=== PATIENT | male | born 1940 | race African-American/Black ===

== ENCOUNTER 2016-09-15 15:59 | Inpatient (IN) ==
[2016-09-15] MEDS ORDERED: methylPREDNISolone SOD SUC 125 MG/2 ML VIAL IV STA (16:54)
[2016-09-15] MEDS ORDERED: ASPIRIN 325 MG TABLET PO STA (16:54)
--- NOTE | 2016-09-15 16:56 | Emergency Department Note ---
IBenjamin Emily, am scribing for, and in the presence of, Grayson Nelson MD 16: 53. Omar Garvin Charles R, MD, personally performed the services described in this documentation, ascribed by Malika Alexander in my presence, and it is both accurate and complete [id number] . Arrival - Arrival Chief Complaint: Shortness of Breath Stated Complaint: short of breath,congestion ED Nursing Triage Note: C/o shortness of breath, productive cough, and congestion-onset one week ago. Denies CP. Mode of Arrival: Wheelchair Limitations: No Limitations Source: Patient, Significant other Time Seen by Provider: 09/15/16 16:28 - History of Present Illness HPI Narrative: Pt is a 76 y/o male who came to ED with c/o SOB with productive cough that has been ongoing for a week now. Pt has associated sx of MEEHAN but notes "seems to have that a lot lately." Pt was in hospital on July 15, 2016, for PE (under supervision of Dr. Adwoa Pepe) that had cardiac arrest 4x, in which had a peg tube and IVC filter placed (Dr. Jamison), but only placed on aspirin daily. Family member notes his peg tube was recently taken out and pt can swallow on his own now. Pt is a former smoker and is constantly on O2 at home. Onset (ago): week(s) Consistency: constant Severity: mild, moderate Severity scale (1-10): 4 Quality: fullness Allergies/Adverse Reactions: Allergies Allergy/AdvReac Type Severity Reaction Status Date / Time No Known Allergies Allergy Verified 06/15/15 21:34 Home Medications: Home Medications Medication Instructions Recorded Confirmed Type Albuterol/Ipratropium Neb [Duoneb] 3 ml RESP TX RT Q6H WA 06/29/16 09/15/16 History Amlodipine Besylate 5 mg PO DAILY 06/29/16 09/15/16 History Aspirin Chew Tab 81 mg PO DAILY 06/29/16 09/15/16 History Cilostazol 100 mg PO BID 06/29/16 09/15/16 History Magnesium Hydroxide Susp [Milk of 30 ml PO Q4H PRN 06/29/16 09/15/16 History Magnesia] Metoprolol Tartrate 50 mg PO BID 06/29/16 09/15/16 History Pentoxifylline 400 mg PO TID W/MEALS 06/29/16 09/15/16 History Polyvinyl Alcohol 1.4% Oph No 1 drop BOTH EYES TID PRN 06/29/16 09/15/16 History [Artificial Tears Oph Soln] clonazePAM TAB [KlonoPIN] 0.25 mg PO BEDTIME 06/29/16 09/15/16 History raNITIdine HCl [Ranitidine HCl] 150 mg PO BID 06/29/16 09/15/16 History Furosemide Tab [Lasix Tab] 40 mg PO DAILY #30 tablet 07/15/16 09/15/16 Rx Albuterol Sulfate [Ventolin HFA] 1 puff INH Q4H 09/15/16 09/15/16 History Metformin HCl 1,000 mg PO BID 09/15/16 09/15/16 History Review of System - Review of System 12 point system: reviewed and no additional remarkable complaints except as stated - Review of System Constitutional: Absent: chills, diaphoresis, fever, weakness Respiratory: Present: cough (productive), respiratory distress Cardiovascular: Present: dyspnea on exertion. Absent: chest pain Gastrointestinal: Absent: abdominal pain, nausea Musculoskeletal: Absent: arm pain, back pain, leg pain, neck pain Skin: Absent: rash Neurological: Absent: headache Medical,Surgical,& Family Hx - Medical History Cardio: History of: CHF, CAD, Hypertension, NC, PVD HEENT: History of: Ear Problem, Eye Problem, Glaucoma No history of: Dental Problems Endocrine: History of: Dyslipidemia Respiratory: History of: COPD (home oxygen), Obstructive Sleep Apnea, Pulmonary Embolism (APR 2016) Gastrointestinal: History of: GERD, Hemorrhoids Musculoskeletal: History of: Back/Neck Problems (chronic back pain) No history of: Amputation Hematology: History of: Clotting Problems (PULMONARY EMBOLISM APR 2016) - Surgical History Cardiac Surgeries: Sugical HX of: Cardiac Catheterization, Vascular Access Devices Neurologic Surgeries: Patient denies: Neurologic Surgery Abdominal Surgeries: Surgical HX of: Abdominal Surgery (PEG PLACEMENT APR 2016) Reproductive Surgeries: Patient denies;: Genitourinary Surgery Orthopedic Surgeries: Surgical HX of;: Orthopedic Surgery (back surgery) - Social History Smoking Status: Former smoker Frequency of Alcohol Use: None Type of Drug Use: None Exam Vital Signs: Vital Signs Temperature 97.6 F 09/15/16 16:23 Pulse Rate 128 H 09/15/16 18:40 Respiratory Rate 28 H 09/15/16 18:40 Blood Pressure 146/73 09/15/16 16:23 O2 Sat by Pulse Oximetry 96 09/15/16 18:40 - General General appearance: alert, in no apparent distress - Head Head exam: Present: atraumatic, normocephalic - Eye Eye exam: Present: PERRL, EOMI - ENT ENT exam: Present: mucous membranes moist. Absent: mucous membranes dry - Neck Neck exam: Present: full ROM. Absent: tenderness - Chest Chest inspection: Present: symmetric chest wall rise, other (barrel chested). Absent: tenderness - Respiratory Respiratory exam: Present: accessory muscle use, wheezes. Absent: normal lung sounds bilaterally (decreased breath sounds due to poor effort), respiratory distress - Cardiovascular Cardiovascular exam: Present: tachycardia, normal heart sounds. Absent: murmur , rubs, gallop - Abdominal Exam Abdominal exam: Present: soft. Absent: distention, tenderness, guarding, rebound - Extremities Exam Extremities exam: Present: full ROM. Absent: tenderness, pedal edema - Neurological Exam Neurological exam: Present: alert, oriented X3, CN II-XII intact. Absent: motor sensory deficit - Psychiatric Psychiatric exam: Present: normal affect, normal mood - Skin Skin exam: Present: warm, dry, intact, normal color Course Course Narrative: Procedure note: Left external jugular vein access using a 16-gauge needle - Consultations Consultation #1: Hospitalist will admit patient Time: 20:04 Results - Labs CBC & BMP: 09/15/16 17:15 09/15/16 17:15 Lab Results: I have reviewed the patients labs Labs: Laboratory Tests 09/15/16 17:15 Hgb 10.1 L Hct 32.7 L MCV 85.4 L MCH 26 L MCHC 30.9 L Laboratory Tests 09/15/16 17:15 Potassium 3.1 L Chloride 91 L Carbon Dioxide 39 H Glucose 148 H Magnesium 1.4 L ALT < 9 L Globulin 4.2 H Albumin/Globulin Ratio 0.8 L Laboratory Tests 09/15/16 18:18 ABG pCO2 59.4 H ABG pO2 77.9 L ABG HCO3 34.8 H ABG Total CO2 34.2 H ABG Base Excess 11.1 H - Diagnostic Findings Procedure: Chest x-ray: report reviewed by me (There are mild bibasilar opacities. This likely represents atelectasis, but PNA is not excluded.), CT - chest: report reviewed by me (PE study: 1. No evidence of pulmonary embolism. 2. Prominent emphysema. 3. There are minimal opacities within both lungs, mainly within the dependent aspects of both lower lobes. This is most consistent with atelectasis and possibly scarring. 4. Probable 1.4cm sebasceous cyst at the right upper back. 5. Partially visualized IVC filter.) Critical Care Time Critical Care Time: Yes Total Critical Care Time: 60 Disposition Clinical Impression: Acute exacerbation of chronic obstructive airways disease, COPD exacerbation, COPD with acute exacerbation, Exertional dyspnea, Hypokalemia, Hypomagnesemia, Debility, History of pulmonary embolus (PE), History of cardiac arrest Case discussed with: patient, patient's family Disposition: Still a Patient Condition: Guarded Time of Disposition: 20:06
--- NOTE | 2016-09-15 16:57 | EKG Report ---
Stationary ECG Study [facility] ER Test Date: 09/15/2016 4:29:21 PM Pat Name: ARANZA STERN Department: Room: 516 Gender: M Processing Technologist: : 1940 Requested by: Grayson Murray Order Number: [id number] Eduardo MD: RISHI BURKETT Intervals [place] Rate: 99 P: 85 AR: 137 QRS: -57 QRSD: 134 T: 77 QT: 371 QTc: 427 Interpretive Statements SINUS RHYTHM At 99 bpm LEFT AXIS DEVIATION RIGHT BUNDLE BRANCH BLOCK Electronically Signed On 09-20-16 15:41:39 CDT by RISHI BURKETT [email or web address]
[2016-09-15] MEDS ORDERED: ALBUTEROL 2.5 MG/3 ML NEB RESP TX SCH (17:00)
[2016-09-15 17:27] LABS: Basophils % 0.4 % (0.0-0.8); Eosinophils # 0.2 10*3/uL (0.0-0.87); Hematocrit 32.7 VOL% (42.0-52.0); Hemoglobin 10.1 GM/DL (14.0-18.0); Immature Granulocytes % 0.3 %; Immature Granulocytes Absolute 0.02 #; Lymphocytes # 2.5 10*3/uL (1.4-4.0); Lymphocytes % 33.7 % (21.2-54.2); Mean Corpuscular HGB Conc 30.9 GM/DL (32-36); Mean Corpuscular Hemoglobin 26 PG (27-34); Mean Corpuscular Volume 85.4 FL (87-102); Mean Platelet Volume 9.6 FL (9.6-12.0); Monocytes # 0.7 10*3/uL (0.11-0.8); Monocytes % 8.8 % (1.7-12.7); Neutrophils % 53.8 % (38.7-73.9); Platelet Count 275 T/CUMM (130-400); Red Blood Count 3.83 MC/CUMM (3.8-5.5); Red Cell Distribution Width 13.3 % (9.3-17.3); White Blood Count 7.4 T/CUMM (4-12)
[2016-09-15 17:50] LABS: Alanine Aminotransferase < 9 U/L (16-61); Albumin 3.4 G/DL (3.4-5.0); Alkaline Phosphatase 81 U/L (45-117); Aspartate Amino Transferase 11 U/L (0-37); Bilirubin,Total < 0.39 MG/DL (0.2-1.0); Blood Urea Nitrogen 11 MG/DL (7-18); Calcium 9.6 MG/DL (8.5-10.1); Glucose 148 MG/DL (74-106); Magnesium 1.4 MG/DL (1.8-2.4); Osmolality,Calculated 276.7 MOS/KG (273-304); Potassium 3.1 MMOL/L (3.5-5.1); Sodium 138 MMOL/L (136-145); Total Protein 7.6 G/DL (6.4-8.3); Troponin I Only < 0.015 NG/ML (0.00-0.045)
[2016-09-15 17:56] LABS: PT Patient Result 11.1 SECS
--- NOTE | 2016-09-15 17:59 | XRay Report ---
Referring Physician: Grayson Nelson Exam: XR chest 1V portable Date: September 15, 2016 at 5:18 PM Reason: Shortness of breath Comparison: Chest one view portable June 21, 2016 Findings: The cardiac silhouette is normal in size, but there is scattered calcified plaque at the thoracic aorta. Mild bibasilar opacities are present. This likely represents atelectasis, but pneumonia is not excluded. No pneumothorax or pleural effusion is identified. No acute osseous process is seen. Impression: There are mild bibasilar opacities. This likely represents atelectasis, but pneumonia is not excluded. PROCEDURE INTERPRETED AT [facility] DEPARTMENT OF RADIOLOGY Final Report Signed by: Dr. Adam Cosme
[2016-09-15] MEDS ORDERED: methylPREDNISolone SOD SUC 125 MG/2 ML VIAL ONE (18:11)
[2016-09-15] MEDS ORDERED: ASPIRIN 325 MG TABLET ONE (18:11)
[2016-09-15] MEDS ORDERED: MAGNESIUM SULF RIDER 2 GM in PREMIX 1 EACH IV STA (18:17)
[2016-09-15 18:41] LABS: ABG Base Excess 11.1 MMOL/L (-2.5-2.5); ABG HCO3 34.8 MMOL/L (20-26); ABG Oxygen Saturation 95.7 % (95-100); ABG PCO2 59.4 MM HG (35-48); ABG PH 7.414 (7.35-7.45); ABG PO2 77.9 MM HG (80-95); ABG TCO2 34.2 MMOL/L (23-27)
[2016-09-15] MEDS ORDERED: POTASSIUM CHLORIDE 20 MEQ TABLET PO STA (19:02)
--- NOTE | 2016-09-15 19:46 | CT Report ---
EXAM: CT chest PE study DATE: September 15, 2016 COMPARISON: CTA chest February 29, 2008 REASON: History of pulmonary embolus and shortness of breath TECHNIQUE: Axial images of the chest were obtained after administration of 80 cc of Omnipaque 350 intravenous contrast. Coronal and sagittal reformatted images were also acquired. The study was performed per pulmonary embolism protocol. Total DLP was 283.8 mGy*cm. FINDINGS: Pulmonary arteries: There is no evidence of pulmonary embolism through the segmental pulmonary arteries. Vascular/heart: The descending thoracic aorta is upper normal in size, measuring 2.8 cm in diameter. There is also moderate to prominent calcified plaque at the arteries, including the coronary arteries. The heart is normal in size, and no pericardial effusion is seen. Lymph nodes: There are stable, mildly prominent right hilar lymph nodes. Their stability since March 05, 2008 suggests a benign process. No suspicious adenopathy is seen. Chest wall: There is a 1.4 cm subdermal lesion at the right upper back on image 4. This is nonspecific but likely represents a sebaceous cyst. Lungs: There is questionable trace right pleural fluid. No pneumothorax is identified. There is prominent emphysema, mainly in a centrilobular distribution and most prominent at the upper lung zones. There are also minimal opacities within both lungs, mainly within the dependent aspects of both lower lobes. This is most consistent with atelectasis and possibly scarring. Calcified granulomas are noted within both lungs. Bones: There is mild degenerative change at the thoracic spine, and there may be a remote sternal fracture. No acute osseous process is seen. Upper abdomen: No acute process is seen within the upper abdomen. There is a partially visualized IVC filter. IMPRESSION: 1. No evidence of pulmonary embolism. 2. Prominent emphysema. 3. There are minimal opacities within both lungs, mainly within the dependent aspects of both lower lobes. This is most consistent with atelectasis and possibly scarring. 4. Probable 1.4 cm sebaceous cyst at the right upper back. 5. Partially visualized IVC filter. PROCEDURE INTERPRETED AT [facility] DEPARTMENT OF RADIOLOGY Final Report Signed by: Dr. Adam Cosme
--- NOTE | 2016-09-15 20:22 | Hospitalist History & Physical ---
Assessment and Plan (1) Acute exacerbation of chronic obstructive airways disease Status: Acute Assessment and plan: duonebs, levaquin, solumedrol and oxygen Current Visit: Yes (2) History of cardiac arrest Status: Acute Assessment and plan: in the past, serial troponins and monitor Current Visit: Yes (3) History of pulmonary embolus (PE) Status: Acute Assessment and plan: chest ct shows no evidence of PE Current Visit: Yes (4) Hypokalemia Status: Acute Assessment and plan: replacing, KCL 40 meq in ER and again 40 meq on the floor Current Visit: Yes (5) Hypomagnesemia Status: Acute Assessment and plan: 2 grams IV given in ER and 2 grams IV again in 2 hours Current Visit: Yes (6) DMII (diabetes mellitus, type 2) Status: Chronic Assessment and plan: isc, hgb a1c Current Visit: No History of Present Illness Chief complaint: sob History of present illness: Mr. Morfin is a 76 y/o male who came to ED with c/o SOB with productive cough that has been ongoing for a week now. Pt has some chest tightness in the mid part of his chest. No radiation. Patient very sleepy most likely due to his elevated CO2. Would keep O2 sats between 88 and 91. Too much oxygen will increase his CO2 which will increase his lethargy. Will ask Dr. Pepe to see him. Chest CT today shows no evidence of PE. Pt was in hospital on July, for PE and cardiac arrest 4x. Patient uses 3 liters of oxygen at home, he is extremely weak. Home Medications Medication Instructions Recorded Confirmed Type Albuterol/Ipratropium Neb [Duoneb] 3 ml RESP TX RT Q6H WA 06/29/16 09/15/16 History Amlodipine Besylate 5 mg PO DAILY 06/29/16 09/15/16 History Aspirin Chew Tab 81 mg PO DAILY 06/29/16 09/15/16 History Cilostazol 100 mg PO BID 06/29/16 09/15/16 History Magnesium Hydroxide Susp [Milk of 30 ml PO Q4H PRN 06/29/16 09/15/16 History Magnesia] Metoprolol Tartrate 50 mg PO BID 06/29/16 09/15/16 History Pentoxifylline 400 mg PO TID W/MEALS 06/29/16 09/15/16 History Polyvinyl Alcohol 1.4% Oph No 1 drop BOTH EYES TID PRN 06/29/16 09/15/16 History [Artificial Tears Oph Soln] clonazePAM TAB [KlonoPIN] 0.25 mg PO BEDTIME 06/29/16 09/15/16 History raNITIdine HCl [Ranitidine HCl] 150 mg PO BID 06/29/16 09/15/16 History Furosemide Tab [Lasix Tab] 40 mg PO DAILY #30 tablet 07/15/16 09/15/16 Rx Albuterol Sulfate [Ventolin HFA] 1 puff INH Q4H 09/15/16 09/15/16 History Metformin HCl 1,000 mg PO BID 09/15/16 09/15/16 History Allergies Allergy/AdvReac Type Severity Reaction Status Date / Time No Known Allergies Allergy Verified 06/15/15 21:34 Medical,Surgical,& Family Hx - Medical History Cardio: History of: CHF, CAD, Hypertension, PR, PVD HEENT: History of: Ear Problem, Eye Problem, Glaucoma No history of: Dental Problems Endocrine: History of: Dyslipidemia Respiratory: History of: COPD (home oxygen), Obstructive Sleep Apnea, Pulmonary Embolism (APR 2016) Gastrointestinal: History of: GERD, Hemorrhoids Musculoskeletal: History of: Back/Neck Problems (chronic back pain) No history of: Amputation Hematology: History of: Clotting Problems (PULMONARY EMBOLISM APR 2016) - Surgical History Cardiac Surgeries: Sugical HX of: Cardiac Catheterization, Vascular Access Devices Neurologic Surgeries: Patient denies: Neurologic Surgery Abdominal Surgeries: Surgical HX of: Abdominal Surgery (PEG PLACEMENT APR 2016) Reproductive Surgeries: Patient denies;: Genitourinary Surgery Orthopedic Surgeries: Surgical HX of;: Orthopedic Surgery (back surgery) - Family History Family History: Reports;: Family Diabetes, Family Hypertension - Social History Smoking Status: Former smoker Frequency of Alcohol Use: None Type of Drug Use: None Marital Status: Lives With:: Spouse Functional capacity: independent ambulation - Constitutional Constitutional: Present: fatigue, headache(s). Absent: fever(s), frequent falls - EENT Eyes: Absent: blurry vision, loss of vision Ears: Present: decreased hearing. Absent: ear discharge Nose, mouth and throat: Present: headache(s). Absent: sore throat - Cardiovascular Cardiovascular: Present: chest pain at rest, dyspnea, dyspnea on exertion, orthopnea, palpitations, PND. Absent: edema - Respiratory Respiratory: Present: cough, dyspnea, dyspnea on exertion, wheezing. Absent: change in phlegm color - Gastrointestinal Gastrointestinal: Present: constipation. Absent: diarrhea, nausea, vomiting - Genitourinary Genitourinary: Absent: difficulty urinating, dysuria - Neurological Neurological: Present: confusion, headache(s). Absent: focal weakness - Psychiatric Psychiatric: Absent: anxiety, depression - Endocrine Endocrine: Present: fatigue. Absent: cold intolerance - Hematologic/Lymphatic Hematologic/Lymphatic: Absent: easy bleeding, easy bruising Exam - Constitutional Vitals: Period Temp Pulse Resp BP Sys/Gilbert Pulse Ox Last 24 Hr 97.6 F-97.6 F 97-128 18-28 146-146/73-73 96-100 General appearance: normal weight, mild distress - Head Head exam: Present: normal inspection, normocephalic - Eye Eye exam: Present: EOMI. Absent: scleral icterus Pupils: Present: DILSHAD, normal accommodation - ENT ENT exam: Present: normal exam, normal external ear exam - Neck Neck exam: Absent: lymphadenopathy, thyromegaly - Respiratory Respiratory exam: Present: decreased breath sounds, wheezes. Absent: rales, rhonchi - Cardiovascular Cardiovascular exam: Present: regular rate and rhythm, tachycardia - GI/Abdominal GI/Abdominal exam: Present: normal bowel sounds, soft. Absent: tenderness - Extremities Exam Extremities exam: Present: normal inspection, normal capillary refill. Absent: edema - Neurological Exam Neurological exam: Present: altered, reflexes normal, other (unable to cooperate with exam) - Psychiatric Psychiatric exam: Present: depressed, flat affect - Skin Skin exam: Present: normal color, warm Results - Labs CBC & BMP: 09/15/16 17:15 09/15/16 17:15 Lab Results: I have reviewed the past 24 hour labs - EKG EKG shows: sinus rhythm (Right bundle branch block) - Diagnostic Findings Procedure: Chest x-ray: report reviewed by me (bilateral atelectasis), CT - chest: report reviewed by me (severe copd, no pe, bilateral atelectasis )
[2016-09-15] MEDS ORDERED: POTASSIUM CHLORIDE 20 MEQ TABLET PO ONE ×2 (21:37→22:13)
[2016-09-15] MEDS ORDERED: MAGNESIUM SULF RIDER 50 ML IV ONE (21:42)
[2016-09-15] MEDS ORDERED: ALBUTEROL 2.5 MG/3 ML NEB RESP TX PRN (22:13)
[2016-09-15] MEDS ORDERED: POLYVINYL ALCOHOL 1.4% OPH SOLN 15 ML BOTTLE BOTH EYES PRN (22:13)
[2016-09-15] MEDS ORDERED: ONDANSETRON 4 MG/2 ML VIAL IV PRN (22:13)
[2016-09-15] MEDS ORDERED: ACETAMINOPHEN 325 MG TABLET PO PRN (22:13)
[2016-09-15] MEDS: CILOSTAZOL 50 MG TABLET PO SCH (22:47)
[2016-09-15] MEDS: DILTIAZEM CD 120 MG CAPSULE PO SCH (22:47)
[2016-09-15] MEDS: clonazePAM 0.5 MG TABLET PO SCH (22:47)
[2016-09-15] MEDS: BUDESONIDE/FORMOTEROL 160-4.5 INHALER 6 GM INH SCH (22:55)
[2016-09-15] MEDS ORDERED: LEVOFLOXACIN INJ 750 MG in PREMIX 1 EACH IV SCH (23:00)
[2016-09-16] MEDS ORDERED: MAGNESIUM SULF RIDER 2 GM in PREMIX 1 EACH IV ONE
[2016-09-16] MEDS: ALBUTEROL/IPRATROPIUM 3 ML NEB RESP TX SCH ×4 (00:52→19:37)
[2016-09-16] MEDS: methylPREDNISolone SOD SUC 40 MG/1 ML VIAL IV SCH ×3 (02:10→15:40)
[2016-09-16 02:13] LABS: Basophils % 0.1 % (0.0-0.8); Immature Granulocytes % 1.3 %; Immature Granulocytes Absolute 0.09 #; Lymphocytes # 0.3 10*3/uL (1.4-4.0); Lymphocytes % 4.4 % (21.2-54.2); Mean Corpuscular Hemoglobin 26 PG (27-34); Mean Corpuscular Volume 83.8 FL (87-102); Mean Platelet Volume 10.4 FL (9.6-12.0); Monocytes # 0.1 10*3/uL (0.11-0.8); Monocytes % 0.7 % (1.7-12.7); Neutrophils # 6.6 10*3/uL (1.4-7.4); Neutrophils % 93.5 % (38.7-73.9); Platelet Count 263 T/CUMM (130-400); Red Blood Count 3.46 MC/CUMM (3.8-5.5); Red Cell Distribution Width 13.4 % (9.3-17.3); White Blood Count 7.1 T/CUMM (4-12)
[2016-09-16 02:17] LABS: Calcium 9.1 MG/DL (8.5-10.1); Magnesium 1.7 MG/DL (1.8-2.4); Potassium 2.9 MMOL/L (3.5-5.1)
[2016-09-16 03:49] LABS: Lymphocytes 5 % (20-55); Platelet Estimate Normal; Segmented Neutrophils 94 % (50-85); Total Cells Counted 100
--- NOTE | 2016-09-16 08:20 | Physician Query Form ---
CLICK EDIT DOCUMENT TO SELECT QUERY ANSWER --> OK --> SIGN Sandy Carrasco RN, CCDS Certified Clinical Financial Planning Adviser W) [phone] (f) [phone] [email or web address] PROVIDERS: Make your selection(s) from the choices in EACH section by typing an "x" and enter comments in the comment section. Please use your independent medical judgment in providing your response. This request does not imply that any particular answer is desired or expected. CLINICAL INDICATORS: (Providers should not edit this section) The medical record indicates that the patient was admitted with COPD exacerbation, "constantly on O2 at home", "Patient uses 3 liters of oxygen at home", RR in the ER 28#, "O2 Sat by Pulse Oximetry 96", the patient was admitted and placed on 2 liters per NC. Based on the above, could you clarify the appropriate diagnosis, if significant , that supports the above abnormalities and additional evaluation, monitoring, and/or treatment rendered: (x ) The patient is being treated or monitored for chronic respiratory failure ( ) The patient is not being treated or monitored for chronic respiratory failure ( ) Other, please specify: ( ) Clinically unable to determine COMMENTS: Use of terms such as suspected, likely, or probable (associated with a specific diagnosis that is being evaluated, monitored, or treated as if it exists) are acceptable and can be restated in the discharge summary if not ruled out. MTDD
[2016-09-16] MEDS ORDERED: ENOXAPARIN 40 MG/0.4 ML SYRINGE SUBCUT SCH (09:00)
[2016-09-16] MEDS: DILTIAZEM CD 120 MG CAPSULE PO SCH ×2 (09:17→21:44)
[2016-09-16] MEDS: CILOSTAZOL 50 MG TABLET PO SCH ×2 (09:17→21:46)
[2016-09-16] MEDS: PENTOXIFYLLINE 400 MG TABLET PO SCH ×3 (09:18→16:57)
[2016-09-16] MEDS: amLODIPine 5 MG TABLET PO SCH (09:18)
[2016-09-16] MEDS: PANTOPRAZOLE 40 MG TABLET PO SCH (09:18)
[2016-09-16] MEDS: ASPIRIN CHEW 81 MG TABLET PO SCH (09:18)
[2016-09-16] MEDS: BUDESONIDE/FORMOTEROL 160-4.5 INHALER 6 GM INH SCH (10:21)
[2016-09-16] MEDS: POTASSIUM CHLORIDE RIDER 10 MEQ in PREMIX 1 EACH IV PRN ×3 (10:25→13:08)
--- NOTE | 2016-09-16 10:27 | Hospitalist Progress Note ---
Assessment and Plan (1) Elevated troponin Status: Acute Assessment and plan: Patient has a high risk for ACS. Plan telemetry increase lovenox to 1mg/kg q12 ASA Echo Cardiology consult lipids TSH metoprolol 12.5bid EKG Current Visit: Yes (2) COPD exacerbation Status: Resolved Assessment and plan: continue with duonebs, levaquin, solumedrol and oxygen . Current Visit: No (3) History of pulmonary embolus (PE) Status: Acute Assessment and plan: Chest CT shows no evidence of PE Current Visit: Yes (4) Type 2 diabetes mellitus Status: Acute Assessment and plan: Poorly controlled. -will start Lantus 10units qhs, follow response -will get HbA1c level Current Visit: No (5) History of cardiac arrest Status: Acute Assessment and plan: in the past, will follow Cardiology consult. continue with Telemetry Current Visit: Yes (6) Hypokalemia Status: Acute Assessment and plan: will continue to replete, and also replete magnesium. BMP in am Current Visit: Yes (7) Hypomagnesemia Status: Acute Assessment and plan: will continue to replete. BMP in am Current Visit: Yes (8) Leg pain, bilateral Status: Acute Assessment and plan: patient has a poor circulation in his feet. Will continue his home meds and consider a vascular consult once his cardiac status has been sorted out. Current Visit: No Hospitalist: Subjective Interval history: Patient seen this am, his troponin is creeping up but patient denies chestpain or tightness but has a lot of leg pain. He has an underlying history of poor circulation. Exam - Constitutional Vitals: Period Temp Pulse Resp BP Sys/Gilbert Pulse Ox Last 24 Hr 98 F-98.2 F 103-119 20-20 118-129/49-54 89-100 General appearance: no acute distress - Neck Neck exam: Present: normal inspection - Respiratory Respiratory exam: Present: clear to auscultation bilaterally - Cardiovascular Cardiovascular exam: Present: regular rate and rhythm - GI/Abdominal GI/Abdominal exam: Present: normal bowel sounds - Extremities Exam Extremities exam: Present: other (poor circulation and tenderness bilterally.) Results - Labs CBC & BMP: 09/16/16 01:23 09/16/16 01:23 Lab Results: I have reviewed the past 24 hour labs
[2016-09-16] MEDS ORDERED: METOPROLOL TARTRATE 25 MG TABLET PO SCH (10:30)
[2016-09-16 10:36] LABS: Free T4 (Free Thyroxine) 0.97 NG/DL (0.76-1.46); Risk Ratio 2.91; Thyroid Stimulating Hormone 0.349 uIU/ml (0.358-3.74); VLDL CHOLESTEROL 9.6 MG/DL
[2016-09-16] MEDS: ENOXAPARIN 60 MG/0.6 ML SYRINGE SUBCUT SCH (11:28)
--- NOTE | 2016-09-16 12:02 | EKG Report ---
Stationary ECG Study [facility] Test Date: 09/16/2016 12:02:24 PM Pat Name: ARANZA STERN Department: Room: 516 Gender: M Hydrological Technical Officer: TITI : 1940 Requested by: Madelaine Traore Order Number: [id number] Reading MD: RISHI BURKETT Intervals [place] Rate: 99 P: 87 ME: 142 QRS: 78 QRSD: 134 T: 81 QT: 376 QTc: 432 Interpretive Statements SINUS RHYTHM at 99 bpm INDETERMINATE AXIS RIGHT BUNDLE BRANCH BLOCK POSSIBLE ANTEROSEPTAL MYOCARDIAL INFARCTION, OF INDETERMINATE AGE Electronically Signed On 09-20-16 16:07:11 CDT by RISHI BURKETT [id number]
--- NOTE | 2016-09-16 17:14 | ECHO Report ---
Navjot Arya Exam Date: 09/16/2016 10:01 Referring Physician: Technologist: Teagan Rollins Age: 76 Ht (in): 64 Wt (lb): 136 Gender: M Exam Location: [facility] Echo Indications: COPD, hypokalemia, Cardiac arrest, PE, hypomagnesemia BP: 129 / 54 HR: 118 Rhythm: Sinus Technical Quality: Technically difficult study IMPRESSIONS 1. Technically difficult study 2. Normal chamber sizes 3. 1+ concentric LVH 4. Hyperdynamic LV systolic function with ejection fraction estimated be 70% without segmental wall motion mildly 5. Aortic sclerosis without stenosis 6. 1+ tricuspid regurgitation with RVSP 13 mmHg plus RAP MEASUREMENTS (Male / Female) Normal Values 2D ECHO LV Diastolic Diameter PLAX 4.0 cm 4.2 - 5.9 / 3.9 - 5.3 cm LV Systolic Diameter PLAX 2.3 cm LV Fractional Shortening PLAX 41.7 % IVS Diastolic Thickness 1.2 cm 0.6 - 1.0 / 0.6 - 0.9 cm LVPW Diastolic Thickness 1.1 cm 0.6 - 1.0 / 0.6 - 0.9 cm RV Internal Dim ED PLAX 2.3 cm Aortic Root Diameter 2.2 cm LA Systolic Diameter LX 2.7 cm 3.0 - 4.0 / 2.7 - 3.8 cm DOPPLER TR Peak Velocity 182.0 cm/s TR Peak Gradient 13.2 mmHg FINDINGS Left Ventricle Mildly increased septal wall thickness.mild concentric left ventricular hypertrophy with diastolic dysfunction. Left ventricular ejection fraction is estimated at Right Ventricle Normal right ventricular size. Right Atrium Normal right atrial size. Left Atrium Normal left atrial size. Mitral Valve Mild mitral valve sclerosis. Aortic Valve Mild aortic valve sclerosis. Tricuspid Valve Morphologically normal tricuspid valve. Mild tricuspid valve regurgitation. Tricuspid regurgitation velocities suggest a PAP of 13.2 mmHg + RAP. Pulmonic Valve Pulmonic valve not well visualized. Trace pulmonary valve regurgitation. Pericardium No pericardial effusion. Aorta Normal size aortic root and proximal ascending aorta. Kian Stanton (Electronically Signed) Final Date: 16 Sep 2016 17:13
--- NOTE | 2016-09-16 17:26 | Cardiology Consult Note ---
Tray Garvin Vanessa, RN, am scribing for, and in the presence of, Kian Stanton MD 17:13. Assessment and Plan - Time spent with patient Time spent with patient: Greater than 30 minutes (Due to assessment, planning, documentation, and medication review) (1) Acute exacerbation of chronic obstructive pulmonary disease (COPD) Status: Acute Assessment and plan: INITIAL CONSULT SEPTEMBER 16, 2016: ASSESSMENT/PLAN: 1. 76-year-old BM remote smoker with multiple medical problems including hypertension, COPD, CAD, status post prolonged hospitalization April 2016 with bilateral submassive PE and cardiac arrest (eventually received IVC filter due to GI bleeding) with chronic dyspnea on exertion orthopnea who now presents with some shortness of breath at rest and worsening in his usual dyspnea on exertion, possible COPD exacerbation. 2. Trivial troponin elevation to 0.1 with chronic right bundle branch block 3. Echocardiogram today shows ejection fraction of 70% with mild LVH; he could have some degree of diastolic heart failure. 4. PAD with history of foot wounds, and claudication in ABIs of 0.5 0.4 noted last year on the right and left side respectively 5. Change metoprolol to Toprol 25 mg twice daily 6. Add Crestor 20 mg daily given his CAD and PAD Current Visit: Yes (2) History of cardiac arrest Status: Acute Current Visit: Yes (3) History of pulmonary embolus (PE) Status: Acute Current Visit: Yes (4) Hypokalemia Status: Acute Current Visit: Yes (5) Hypomagnesemia Status: Acute Current Visit: Yes (6) Acute on chronic renal failure Status: Acute Current Visit: No (7) Anemia Status: Acute Current Visit: No History of Present Illness - Data of Consult Patient: known to practice within the last 3 years Consult date: 09/16/16 Requesting Physician: Madelaine Traore - Consult Narrative Reason for consult: abnormal CTNI (0.139) History of present illness: PRIMARY CATASTROPHE CLAIMS SUPERVISOR: DR. MICK SCHWARTZ PCP: DR. FRANKY GASCA Mr. Morfin is a 76 year old black male routinely followed by cardiology. Risk factors include: age, hypertension, diabetes, hyperlipidemia, known history of CAD. Past medical history also significant for CHF and cardiomyopathy , severe PVD, atrial tachycardia, obstructive sleep apnea with use of home O2 also, and COPD, IVC filter. He had a complicated hospital course in April 2016 after having a cardiac arrest x 4, taken for emergent cardiac catheterization, and then treated for bilateral pulmonary emboli with EKOS therapy. He recovered neurologically, did have prolonged mechanical ventilation , required transfer to LTAC facility. Patient presented to the emergency room on and he had complaints of shortness of breath and a productive cough with onset 1 week prior. He also admitted to some dyspnea on exertion and felt that it may have increased in severity recently. Chest x-ray had mild bibasilar opacities which likely represented atelectasis, but pneumonia cannot be excluded CT chest revealed no PE, did show prominent emphysema, and minimal opacities in both lower lobes most consistent with atelectasis and scarring. Patient was admitted to [facility] floor per hospital medicine for treatment of COPD exacerbation, hypokalemia, hypomagnesemia, and general debility. Cardiac biomarkers revealed an initial negative troponin level, and subsequent serial troponin check with flat, trivial troponin levels (0.043, 0.075, 0.153), and EKG sinus rhythm with RBBB and no acute ST segment changes. Cardiology has been consulted to evaluate troponin levels. Emergent left heart catheterization per Dr. Schwartz April 27, 2016 after cardiac arrest clinical findings suspicious for PE or ACS. Cardiac cath with the following impression and plan: Impression: -Successful placement of pacemaker in RV apex from the right femoral vein -Coronary artery disease-occluded right coronary-initially thought to be an acute [place] but could not be crossed and old film showed it was an old occlusion- no new CAD -Attempted angioplasty of the occluded right coronary artery-unsuccessful -Pulmonary arteriogram-multiple areas of cut off vessels, consistent with pulmonary embolus-does not appear to be a saddle pulmonary embolus -Placement of ekos catheters in the right and left pulmonary artery -Infusion of Activase in both ekos catheters -All femoral veins/sheaths were sewn into place because of being in a lytic state -Multiple episodes of CPR during the procedure-in extremis -Epinephrine dependent-it is required to keep his blood pressure adequate -Neurologically Unresponsive-for therapeutic hypothermia Plan/recommendations: The patient is post cardiac arrest. He has multiple problems. The chance of surviving is very small. He has severe COPD. Also has coronary disease. However his coronaries is not changed. Therapeutic hypothermia with a slightly higher target of 36C because of the possibility of bleeding with the lytics and pulmonary artery lytic we'll be given. Hopefully he will survive. Prognosis is grim. Discussion was had with the family, including grim prognosis. I conferred care with Dr. Canales, his thermite bomb loader in the hospital. Most recent echocardiogram May 2016 with mild LVH, ejection fraction 55%, mild diastolic dysfunction, PA pressure 37-42 mmHg. Mr. Morfin is sitting up on side of bed this afternoon upon exam. He is alert and eating lunch without difficulty. Patient is a very poor historian, and his is not present. He is able to tell that he does have a chest pain from time to time "around the bottom of my heart" and points toward left axillary area. He reports that when he experiences this discomfort, he is able to reposition and pain goes away on its own. He tells me that it happens "maybe every 5 days or so." Denies acute dyspnea at this time, and tells me he feels better after receiving nebulizer treatments. Reports that recently, he feels that he has been more short of breath and describes it as "my breath takes over me." Upon exam, he is not in any acute respiratory distress. Skin is warm and dry. Bilateral lower extremities are supported in soft boots, and dressings noted to bilateral dorsalis pedis sites. Bilateral heel dressings are in place also. There is mention in previous records that Dr. Jamison had spoken with patient's regarding lower extremity angiography/contrast studies. Potassium is 2.9 today, and is being repleted per IV protocol and with p.o. supplementation as well. Hypomagnesemia with slight improvement from 1.4 to 1.7 today, and IV mag sulfate 2 gms was also given earlier today. EKG this afternoon displays sinus rhythm and right bundle branch block, no acute ischemic findings, and it is unchanged from previous studies. Blood pressure well controlled and is 130/60. Pulse is 90s-100 bpm and regular. Denies recent fever or chills, but temperature this afternoon 99.3F is noted. Does have a cough, and reports that he is productive from time to time but cannot specify sputum color. Denies recent hematuria, melena, abdominal pain, orthopnea, PND, palpitation, presyncope, or exertional anginal complaint. CC: Madelaine Traore MD - Home Medications and Allergies Home Medications: Home Medications Medication Instructions Recorded Confirmed Type Albuterol/Ipratropium Neb [Duoneb] 3 ml RESP TX RT Q6H WA 06/29/16 09/15/16 History Amlodipine Besylate 5 mg PO DAILY 06/29/16 09/15/16 History Aspirin Chew Tab 81 mg PO DAILY 06/29/16 09/15/16 History Cilostazol 100 mg PO BID 06/29/16 09/15/16 History Magnesium Hydroxide Susp [Milk of 30 ml PO Q4H PRN 06/29/16 09/15/16 History Magnesia] Metoprolol Tartrate 50 mg PO BID 06/29/16 09/15/16 History Pentoxifylline 400 mg PO TID W/MEALS 06/29/16 09/15/16 History Polyvinyl Alcohol 1.4% Oph No 1 drop BOTH EYES TID PRN 06/29/16 09/15/16 History [Artificial Tears Oph Soln] clonazePAM TAB [KlonoPIN] 0.25 mg PO BEDTIME 06/29/16 09/15/16 History raNITIdine HCl [Ranitidine HCl] 150 mg PO BID 06/29/16 09/15/16 History Furosemide Tab [Lasix Tab] 40 mg PO DAILY #30 tablet 07/15/16 09/15/16 Rx Albuterol Sulfate [Ventolin HFA] 1 puff INH Q4H 09/15/16 09/15/16 History Metformin HCl 1,000 mg PO BID 09/15/16 09/15/16 History Allergies/Adverse Reactions: Allergies Allergy/AdvReac Type Severity Reaction Status Date / Time No Known Allergies Allergy Verified 06/15/15 21:34 - Constitutional Constitutional: Present: as per HPI - EENT Eyes: Present: as per HPI Nose, mouth and throat: Present: as per HPI - Cardiovascular Cardiovascular: Present: as per HPI - Respiratory Respiratory: Present: as per HPI - Gastrointestinal Gastrointestinal: Present: as per HPI - Genitourinary Genitourinary: Present: as per HPI - Musculoskeletal Musculoskeletal: Present: as per HPI - Neurological Neurological: Present: as per HPI - Psychiatric Psychiatric: Present: as per HPI - Endocrine Endocrine: Present: as per HPI - Hematologic/Lymphatic Hematologic/Lymphatic: Present: as per HPI Medical,Surgical,& Family Hx - Medical History Cardio: History of: CHF, CAD, Hypertension, [place], PVD HEENT: History of: Ear Problem, Eye Problem, Glaucoma No history of: Dental Problems Endocrine: History of: Diabetes Mellitus (NIDDM), Dyslipidemia Respiratory: History of: COPD (home oxygen), Obstructive Sleep Apnea, Pulmonary Embolism (APR 2016) Gastrointestinal: History of: GERD, Gastrointestinal Bleed, Hemorrhoids Musculoskeletal: History of: Back/Neck Problems (chronic back pain) No history of: Amputation Hematology: History of: Anemia, Clotting Problems (PULMONARY EMBOLISM APR 2016) - Surgical History Cardiac Surgeries: Sugical HX of: Cardiac Catheterization, Vascular Access Devices Patient Denies: Carotid Endarterectomy, Internal Defibrillator Neurologic Surgeries: Patient denies: Neurologic Surgery Abdominal Surgeries: Surgical HX of: Abdominal Surgery (PEG PLACEMENT APR 2016) Reproductive Surgeries: Patient denies;: Genitourinary Surgery Orthopedic Surgeries: Surgical HX of;: Orthopedic Surgery (back surgery) - Family History Family History: Reports;: Family Diabetes, Family Hypertension - Social History Smoking Status: Former smoker Frequency of Alcohol Use: None Type of Drug Use: None Physical Examination Vital Signs Temp Pulse Resp BP Pulse Ox 97.6 F 105 H 24 146/73 99 09/15/16 16:23 09/15/16 16:23 09/15/16 16:23 09/15/16 16:23 09/15/16 16:23 General: Present: No Apparent Distress HEENT: Present: PERRL, Normocephaly. Absent: Jaundice, Oral Lesions Neck: Present: Supple Neck, Midline Trachea, No JVD/HJR. Absent: Masses Cardiac: Present: Regular Rhythm, No Murmur, Tachycardia. Absent: Bradycardia Lungs: Present: Decreased Breath Sounds, Wheezes, Oxygen, No Rales, No Rhonchi Neuro: Present: Weakness. Absent: Numbness, Tingling, Resting Tremor, Essential Tremor Abdomen: Present: Soft, Active Bowel Sounds, No Masses, No Pulsations/Bruits. Absent: Ascites, Tender, Firm, Distended Skin: Present: Other (Wounds to bilateral heels with dry and intact dressings; dry/intact dressing to dorsum of feet). Absent: Bruising Musculoskeletal: Present: Decreased Range of Motion Extremities: Present: No Clubbing, No Cyanosis, No Edema, Normal Upper Extr. Pulses (2+ bilaterally), Capillary Refill (Normal), Other (Bilateral lower extremity DP pulses faint/intermittent; PT pulses are fair bilaterally). Absent : Edema, Mottled Result/EKG - Labs CBC & BMP: 09/16/16 01:23 09/16/16 01:23 Lab Results: I have reviewed the past 24 hour labs (Due to assessment, planning , documentation, medication review) Labs: Laboratory Results - last 24 hr 09/15/16 09/15/16 09/15/16 21:46 22:31 22:31 WBC RBC Hgb Hct MCV MCH MCHC RDW Plt Count MPV Neut % (Auto) Lymph % (Auto) [place] % (Auto) Eos % (Auto) Baso % (Auto) Neut # (Auto) Lymph # (Auto) [place] # (Auto) Eos # (Auto) Baso # (Auto) Total Counted Immature Gran % Nucleated RBC % Immature Gran # Segmented Neutrophils Lymphocytes Monocytes Nucleated RBCs # Platelet Estimate Sodium Potassium Chloride Carbon Dioxide Anion Gap BUN Creatinine GFR Calculation BUN/Creatinine Ratio Glucose POC Glucose 335 H Hemoglobin A1c 8.1 H Calculated Osmolality Calcium Magnesium Troponin I B-Natriuretic Peptide 46 09/15/16 09/16/16 09/16/16 22:31 01:23 01:23 WBC 7.1 RBC 3.46 L Hgb 9.0 L Hct 29.0 L MCV 83.8 L MCH 26 L MCHC 31.0 L RDW 13.4 Plt Count 263 MPV 10.4 Neut % (Auto) 93.5 H Lymph % (Auto) 4.4 L [place] % (Auto) 0.7 L Eos % (Auto) 0.0 Baso % (Auto) 0.1 Neut # (Auto) 6.6 Lymph # (Auto) 0.3 L [place] # (Auto) 0.1 L Eos # (Auto) 0.0 Baso # (Auto) 0.0 Total Counted 100 Immature Gran % 1.3 Nucleated RBC % 0.0 Immature Gran # 0.09 Segmented Neutrophils 94 H Lymphocytes 5 L Monocytes 1 L Nucleated RBCs # 0.00 Platelet Estimate Normal Sodium Potassium Chloride Carbon Dioxide Anion Gap BUN Creatinine GFR Calculation BUN/Creatinine Ratio Glucose POC Glucose Hemoglobin A1c Calculated Osmolality Calcium Magnesium Troponin I 0.043 0.075 H D B-Natriuretic Peptide 09/16/16 09/16/16 01:23 08:10 WBC RBC Hgb Hct MCV MCH MCHC RDW Plt Count MPV Neut % (Auto) Lymph % (Auto) [place] % (Auto) Eos % (Auto) Baso % (Auto) Neut # (Auto) Lymph # (Auto) [place] # (Auto) Eos # (Auto) Baso # (Auto) Total Counted Immature Gran % Nucleated RBC % Immature Gran # Segmented Neutrophils Lymphocytes Monocytes Nucleated RBCs # Platelet Estimate Sodium 136 Potassium 2.9 L Chloride 90 L Carbon Dioxide 34 H Anion Gap 14.9 BUN 17 Creatinine 1.80 H GFR Calculation 41 BUN/Creatinine Ratio 9.00 Glucose 386 H POC Glucose Hemoglobin A1c Calculated Osmolality 289.0 Calcium 9.1 Magnesium 1.7 L Troponin I 0.139 H D B-Natriuretic Peptide - Diagnostic Findings Procedure: Chest x-ray: image reviewed by me, report reviewed by me - EKG EKG results: interpreted by me, no acute changes EKG shows: tachycardia (sinus tachycardia; RBBB) Maximino Garvin Randall Scott, MD, personally performed the services described in this documentation, ascribed by Gabriella Feliz RN in my presence, and it is both accurate and complete 725 .
[2016-09-16] MEDS ORDERED: INSULIN GLARGINE 100 UNIT/ML SUBCUT SCH (21:00)
[2016-09-16] MEDS: METOPROLOL SUCCINATE XL 25 MG TABLET PO SCH (21:46)
[2016-09-16] MEDS: clonazePAM 0.5 MG TABLET PO SCH (21:47)
[2016-09-17] MEDS: methylPREDNISolone SOD SUC 40 MG/1 ML VIAL IV SCH ×5 (00:14→22:10)
[2016-09-17] MEDS: ENOXAPARIN 60 MG/0.6 ML SYRINGE SUBCUT SCH ×3 (00:14→22:02)
[2016-09-17] MEDS: BUDESONIDE/FORMOTEROL 160-4.5 INHALER 6 GM INH SCH ×3 (00:15→21:08)
[2016-09-17] MEDS: ALBUTEROL/IPRATROPIUM 3 ML NEB RESP TX SCH ×4 (02:21→19:08)
[2016-09-17 06:19] LABS: Basophils % 0.1 % (0.0-0.8); Hematocrit 28.4 VOL% (42.0-52.0); Immature Granulocytes % 0.4 %; Immature Granulocytes Absolute 0.05 #; Lymphocytes # 0.8 10*3/uL (1.4-4.0); Lymphocytes % 6.8 % (21.2-54.2); Mean Corpuscular HGB Conc 31.7 GM/DL (32-36); Mean Corpuscular Hemoglobin 26 PG (27-34); Mean Corpuscular Volume 82.8 FL (87-102); Mean Platelet Volume 10.4 FL (9.6-12.0); Monocytes # 0.2 10*3/uL (0.11-0.8); Neutrophils # 10.7 10*3/uL (1.4-7.4); Neutrophils % 90.7 % (38.7-73.9); Platelet Count 259 T/CUMM (130-400); Red Blood Count 3.43 MC/CUMM (3.8-5.5); Red Cell Distribution Width 13.4 % (9.3-17.3); White Blood Count 11.8 T/CUMM (4-12)
[2016-09-17 06:49] LABS: Osmolality,Calculated 282.8 MOS/KG (273-304)
[2016-09-17 06:50] LABS: Band Neutrophils 1 % (0-10); Hypochromasia 1+; Lymphocytes 3 % (20-55); Microcytosis 1+; Segmented Neutrophils 95 % (50-85); Total Cells Counted 100
--- NOTE | 2016-09-17 07:40 | EKG Report ---
Stationary ECG Study [facility] Test Date: 09/17/2016 7:40:28 AM Pat Name: ARANZA STERN Department: Room: 516 Gender: M Manager Switch: : [id number] Requested by: Kian Hawkins Order Number: [id number] Reading MD: DORIAN PALACIOS Intervals [place] Rate: 98 P: 75 DC: 127 QRS: 83 QRSD: 137 T: 62 QT: 384 QTc: 440 Interpretive Statements SINUS RHYTHM WITH OCCASIONAL VENTRICULAR PREMATURE COMPLEXES RIGHT AXIS RIGHT BUNDLE BRANCH BLOCK ANTEROSEPTAL MYOCARDIAL INFARCTION, OF INDETERMINATE AGE Electronically Signed On 09-20-16 16:17:41 CDT by DORIAN PALACIOS [email or web address]
[2016-09-17] MEDS: ROSUVASTATIN 20 MG TABLET PO SCH (09:56)
[2016-09-17] MEDS: METOPROLOL SUCCINATE XL 25 MG TABLET PO SCH ×2 (09:56→21:01)
[2016-09-17] MEDS: PENTOXIFYLLINE 400 MG TABLET PO SCH ×3 (09:57→17:20)
[2016-09-17] MEDS: DILTIAZEM CD 120 MG CAPSULE PO SCH ×2 (09:57→21:02)
[2016-09-17] MEDS: CILOSTAZOL 50 MG TABLET PO SCH ×2 (09:57→21:01)
[2016-09-17] MEDS: amLODIPine 5 MG TABLET PO SCH (09:57)
[2016-09-17] MEDS: ASPIRIN CHEW 81 MG TABLET PO SCH (09:57)
[2016-09-17] MEDS: PANTOPRAZOLE 40 MG TABLET PO SCH (09:57)
[2016-09-17] MEDS ORDERED: POTASSIUM CHLORIDE RIDER 10 MEQ in PREMIX 1 EACH IV PRN (10:40)
[2016-09-17] MEDS ORDERED: MAGNESIUM SULF RIDER 2 GM in PREMIX 1 EACH IV PRN (10:40)
--- NOTE | 2016-09-17 10:41 | Event Note ---
After reevaluating, given Mr. Morfin has exertional chest discomfort, elevated troponin, and known CAD I suspect his CAD is probably contributed to her symptoms. I have recommended right radial heart catheterization with lower extremity angiography. He had significant RCA disease at the time of his last heart catheterization April [address] Schwartz. I discussed with the patient the risks and benefits of heart catheterization including but not limited to: , stroke, heart attack, vascular damage, reaction to medicine or dye, bleeding requiring blood transfusion, failure of the procedure, and the possible need for planned or emergency surgery. I have answered all the patient's questions regarding the procedure, and the patient is agreeable to proceed.
--- NOTE | 2016-09-17 11:26 | Hospitalist Progress Note ---
Assessment and Plan (1) Elevated troponin Status: Acute Assessment and plan: Patient has a high risk for ACS.He is currently having a chest tightness.Cardiology recommends a right radial heart catheterization with lower extremity angiography and patient has agreed to this.Echo showed hyperdynamic LV systolic function with an EF-70% with diastolic dysfunction Plan continue current care, follow cardiology's recommendations Current Visit: Yes (2) COPD exacerbation Status: Resolved Assessment and plan: continue with duonebs, levaquin, solumedrol and oxygen . Current Visit: No (3) History of pulmonary embolus (PE) Status: Acute Assessment and plan: Chest CT shows no evidence of PE Current Visit: Yes (4) Type 2 diabetes mellitus Status: Acute Assessment and plan: Poorly controlled. -will increase Lantus to 15units qhs, follow response - HbA1c level-8.1 Current Visit: No (5) History of cardiac arrest Status: Acute Assessment and plan: in the past, will follow Cardiology consult. continue with Telemetry Current Visit: Yes (6) Hypokalemia Status: Acute Assessment and plan: will continue to replete, and also replete magnesium. BMP in am Current Visit: Yes (7) Hypomagnesemia Status: Acute Assessment and plan: will continue to replete. BMP in am Current Visit: Yes (8) Leg pain, bilateral Status: Acute Assessment and plan: patient has a poor circulation in his feet. Will continue his home meds and consider a vascular consult once his cardiac status has been sorted out. Current Visit: No (9) Leg ulcer Status: Acute Assessment and plan: bilaterally due to severe PVD continue wound care, follow angiogram Current Visit: Yes Hospitalist: Subjective Interval history: Patient seen sitting up on his bed. he states a history of chest tightness but no SOB. Cardiology recommends a right radial heart catheterization with lower extremity angiography and patient has agreed to this. Exam - Constitutional Vitals: Period Temp Pulse Resp BP Sys/Gilbert Pulse Ox Last 24 Hr 98.2 F-99.5 F 89-108 16-20 115-127/53-69 91-100 General appearance: no acute distress - Head Head exam: Present: normal inspection - Respiratory Respiratory exam: Present: clear to auscultation bilaterally - Cardiovascular Cardiovascular exam: Present: regular rate and rhythm - GI/Abdominal GI/Abdominal exam: Present: normal bowel sounds - Extremities Exam Extremities exam: Present: other (both legs in boots-has multiple ulcers) Results - Labs CBC & BMP: 09/17/16 05:17 09/17/16 05:17 Lab Results: I have reviewed the past 24 hour labs
[2016-09-17] MEDS ORDERED: INSULIN GLARGINE 100 UNIT/ML SUBCUT SCH (11:31)
[2016-09-17] MEDS: SODIUM CHLORIDE 0.45% 1,000 ML IV SCH (12:20)
[2016-09-17] MEDS ORDERED: DIAZEPAM 5 MG TABLET PO ONE (13:00)
[2016-09-17] MEDS ORDERED: diphenhydrAMINE CAP 25 MG CAPSULE PO ONE (13:00)
[2016-09-17] MEDS ORDERED: NITROGLYCERIN DRIP 50 MG/250 ML BOTTLE IV ONE (14:19)
[2016-09-17] MEDS ORDERED: LIDOCAINE 1% 20 ML VIAL ONE (14:19)
[2016-09-17] MEDS ORDERED: VERAPAMIL 5 MG/2 ML VIAL ONE (14:20)
[2016-09-17] MEDS ORDERED: HYDROmorphone 2 MG/1 ML VIAL ONE (14:25)
[2016-09-17] MEDS ORDERED: MIDAZOLAM 2 MG/2 ML VIAL ONE (14:25)
[2016-09-17] MEDS ORDERED: ADENOSINE 90 MG/30 ML VIAL IV ONE (14:59)
[2016-09-17] MEDS ORDERED: NITROGLYCERIN SL 0.4 MG TABLET SL PRN (15:28)
[2016-09-17] MEDS ORDERED: HYDROmorphone 2 MG/1 ML VIAL IV PRN (15:28)
--- NOTE | 2016-09-17 15:51 | Cardiac Catheterization ---
Date of Procedure:: 09/17/16 Post-op diagnosis: same Procedure: Procedure performed: 1. Coronary angiography 2. WaveWire evaluation of RCA disease 3. Abdominal aortogram Brief clinical summary: Mr. Morfin is a 76-year-old patient Dr. Schwartz'shikha with known CAD status post large pulmonary embolism and arrest April 2016 treated with catheter directed thrombolysis. He presents with increasing dyspnea on exertion and is noted to have some chest discomfort with lifting. He had mild troponin elevation to about 0.2, was noted to have some RCA disease in April. He also has had slow healing foot ulcers and bad lower extremely claudication with intermittent rest pain. I noted his ABIs were the 0.4 0.5 range early April 2016. Description of procedure: After obtaining informed consent the patient transferred to the catheterization lab, and the right wrist was prepped and draped in the usual sterile fashion. Next a short 6 Austrian sheath was placed in the right radial artery using the Seldinger technique after the patient received IV sedation, and local anesthetic. I then injected a vasodilator cocktail into the sheath. We gave her 0.5 mg per kilogram of intravenous Lovenox prior to the procedure. Next a 5 Austrian TIG catheter was advanced and engaged to the left coronary artery after which angiogram was performed in multiple views. This was then pulled back and manipulated to engage the right coronary artery where angiograms were taken multiple views. Next I advanced a WaveWire and calibrated for crossing the in-stent restenosis. Adenosine infusion was performed and the patient had nonsignificant FFR of 0.91. Next the catheter was pulled back and the wire was directed down the descending aorta. I then advanced the catheter to the descending aorta and remove the wire. I advanced a exchange length wire and changed out for a pigtail which was advanced to the distal aorta. Abdominal aortogram was performed with runoff. This was then removed over wire. Hemostasis was obtained with a TR band, using "patent hemostasis" technique. The patient was transferred from the catheterization lab in good condition. Coronary angiography: Left main coronary arteries normal developed and free disease. Left anterior descending artery has diffuse disease with widely patent mid LAD stent with diffuse mild 30% proximal mid LAD disease. There appears to be one reasonably long high diagonal branch. Circumflex vessels approximately average caliber. Gives off a slightly thinner than average ramus branch and high OM1 that is approximately average caliber. There is a somewhat larger bifurcating OM 2 branch which has 70% proximal stenosis. The right coronary artery is the dominant vessel is of average caliber. There is intermediate 60% proximal in-stent restenosis, as well as high distal 99% disease and distal occlusion prior to the takeoff the PDA which fills with posterolateral from left to right collaterals. Abdominal aortogram with runoff: The distal aorta is normal developed with moderate irregularities. The iliac systems have only mild disease of an occlusion of the ostium of the left internal iliac. The left system has a proximal SFA occlusion with reconstitution distally followed by a popliteal occlusion. Runoff is sluggish through a reconstituted posterior tibial vessel. The right lower extremity has diffuse severe 90-95% disease in the mid to distal SFA with three-vessel proximal occlusions below the knee with best runoff through the posterior tibial and peroneal branches with some sluggish distal reconstitution of the anterior tibial. Impression: 1. Right dominant system 2. Coronary artery disease as described above including but not limited to: A. Widely patent mid LAD stent with diffuse mild disease B. 70% proximal OM 2 stenosis just prior to the bifurcation of the vessel C. Intermediate mid RCA in-stent restenosis (nonsignificant by WaveWire evaluation with FFR 0.91); discrete 95% distal RCA stenosis is noted prior to and occlusion before the takeoff of the PDA and posterior laterals which filled by [id number] collaterals. 3. Severe bilateral PAD as described above including but not limited to: A. Right lower extremity: 1) diffuse 90-95% mid to distal SFA disease 2) three-vessel proximal occlusions below the trifurcation with best runoff through the reconstituted posterior tibial and peroneal B. Left lower extremity: 1) very proximal left SFA occlusion with reconstitution at Mykel's canal 2) popliteal occlusion in the P3 segment, with best runoff slowly through reconstituted posterior tibial and peroneal arteries Recommendation discussion: All of Mr. Morfin has some angina that seems to be stable, and his ejection fraction is normal on echocardiogram. I would continue medical therapy for his CAD and follow with Dr. Schwartz who is his primary apiarist. His PAD is quite severe, and could be addressed percutaneously if needed. His wounds are followed by Dr. Beckett, and he will follow-up with Dr. Schwartz after discharge. For now will continue high intensity statin, antiplatelet therapy with recommendation for walking as able. Anesthesia: minimal conscious sedation Surgeon / Physician: Kian Stanton Wood Boat Builder Supervisor: other Estimated blood loss: minimal Specimens: none sent Condition: stable Disposition: floor - Medications / Follow-up
[2016-09-17] MEDS: clonazePAM 0.5 MG TABLET PO SCH (21:02)
[2016-09-17] MEDS: LEVOFLOXACIN INJ 750 MG in PREMIX 1 EACH IV SCH (22:08)
[2016-09-18] MEDS: ALBUTEROL/IPRATROPIUM 3 ML NEB RESP TX SCH ×4 (00:58→20:35)
[2016-09-18] MEDS: methylPREDNISolone SOD SUC 40 MG/1 ML VIAL IV SCH (04:18)
[2016-09-18] MEDS: SODIUM CHLORIDE 0.45% 1,000 ML IV SCH (06:23)
[2016-09-18 07:13] LABS: Hematocrit 29.3 VOL% (42.0-52.0); Hemoglobin 9.3 GM/DL (14.0-18.0); Immature Granulocytes % 1.3 %; Immature Granulocytes Absolute 0.13 #; Lymphocytes # 0.6 10*3/uL (1.4-4.0); Lymphocytes % 5.5 % (21.2-54.2); Mean Corpuscular HGB Conc 31.7 GM/DL (32-36); Mean Corpuscular Hemoglobin 26 PG (27-34); Mean Corpuscular Volume 82.3 FL (87-102); Mean Platelet Volume 10.5 FL (9.6-12.0); Monocytes # 0.3 10*3/uL (0.11-0.8); Monocytes % 2.7 % (1.7-12.7); Neutrophils # 9.3 10*3/uL (1.4-7.4); Neutrophils % 90.5 % (38.7-73.9); Platelet Count 262 T/CUMM (130-400); Red Blood Count 3.56 MC/CUMM (3.8-5.5); Red Cell Distribution Width 13.3 % (9.3-17.3); White Blood Count 10.3 T/CUMM (4-12)
[2016-09-18 07:40] LABS: Calcium 8.8 MG/DL (8.5-10.1); Calcium 8.9 MG/DL (8.5-10.1); Magnesium 2.6 MG/DL (1.8-2.4); Osmolality,Calculated 284.1 MOS/KG (273-304); Potassium 4.1 MMOL/L (3.5-5.1)
[2016-09-18] MEDS: METOPROLOL SUCCINATE XL 25 MG TABLET PO SCH ×2 (09:10→20:47)
[2016-09-18] MEDS: ASPIRIN CHEW 81 MG TABLET PO SCH (09:10)
[2016-09-18] MEDS: PENTOXIFYLLINE 400 MG TABLET PO SCH ×3 (09:11→17:45)
[2016-09-18] MEDS: DILTIAZEM CD 120 MG CAPSULE PO SCH ×2 (09:11→20:48)
[2016-09-18] MEDS: ENOXAPARIN 30 MG/0.3 ML SYRINGE SUBCUT SCH (09:11)
[2016-09-18] MEDS: predniSONE 20 MG TABLET PO SCH (09:11)
[2016-09-18] MEDS: ROSUVASTATIN 20 MG TABLET PO SCH (09:11)
[2016-09-18] MEDS: PANTOPRAZOLE 40 MG TABLET PO SCH (09:11)
[2016-09-18] MEDS: CILOSTAZOL 50 MG TABLET PO SCH ×2 (09:11→20:47)
[2016-09-18] MEDS: BUDESONIDE/FORMOTEROL 160-4.5 INHALER 6 GM INH SCH ×2 (09:12→20:46)
--- NOTE | 2016-09-18 09:40 | Cardiology Progress Note ---
Assessment and Plan (1) Acute exacerbation of chronic obstructive pulmonary disease (COPD) Status: Acute Assessment and plan: INITIAL CONSULT SEPTEMBER 16, 2016: ASSESSMENT/PLAN: 1. 76-year-old BM remote smoker with multiple medical problems including hypertension, COPD, CAD, status post prolonged hospitalization April 2016 with bilateral submassive PE and cardiac arrest (eventually received IVC filter due to GI bleeding) with chronic dyspnea on exertion orthopnea who now presents with some shortness of breath at rest and worsening in his usual dyspnea on exertion, possible COPD exacerbation. 2. Trivial troponin elevation to 0.1 with chronic right bundle branch block 3. Echocardiogram today shows ejection fraction of 70% with mild LVH; he could have some degree of diastolic heart failure. 4. PAD with history of foot wounds, and claudication in ABIs of 0.5 0.4 noted last year on the right and left side respectively 5. Change metoprolol to Toprol 25 mg twice daily 6. Add Crestor 20 mg daily given his CAD and PAD September 18 update: 1. Mr. Morfin had stable CAD with distal RCA occlusion (fills by left right collaterals) at catheterization yesterdayrecommend continued medical therapy 2. Given his severe PAD and slow healing foot wounds and possible rest pain I performed lower extremity angiography which showed occluded proximal left SFA as well as occluded left popliteal, as well as critical right SFA disease and three-vessel proximal occlusions at the trifurcation on the right. 3. Continue Pletal and high intensity statin (started this admission, with LDL 111), as well as baby aspirin 4. COPD exacerbation is probably slowly improving but still has some wheezing 5. Hyperdynamic LV function noted with EF 70% and probably some diastolic dysfunction; diltiazem is reasonable, I will discontinue amlodipine so he will not be on 2 calcium channel blockers 6. Right radial access site looks good 7. Percutaneous intervention could be considered for his PAD; he is followed by Dr. Marlon Beckett for wound care, will follow with Dr. Schwartz his primary allergy nurse after discharge Current Visit: Yes (2) History of cardiac arrest Status: Acute Current Visit: Yes (3) History of pulmonary embolus (PE) Status: Acute Current Visit: Yes (4) Hypokalemia Status: Acute Current Visit: Yes (5) Hypomagnesemia Status: Acute Current Visit: Yes (6) Acute on chronic renal failure Status: Acute Current Visit: No (7) Anemia Status: Acute Current Visit: No Cardiology - PN: Subj Interval history: Mr. Morfin mainly complains of his leg and feet pain that has been chronic. The gave him some difficulty sleeping. He is sitting up eating his breakfast. He says they hurt a little worse when he hangs him over the edge of the bed. He is not having any chest discomfort or shortness of breath at rest. He has not had any bleeding problems. He does not have any complaints it is right radial access site. Exam (Progress Note) - Constitutional Vitals: Period Temp Pulse Resp BP Sys/Gilbert Pulse Ox Last 24 Hr 97.5 F-99.7 F 81-112 16-22 112-144/52-77 10-100 General appearance: normal weight, no acute distress - Head Head exam: Present: normal inspection, normocephalic, atraumatic - Neck Neck exam: Present: normal inspection - Respiratory Respiratory exam: Present: rhonchi, wheezes - Cardiovascular Cardiovascular exam: Present: regular rate and rhythm. Absent: diastolic murmur , rubs - GI/Abdominal GI/Abdominal exam: Present: soft. Absent: tenderness - Extremities Exam Extremities exam: Present: edema (Trace edema with absent pedal pulses) - Neurological Exam Neurological exam: Present: alert, oriented X3, other (Resting tremor noted) Result/EKG - Labs CBC & BMP: 09/18/16 05:26 09/18/16 05:26 Labs: Laboratory Results - last 24 hr 09/17/16 09/18/16 09/18/16 19:53 05:26 05:26 WBC 10.3 RBC 3.56 L Hgb 9.3 L Hct 29.3 L MCV 82.3 L MCH 26 L MCHC 31.7 L RDW 13.3 Plt Count 262 MPV 10.5 Neut % (Auto) 90.5 H Lymph % (Auto) 5.5 L [place] % (Auto) 2.7 Eos % (Auto) 0.0 Baso % (Auto) 0.0 Neut # (Auto) 9.3 H Lymph # (Auto) 0.6 L [place] # (Auto) 0.3 Eos # (Auto) 0.0 Baso # (Auto) 0.0 Immature Gran % 1.3 Nucleated RBC % 0.0 Immature Gran # 0.13 Nucleated RBCs # 0.00 Sodium 136 Potassium 4.1 Chloride 94 L Carbon Dioxide 34 H Anion Gap 12.1 BUN 29 H Creatinine 1.80 H GFR Calculation 40 BUN/Creatinine Ratio 16.00 Glucose 271 H POC Glucose 262 H Calculated Osmolality 287.0 Calcium 8.8 Magnesium 09/18/16 09/18/16 05:26 07:26 WBC RBC Hgb Hct MCV MCH MCHC RDW Plt Count MPV Neut % (Auto) Lymph % (Auto) [place] % (Auto) Eos % (Auto) Baso % (Auto) Neut # (Auto) Lymph # (Auto) [place] # (Auto) Eos # (Auto) Baso # (Auto) Immature Gran % Nucleated RBC % Immature Gran # Nucleated RBCs # Sodium 135 L Potassium 4.1 Chloride 93 L Carbon Dioxide 35 H Anion Gap 11.1 BUN 29 H Creatinine 1.80 H GFR Calculation 40 BUN/Creatinine Ratio 16.00 Glucose 269 H POC Glucose 309 H Calculated Osmolality 284.1 Calcium 8.9 Magnesium 2.6 H
--- NOTE | 2016-09-18 11:47 | Hospitalist Progress Note ---
Assessment and Plan (1) Elevated troponin Status: Acute Assessment and plan: Patient has CAD and severe bilateral PAD in the LE. He had a catheterization with lower extremity angiography yesterday. He is currently chest pain free.Echo showed hyperdynamic LV systolic function with an EF-70% with diastolic dysfunction Plan continue medical management, follow cardiology's recommendations Current Visit: Yes (2) COPD exacerbation Status: Resolved Assessment and plan: continue with duonebs, levaquin, l and oxygen .Will switch IV steroids to po Current Visit: No (3) History of pulmonary embolus (PE) Status: Acute Assessment and plan: Chest CT shows no evidence of PE Current Visit: Yes (4) Type 2 diabetes mellitus Status: Resolved Assessment and plan: Poorly controlled. -will increase Lantus to 20units qhs, follow response - HbA1c level-8.1 -We are de-escalating the steroids Current Visit: No (5) History of cardiac arrest Status: Acute Assessment and plan: in the past, will follow Cardiology consult. continue with Telemetry Current Visit: Yes (6) Hypokalemia Status: Acute Assessment and plan: repleted Current Visit: Yes (7) Hypomagnesemia Status: Acute Assessment and plan: repleted. Current Visit: Yes (8) Leg pain, bilateral Status: Acute Assessment and plan: patient has a poor circulation in his feet. Angiography showed bilateral severe PAD Will continue his home meds and consult vascular . Current Visit: No (9) Leg ulcer Status: Acute Assessment and plan: bilaterally due to severe PAD continue wound care, vascular surgery to see Current Visit: Yes Hospitalist: Subjective Interval history: Patient was walking around his room this am. He gets breathless on minimal exertion.He had a cardiac cath yesterday which showed CAD and severe bilateral PAD.Today he denies chest pain and tightness. Exam - Constitutional Vitals: Period Temp Pulse Resp BP Sys/Gilbert Pulse Ox Last 24 Hr 97.7 F-99.7 F 81-112 16-22 112-144/52-77 10-100 General appearance: no acute distress - Head Head exam: Present: normal inspection - Respiratory Respiratory exam: Present: clear to auscultation bilaterally - Cardiovascular Cardiovascular exam: Present: regular rate and rhythm - GI/Abdominal GI/Abdominal exam: Present: normal bowel sounds - Extremities Exam Extremities exam: Present: normal inspection Results - Labs CBC & BMP: 09/18/16 05:26 09/18/16 05:26 Lab Results: I have reviewed the past 24 hour labs
[2016-09-18] MEDS ORDERED: DEXTROSE 50% 25 GM/50 ML VIAL IV PRN (14:46)
[2016-09-18] MEDS ORDERED: GLUCAGON 1 MG VIAL IM PRN (14:46)
[2016-09-18] MEDS: COLLAGENASE OINT 30 GM TUBE TOP SCH (16:45)
[2016-09-18] MEDS: INSULIN REGULAR 100 UNIT/ML SUBCUT SCH ×2 (17:45→19:59)
[2016-09-18] MEDS: INSULIN GLARGINE 100 UNIT/ML SUBCUT SCH (20:48)
[2016-09-18] MEDS: clonazePAM 0.5 MG TABLET PO SCH (20:48)
[2016-09-18] MEDS: LEVOFLOXACIN INJ 750 MG in PREMIX 1 EACH IV SCH (22:59)
[2016-09-19] MEDS: ALBUTEROL/IPRATROPIUM 3 ML NEB RESP TX SCH ×4 (01:07→19:33)
[2016-09-19 05:39] LABS: Calcium 8.9 MG/DL (8.5-10.1); Magnesium 2.4 MG/DL (1.8-2.4); Potassium 3.6 MMOL/L (3.5-5.1)
[2016-09-19] MEDS: INSULIN REGULAR 100 UNIT/ML SUBCUT SCH ×4 (07:57→20:56)
[2016-09-19] MEDS: ASPIRIN CHEW 81 MG TABLET PO SCH (08:47)
[2016-09-19] MEDS: PANTOPRAZOLE 40 MG TABLET PO SCH (08:47)
[2016-09-19] MEDS: PENTOXIFYLLINE 400 MG TABLET PO SCH ×3 (08:47→17:17)
[2016-09-19] MEDS: ROSUVASTATIN 20 MG TABLET PO SCH (08:47)
[2016-09-19] MEDS: predniSONE 20 MG TABLET PO SCH (08:47)
[2016-09-19] MEDS: ENOXAPARIN 30 MG/0.3 ML SYRINGE SUBCUT SCH (08:47)
[2016-09-19] MEDS: CILOSTAZOL 50 MG TABLET PO SCH ×2 (08:47→20:55)
[2016-09-19] MEDS: DILTIAZEM CD 120 MG CAPSULE PO SCH ×2 (08:47→20:55)
[2016-09-19] MEDS: METOPROLOL SUCCINATE XL 25 MG TABLET PO SCH (08:47)
[2016-09-19] MEDS: COLLAGENASE OINT 30 GM TUBE TOP SCH (08:50)
[2016-09-19] MEDS: BUDESONIDE/FORMOTEROL 160-4.5 INHALER 6 GM INH SCH ×2 (08:50→22:17)
--- NOTE | 2016-09-19 10:04 | Hospitalist Progress Note ---
Assessment and Plan (1) Elevated troponin Status: Acute Assessment and plan: Patient has CAD and severe bilateral PAD in the LE. He had a catheterization with lower extremity angiography yesterday. He is currently chest pain free.Echo showed hyperdynamic LV systolic function with an EF-70% with diastolic dysfunction Plan continue medical management, follow cardiology's recommendations Current Visit: Yes (2) COPD exacerbation Status: Resolved Assessment and plan: continue with duonebs, levaquin, po steroids and oxygen . Current Visit: No (3) History of pulmonary embolus (PE) Status: Acute Assessment and plan: Chest CT shows no evidence of PE Current Visit: Yes (4) Type 2 diabetes mellitus Status: Resolved Assessment and plan: better controlled. -continue current regime - HbA1c level-8.1 -We are de-escalating the steroids Current Visit: No (5) History of cardiac arrest Status: Acute Assessment and plan: in the past, will follow Cardiology consult. continue with Telemetry Current Visit: Yes (6) Hypokalemia Status: Acute Assessment and plan: repleted Current Visit: Yes (7) Hypomagnesemia Status: Acute Assessment and plan: repleted. Current Visit: Yes (8) Leg pain, bilateral Status: Acute Assessment and plan: patient has a poor circulation in his feet. Angiography showed bilateral severe PAD Will continue his home meds and consult vascular . Current Visit: No (9) Leg ulcer Status: Acute Assessment and plan: bilaterally due to severe PAD continue wound care, vascular surgery to see Current Visit: Yes (10) Acute renal failure Status: Acute Assessment and plan: avoid Nephrotoxics, continue to monitor bmp. Current Visit: Yes (11) Hypercholesteremia Status: Acute Assessment and plan: continue with statins Current Visit: Yes Hospitalist: Subjective Interval history: Patient seen this am, he feels pretty good. We are awaiting vascular to see him. Exam - Constitutional Vitals: Period Temp Pulse Resp BP Sys/Gilbert Pulse Ox Last 24 Hr 97.5 F-99.1 F 96-108 16-25 102-132/49-56 92-100 General appearance: no acute distress - Head Head exam: Present: normal inspection - Respiratory Respiratory exam: Present: clear to auscultation bilaterally - Cardiovascular Cardiovascular exam: Present: regular rate and rhythm - GI/Abdominal GI/Abdominal exam: Present: normal bowel sounds - Extremities Exam Extremities exam: Present: other (multiple leg ulcers) Results - Labs CBC & BMP: 09/18/16 05:26 09/19/16 05:06 Lab Results: I have reviewed the past 24 hour labs
--- NOTE | 2016-09-19 11:26 | Cardiology Progress Note ---
Assessment and Plan (1) Acute exacerbation of chronic obstructive pulmonary disease (COPD) Status: Acute Assessment and plan: INITIAL CONSULT SEPTEMBER 16, 2016: ASSESSMENT/PLAN: 1. 76-year-old BM remote smoker with multiple medical problems including hypertension, COPD, CAD, status post prolonged hospitalization April 2016 with bilateral submassive PE and cardiac arrest (eventually received IVC filter due to GI bleeding) with chronic dyspnea on exertion orthopnea who now presents with some shortness of breath at rest and worsening in his usual dyspnea on exertion, possible COPD exacerbation. 2. Trivial troponin elevation to 0.1 with chronic right bundle branch block 3. Echocardiogram today shows ejection fraction of 70% with mild LVH; he could have some degree of diastolic heart failure. 4. PAD with history of foot wounds, and claudication in ABIs of 0.5 0.4 noted last year on the right and left side respectively 5. Change metoprolol to Toprol 25 mg twice daily 6. Add Crestor 20 mg daily given his CAD and PAD September 18 update: 1. Mr. Morfin had stable CAD with distal RCA occlusion (fills by left right collaterals) at catheterization yesterdayrecommend continued medical therapy 2. Given his severe PAD and slow healing foot wounds and possible rest pain I performed lower extremity angiography which showed occluded proximal left SFA as well as occluded left popliteal, as well as critical right SFA disease and three-vessel proximal occlusions at the trifurcation on the right. 3. Continue Pletal and high intensity statin (started this admission, with LDL 111), as well as baby aspirin 4. COPD exacerbation is probably slowly improving but still has some wheezing 5. Hyperdynamic LV function noted with EF 70% and probably some diastolic dysfunction; diltiazem is reasonable, I will discontinue amlodipine so he will not be on 2 calcium channel blockers 6. Right radial access site looks good 7. Percutaneous intervention could be considered for his PAD; he is followed by Dr. Marlon Beckett for wound care, will follow with Dr. Schwartz his primary soup person after discharge September 19 update: 1. Mr. Morfin's COPD seems to be improving and responding to bronchodilator as he has significant less shortness of breath today 2. His hyperdynamic/normal ejection fraction is encouraging with EF 70% 3. Creatinine is stable at 1.8; would continue gentle hydration 4. Given his severe bilateral PAD and probable rest pain, I discussed with risks and benefits of percutaneous intervention. I recommend he discuss with his , but he is wishing to proceed to try to get some relief. Given his anatomy and recent heart catheterization, I would recommend we accessed the right lower extremity from the left groin, with plan for atherectomy and angioplasty of his critical right SFA disease and treatment at least 1 of his outflow vessels. Current Visit: Yes (2) History of cardiac arrest Status: Acute Current Visit: Yes (3) History of pulmonary embolus (PE) Status: Acute Current Visit: Yes (4) Hypokalemia Status: Acute Current Visit: Yes (5) Hypomagnesemia Status: Acute Current Visit: Yes (6) Acute on chronic renal failure Status: Acute Current Visit: No (7) Anemia Status: Acute Current Visit: No Cardiology - PN: Subj Interval history: Mr. Morfin is much improved, he is seeming to respond to bronchodilator. This may be the cause of his mild tachycardia. He still complains of rest pain in his legs and feet. He is not having any chest discomfort vomiting or diaphoresis. He has not had any bleeding problems. Exam (Progress Note) - Constitutional Vitals: Period Temp Pulse Resp BP Sys/Gilbert Pulse Ox Last 24 Hr 97.5 F-99.1 F 96-108 16-25 102-132/49-62 92-100 General appearance: normal weight, mild distress - Head Head exam: Present: normal inspection, normocephalic, atraumatic - Respiratory Respiratory exam: Present: decreased breath sounds, prolonged expiratory phase, rhonchi, other (Increased expiratory phase). Absent: wheezes - Cardiovascular Cardiovascular exam: Present: tachycardia. Absent: diastolic murmur, rubs - GI/Abdominal GI/Abdominal exam: Present: soft. Absent: tenderness - Extremities Exam Extremities exam: Present: edema (Trace to 1+ lower extremity edema) Result/EKG - Labs CBC & BMP: 09/18/16 05:26 09/19/16 05:06 Labs: Laboratory Results - last 24 hr 09/18/16 09/18/16 09/18/16 11:19 17:16 19:46 Sodium Potassium Chloride Carbon Dioxide Anion Gap BUN Creatinine GFR Calculation BUN/Creatinine Ratio Glucose POC Glucose 413 H 403 H 493 H Calculated Osmolality Calcium Magnesium 05/13/17 05/14/17 05/14/17 22:56 05:06 06:54 Sodium 136 Potassium 3.6 Chloride 94 L Carbon Dioxide 33 H Anion Gap 12.6 BUN 32 H Creatinine 1.80 H GFR Calculation 40 BUN/Creatinine Ratio 17.00 Glucose 110 H POC Glucose 225 H 123 H Calculated Osmolality 279.0 Calcium 8.9 Magnesium 2.4
[2016-09-19] MEDS ORDERED: MAGNESIUM SULF RIDER 2 GM in PREMIX 1 EACH IV PRN (11:27)
[2016-09-19] MEDS ORDERED: POTASSIUM CHLORIDE RIDER 10 MEQ in PREMIX 1 EACH IV PRN (11:27)
[2016-09-19] MEDS: SODIUM CHLORIDE 0.45% 1,000 ML IV SCH (17:17)
[2016-09-19] MEDS: ZALEPLON 5 MG CAPSULE PO PRN ×2 (20:55→22:16)
[2016-09-19] MEDS: INSULIN GLARGINE 100 UNIT/ML SUBCUT SCH (20:56)
[2016-09-19] MEDS: clonazePAM 0.5 MG TABLET PO SCH (20:57)
[2016-09-19] MEDS: MAGNESIUM HYDROXIDE SUSP 30 ML UDCUP PO PRN (20:57)
[2016-09-19] MEDS: LEVOFLOXACIN INJ 750 MG in PREMIX 1 EACH IV SCH (22:18)
[2016-09-20] MEDS: ALBUTEROL/IPRATROPIUM 3 ML NEB RESP TX SCH ×4 (00:22→18:56)
[2016-09-20 05:56] LABS: Basophils % 0.1 % (0.0-0.8); Hematocrit 28.3 VOL% (42.0-52.0); Hemoglobin 9.1 GM/DL (14.0-18.0); Immature Granulocytes % 1.1 %; Lymphocytes # 0.9 10*3/uL (1.4-4.0); Lymphocytes % 9.9 % (21.2-54.2); Mean Corpuscular HGB Conc 32.2 GM/DL (32-36); Mean Corpuscular Hemoglobin 26 PG (27-34); Mean Platelet Volume 10.7 FL (9.6-12.0); Monocytes % 11.4 % (1.7-12.7); NRBC # 0.02 10*3/uL; Neutrophils # 6.9 10*3/uL (1.4-7.4); Neutrophils % 77.5 % (38.7-73.9); Platelet Count 244 T/CUMM (130-400); Red Blood Count 3.45 MC/CUMM (3.8-5.5); Red Cell Distribution Width 13.3 % (9.3-17.3); White Blood Count 8.9 T/CUMM (4-12)
[2016-09-20 06:25] LABS: Calcium 8.9 MG/DL (8.5-10.1); Magnesium 2.8 MG/DL (1.8-2.4); Osmolality,Calculated 284.5 MOS/KG (273-304); Potassium 4.1 MMOL/L (3.5-5.1)
[2016-09-20 06:26] LABS: Osmolality,Calculated 282.7 MOS/KG (273-304); Potassium 3.9 MMOL/L (3.5-5.1)
--- NOTE | 2016-09-20 08:33 | Cardiology Progress Note ---
Cardiology - PN: Subj Interval history: Cardiology note 76-year-old man admitted with decompensated COPD and atypical chest pain. No fever. Nonproductive cough. Decreased breath sounds scattered rhonchi Regular rhythm no murmur Abdomen soft benign No leg edema. All distal pulses decreased Lab data today White count 8.9 hemoglobin 9.1 hematocrit 28.3 Sodium 138 potassium 3.9 chloride 96 CO2 25 BUN 20 creatinine 1.8 Impression Decompensated COPD Hypertension Smoker Status post bilateral pulmonary emboli April 2016 with subsequent IVC filter for bleeding CAD -recent cath showed occluded distal right coronary with [id number] collaterals, patent mid LAD stent site and moderate circumflex disease Ejection fraction 70% and LVH by recent echo Hyperlipidemia Severe PVD with occluded left FSA and left popliteal and severe disease in the right SFA with occluded trifurcation Plan Pulmonary toilet IV antibiotics nebs prednisone Dr. Stanton to do right SFA intervention Exam (Progress Note) - Constitutional Vitals: Period Temp Pulse Resp BP Sys/Gilbert Pulse Ox Last 24 Hr 97.6 F-99.3 F 101-117 12-20 117-126/50-85 93-99 Result/EKG - Labs CBC & BMP: 09/20/16 04:35 09/20/16 04:35 Labs: Laboratory Results - last 24 hr 09/19/16 09/19/16 09/19/16 11:27 15:35 20:48 WBC RBC Hgb Hct MCV MCH MCHC RDW Plt Count MPV Neut % (Auto) Lymph % (Auto) [place] % (Auto) Eos % (Auto) Baso % (Auto) Neut # (Auto) Lymph # (Auto) [place] # (Auto) Eos # (Auto) Baso # (Auto) Immature Gran % Nucleated RBC % Immature Gran # Nucleated RBCs # Sodium Potassium Chloride Carbon Dioxide Anion Gap BUN Creatinine GFR Calculation BUN/Creatinine Ratio Glucose POC Glucose 263 H 238 H 304 H Calculated Osmolality Calcium Magnesium 09/20/16 09/20/16 09/20/16 04:35 04:35 04:35 WBC 8.9 RBC 3.45 L Hgb 9.1 L Hct 28.3 L MCV 82.0 L MCH 26 L MCHC 32.2 RDW 13.3 Plt Count 244 MPV 10.7 Neut % (Auto) 77.5 H Lymph % (Auto) 9.[address] [place] % (Auto) 11.4 Eos % (Auto) 0.0 Baso % (Auto) 0.1 Neut # (Auto) 6.9 Lymph # (Auto) 0.[address] [place] # (Auto) 1.0 H Eos # (Auto) 0.0 Baso # (Auto) 0.0 Immature Gran % 1.1 Nucleated RBC % 0.2 Immature Gran # 0.10 Nucleated RBCs # 0.02 Sodium 139 138 Potassium 4.1 3.9 Chloride 96 L 96 L Carbon Dioxide 35 H 35 H Anion Gap 12.1 10.9 BUN 29 H 28 H Creatinine 1.80 H 1.80 H GFR Calculation 40 40 BUN/Creatinine Ratio 16.00 15.00 Glucose 138 H 140 H POC Glucose Calculated Osmolality 284.5 282.7 Calcium 8.9 9.0 Magnesium 2.8 H
[2016-09-20] MEDS: DIAZEPAM 5 MG TABLET PO ONE ×2 (09:27→09:32)
[2016-09-20] MEDS: diphenhydrAMINE CAP 25 MG CAPSULE PO ONE ×2 (09:27→09:31)
[2016-09-20] MEDS: SODIUM CHLORIDE 0.45% 1,000 ML IV SCH (09:28)
[2016-09-20] MEDS: PENTOXIFYLLINE 400 MG TABLET PO SCH ×3 (09:29→17:22)
[2016-09-20] MEDS: INSULIN REGULAR 100 UNIT/ML SUBCUT SCH ×4 (09:29→21:15)
[2016-09-20] MEDS: DILTIAZEM CD 120 MG CAPSULE PO SCH ×2 (09:29→21:14)
[2016-09-20] MEDS: METOPROLOL SUCCINATE XL 25 MG TABLET PO SCH (09:29)
[2016-09-20] MEDS: ENOXAPARIN 30 MG/0.3 ML SYRINGE SUBCUT SCH (09:29)
[2016-09-20] MEDS ORDERED: DIAZEPAM 5 MG TABLET PO ONE (09:30)
[2016-09-20] MEDS: PANTOPRAZOLE 40 MG TABLET PO SCH (09:30)
[2016-09-20] MEDS: predniSONE 20 MG TABLET PO SCH (09:30)
[2016-09-20] MEDS ORDERED: diphenhydrAMINE CAP 25 MG CAPSULE PO ONE (09:30)
[2016-09-20] MEDS: ROSUVASTATIN 20 MG TABLET PO SCH (09:30)
[2016-09-20] MEDS: BUDESONIDE/FORMOTEROL 160-4.5 INHALER 6 GM INH SCH ×2 (09:30→21:16)
[2016-09-20] MEDS: CILOSTAZOL 50 MG TABLET PO SCH ×2 (09:30→21:15)
[2016-09-20] MEDS: ASPIRIN CHEW 81 MG TABLET PO SCH (09:30)
[2016-09-20] MEDS ORDERED: LIDOCAINE 1% 20 ML VIAL ONE (10:09)
[2016-09-20] MEDS ORDERED: MIDAZOLAM 2 MG/2 ML VIAL ONE (10:14)
[2016-09-20] MEDS ORDERED: HYDROmorphone 2 MG/1 ML VIAL ONE (10:14)
[2016-09-20] MEDS ORDERED: ASPIRIN 325 MG TABLET ONE (10:27)
[2016-09-20] MEDS ORDERED: TICAGRELOR 90 MG TABLET ONE (10:27)
[2016-09-20] MEDS ORDERED: HEPARIN 5,000 UNIT/1 ML VIAL ONE ×2 (10:45→10:56)
--- NOTE | 2016-09-20 12:54 | Cardiology Operative Report ---
Date of Procedure:: 09/20/16 Post-op diagnosis: same Procedure: Procedure performed: 1. Right common femoral angiography with runoff 2. Angioplasty and stenting of mid right SFA disease with 5.5 x 60 supera stent 3. Right femoral arteriotomy closed with mixed device Brief clinical summary: Mr. Morfin is a 76-year-old with known CAD and COPD exacerbation who has had rest pain very slow healing foot ulcers. He has known bilateral severe PAD. Right common iliac angiography runoff: The right common external iliac had minimal disease less than 30%. The internal iliac is patent but has severe disease in the midportion. The profunda is patent. The SFA has tandem 90-95% lesions in the midportion. There is a 30% disease in the proximal/P1 segment of the popliteal segment. There is three-vessel proximal occlusions of the trifurcation. There is filling of the mid anterior tibial and peroneal vessel by collaterals. Description of procedure: After obtaining informed consent the patient for the catheter with the left groin was prepped and draped in sterile fashion. Next a short 6 Thai sheath placed left femoral artery using modified center technique after the patient received IV sedation with Versed. Next a URENA catheter was advanced with a angled Glidewire which I advanced down the mid SFA with only modest difficulty. Next the sheath was changed out for a 65 cm destination sheath which was advanced to the mid SFA. Subsequently I advanced the seeker with a command wire was advanced to the trifurcation of a multiple attempts to cross into the distal vessel with no success. Next I removed the seeker, and advanced a 5.0 x 60 balloon across the disease and dilated the balloon to nominal pressures. There is residual 50% stenosis at 1 spot there was moderate calcification. I advanced a 5.0 x 60 superior stent and deployed most of the stent, but could not complete the intervention, as the most distal portion of the stent was within the guide. When I retracted the guide the entire stent migrated with it proximally. I eventually advanced the sheath over the entire stent. I then retracted the apparatus, but I felt a "pop" after he was senior living out. Subsequent fluoroscopy showed the nose cone was just at the bifurcation of the aorta. Next I pulled the sheath back modestly and accessed the right common femoral using an antegrade approach. Then advanced a Glidewire down the SFA. Next the 5.0 x 60 balloon was advanced across the area of disease and was dilated again to 18-20 kaitlyn. This was then removed and a 5.5 x 60 superior stent was deployed across her disease successfully with an excellent result. The patient tolerated procedure well. The patient was given Brilinta loading dose and aspirin just before the procedure began. He was given 5000 of heparin initially and there was given additional 1000 as the ACT was subtherapeutic. This achieved therapeutic ACT, but was just over 200 near the end of the procedure. I gave 1000 units additional just prior to stent deployment. Subsequent ACT was 220. Hemostasis was obtained at the right groin access site with a mixed device with no residual bleeding. We are planning to pull via the sheath in the holding room shortly. Impression: 1. Critical tandem 90-95% mid right SFA lesions with moderate calcification 2. Three-vessel very proximal occlusions below at the trifurcation with filling of the peroneal and dorsalis pedis by collaterals. 3. Status post angioplasty in stenting of mid SFA disease with 5.5 x 60 superior a stent with excellent result Recommendation discussion: Unfortunately were unable to successfully deploy the stent from the left groin access, but were able to from the right antegrade approach. He will continue on maximal medical therapy with high intensity statin and antiplatelet therapy. Dr. Mireles is evaluating him as well. He may be a candidate for left femoropopliteal bypass. I will plan dual antiplatelet therapy for 30 days if possible. Anesthesia: minimal conscious sedation Surgeon / Physician: Kian Stanton [employer] Data Software Engineer: other Estimated blood loss: minimal Specimens: none sent Condition: stable Disposition: floor
--- NOTE | 2016-09-20 14:39 | Hospitalist Progress Note ---
Assessment and Plan (1) Elevated troponin Status: Acute Assessment and plan: Patient has CAD and severe bilateral PAD in the LE. He had a catheterization with lower extremity angiography yesterday. He is currently chest pain free.Echo showed hyperdynamic LV systolic function with an EF-70% with diastolic dysfunction Plan continue medical management, follow cardiology's recommendations Current Visit: Yes (2) COPD exacerbation Status: Resolved Assessment and plan: continue with duonebs, levaquin, po steroids and oxygen . Current Visit: No (3) History of pulmonary embolus (PE) Status: Acute Assessment and plan: Chest CT shows no evidence of PE Current Visit: Yes (4) Type 2 diabetes mellitus Status: Resolved Assessment and plan: better controlled. -continue current regime - HbA1c level-8.1 -We are de-escalating the steroids Current Visit: No (5) History of cardiac arrest Status: Acute Assessment and plan: in the past, will follow Cardiology consult. continue with Telemetry Current Visit: Yes (6) Hypokalemia Status: Acute Assessment and plan: repleted Current Visit: Yes (7) Hypomagnesemia Status: Acute Assessment and plan: repleted. Current Visit: Yes (8) Leg pain, bilateral Status: Acute Assessment and plan: patient has a poor circulation in his feet. Angiography showed bilateral severe PAD. He had a right common femoral angiography with runoff 2. Angioplasty and stenting of mid right SFA disease with 5.5 x 60 supera stent 3. Right femoral arteriotomy closed with mixed device Plan continue current care Current Visit: No (9) Leg ulcer Status: Acute Assessment and plan: bilaterally due to severe PAD continue wound care, vascular surgery to see Current Visit: Yes (10) Acute renal failure Status: Acute Assessment and plan: avoid Nephrotoxics, continue to monitor bmp. Current Visit: Yes (11) Hypercholesteremia Status: Acute Assessment and plan: continue with statins Current Visit: Yes Hospitalist: Subjective Interval history: Patient seen after having a right common femoral angiography with runoff . Angioplasty and stenting of mid right SFA disease with 5.5 x 60 supera stent and Right femoral arteriotomy closed with mixed device this am. He was drowsy but responsive. Exam - Constitutional Vitals: Period Temp Pulse Resp BP Sys/Gilbert Pulse Ox Last 24 Hr 97.6 F-99.3 F 91-117 16-20 117-134/50-85 93-100 General appearance: no acute distress - Head Head exam: Present: normal inspection - Respiratory Respiratory exam: Present: clear to auscultation bilaterally - Cardiovascular Cardiovascular exam: Present: regular rate and rhythm - GI/Abdominal GI/Abdominal exam: Present: normal bowel sounds - Extremities Exam Extremities exam: Present: other (ulcers) Results - Labs CBC & BMP: 09/20/16 04:35 09/20/16 04:35 Lab Results: I have reviewed the past 24 hour labs
--- NOTE | 2016-09-20 17:02 | Vascular Surgery Consult Note ---
History of Present Illness Chief complaint: pvd History of present illness: Mr. Morfin is a 76 year old male Mr. Arya Morfin a 76-year-old man admitted with a COPD the exacerbation but also found to have significant distal peripheral vascular occlusive disease. He recently underwent cardiac catheterization with noting superficial femoral disease bilaterally a left superficial femoral occlusion with reconstitution of the popliteal but severe tibial occlusive disease distally on the right side superficial femoral stenoses with tibial occlusive disease distally. He has undergone angioplasty and stenting of his right superficial femoral today and question is whether we should proceed with a left femoral-popliteal bypass. Spoken with Mr. Morfin this afternoon he still has some sedation related to his heart catheterization procedure today. On examination both feet are active adequately perfused he has ulcers on the dorsum of the feet bilaterally he shows evidence of chronic ischemia but not acute ischemia. He states his left leg is not hurting him acutely at this time and actually feels somewhat better as does the right. Since he has undergone access of the left common femoral artery today I would prefer not to proceed with femoral-popliteal bypassing until we have had an opportunity for this area to heal as this actually provides less likely infectious complications. I would also be interested to see what improvement he experiences with the angioplasty and stenting of the right superficial femoral artery to determine somewhat the likelihood of whether the superficial femoral bypass on the left would really provide benefit. I will speak with Mr. Morfin again tomorrow Home Medications Medication Instructions Recorded Confirmed Type Albuterol/Ipratropium Neb [Duoneb] 3 ml RESP TX RT Q6H WA 06/29/16 09/15/16 History Amlodipine Besylate 5 mg PO DAILY 06/29/16 09/15/16 History Aspirin Chew Tab 81 mg PO DAILY 06/29/16 09/15/16 History Cilostazol 100 mg PO BID 06/29/16 09/15/16 History Magnesium Hydroxide Susp [Milk of 30 ml PO Q4H PRN 06/29/16 09/15/16 History Magnesia] Metoprolol Tartrate 50 mg PO BID 06/29/16 09/15/16 History Pentoxifylline 400 mg PO TID W/MEALS 06/29/16 09/15/16 History Polyvinyl Alcohol 1.4% Oph No 1 drop BOTH EYES TID PRN 06/29/16 09/15/16 History [Artificial Tears Oph Soln] clonazePAM TAB [KlonoPIN] 0.25 mg PO BEDTIME 06/29/16 09/15/16 History raNITIdine HCl [Ranitidine HCl] 150 mg PO BID 06/29/16 09/15/16 History Furosemide Tab [Lasix Tab] 40 mg PO DAILY #30 tablet 07/15/16 09/15/16 Rx Albuterol Sulfate [Ventolin HFA] 1 puff INH Q4H 09/15/16 09/15/16 History Metformin HCl 1,000 mg PO BID 09/15/16 09/15/16 History Allergies Allergy/AdvReac Type Severity Reaction Status Date / Time No Known Allergies Allergy Verified 06/15/15 21:34 Medical,Surgical,& Family Hx - Medical History Cardio: History of: CHF, CAD, Hypertension, CA, PVD Neurology: No history of: Seizures HEENT: History of: Ear Problem, Eye Problem, Glaucoma No history of: Dental Problems Endocrine: History of: Diabetes Mellitus (NIDDM), Dyslipidemia Respiratory: History of: COPD (home oxygen), Obstructive Sleep Apnea, Pulmonary Embolism (APR 2016) Gastrointestinal: History of: GERD, Gastrointestinal Bleed, Hemorrhoids Musculoskeletal: History of: Back/Neck Problems (chronic back pain) No history of: Amputation Hematology: History of: Anemia, Clotting Problems (PULMONARY EMBOLISM APR 2016) - Surgical History Cardiac Surgeries: Sugical HX of: Cardiac Catheterization, Vascular Access Devices Patient Denies: Carotid Endarterectomy, Internal Defibrillator Neurologic Surgeries: Patient denies: Neurologic Surgery HEENT Surgeries: Patient denies: Carotid Endarterectomy Abdominal Surgeries: Surgical HX of: Abdominal Surgery (PEG PLACEMENT APR 2016) Reproductive Surgeries: Patient denies;: Genitourinary Surgery Orthopedic Surgeries: Surgical HX of;: Orthopedic Surgery (back surgery) - Family History Family History: Reports;: Family Diabetes, Family Hypertension - Social History Smoking Status: Former smoker Frequency of Alcohol Use: None Type of Drug Use: None Exam - Constitutional Vitals: Period Temp Pulse Resp BP Sys/Gilbert Pulse Ox Last 24 Hr 97.5 F-99.3 F 80-117 14-20 112-139/62-85 96-100 Results - Labs CBC & BMP: 09/20/16 04:35 09/20/16 04:35
[2016-09-20] MEDS ORDERED: TICAGRELOR 90 MG TABLET PO SCH (21:00)
[2016-09-20] MEDS: clonazePAM 0.5 MG TABLET PO SCH (21:15)
[2016-09-20] MEDS: INSULIN GLARGINE 100 UNIT/ML SUBCUT SCH (21:15)
[2016-09-20] MEDS: LEVOFLOXACIN INJ 750 MG in PREMIX 1 EACH IV SCH (23:49)
[2016-09-21] MEDS: ALBUTEROL/IPRATROPIUM 3 ML NEB RESP TX SCH ×4 (00:09→19:15)
[2016-09-21 06:06] LABS: Basophils % 0.1 % (0.0-0.8); Eosinophils % 0.4 % (0.00-10.9); Hematocrit 28.5 VOL% (42.0-52.0); Hemoglobin 8.9 GM/DL (14.0-18.0); Immature Granulocytes % 1.3 %; Immature Granulocytes Absolute 0.12 #; Lymphocytes # 1.6 10*3/uL (1.4-4.0); Lymphocytes % 17.1 % (21.2-54.2); Mean Corpuscular HGB Conc 31.2 GM/DL (32-36); Mean Corpuscular Hemoglobin 26 PG (27-34); Mean Corpuscular Volume 82.1 FL (87-102); Mean Platelet Volume 10.1 FL (9.6-12.0); Monocytes # 1.2 10*3/uL (0.11-0.8); Monocytes % 12.8 % (1.7-12.7); NRBC # 0.02 10*3/uL; Neutrophils # 6.4 10*3/uL (1.4-7.4); Neutrophils % 68.3 % (38.7-73.9); Platelet Count 248 T/CUMM (130-400); Red Blood Count 3.47 MC/CUMM (3.8-5.5); Red Cell Distribution Width 13.6 % (9.3-17.3); White Blood Count 9.4 T/CUMM (4-12)
[2016-09-21 06:41] LABS: Calcium 9.4 MG/DL (8.5-10.1); Osmolality,Calculated 273.8 MOS/KG (273-304); Potassium 4.1 MMOL/L (3.5-5.1)
[2016-09-21] MEDS ORDERED: CLOPIDOGREL 300 MG TABLET PO ONE (07:46)
--- NOTE | 2016-09-21 08:15 | Cardiology Progress Note ---
Assessment and Plan (1) Acute exacerbation of chronic obstructive pulmonary disease (COPD) Status: Acute Assessment and plan: INITIAL CONSULT SEPTEMBER 16, 2016: ASSESSMENT/PLAN: 1. 76-year-old BM remote smoker with multiple medical problems including hypertension, COPD, CAD, status post prolonged hospitalization April 2016 with bilateral submassive PE and cardiac arrest (eventually received IVC filter due to GI bleeding) with chronic dyspnea on exertion orthopnea who now presents with some shortness of breath at rest and worsening in his usual dyspnea on exertion, possible COPD exacerbation. 2. Trivial troponin elevation to 0.1 with chronic right bundle branch block 3. Echocardiogram today shows ejection fraction of 70% with mild LVH; he could have some degree of diastolic heart failure. 4. PAD with history of foot wounds, and claudication in ABIs of 0.5 0.4 noted last year on the right and left side respectively 5. Change metoprolol to Toprol 25 mg twice daily 6. Add Crestor 20 mg daily given his CAD and PAD September 18 update: 1. Mr. Morfin had stable CAD with distal RCA occlusion (fills by left right collaterals) at catheterization yesterdayrecommend continued medical therapy 2. Given his severe PAD and slow healing foot wounds and possible rest pain I performed lower extremity angiography which showed occluded proximal left SFA as well as occluded left popliteal, as well as critical right SFA disease and three-vessel proximal occlusions at the trifurcation on the right. 3. Continue Pletal and high intensity statin (started this admission, with LDL 111), as well as baby aspirin 4. COPD exacerbation is probably slowly improving but still has some wheezing 5. Hyperdynamic LV function noted with EF 70% and probably some diastolic dysfunction; diltiazem is reasonable, I will discontinue amlodipine so he will not be on 2 calcium channel blockers 6. Right radial access site looks good 7. Percutaneous intervention could be considered for his PAD; he is followed by Dr. Marlon Beckett for wound care, will follow with Dr. Schwartz his primary vessel scrapper helper after discharge September 19 update: 1. Mr. Morfin's COPD seems to be improving and responding to bronchodilator as he has significant less shortness of breath today 2. His hyperdynamic/normal ejection fraction is encouraging with EF 70% 3. Creatinine is stable at 1.8; would continue gentle hydration 4. Given his severe bilateral PAD and probable rest pain, I discussed with risks and benefits of percutaneous intervention. I recommend he discuss with his , but he is wishing to proceed to try to get some relief. Given his anatomy and recent heart catheterization, I would recommend we accessed the right lower extremity from the left groin, with plan for atherectomy and angioplasty of his critical right SFA disease and treatment at least 1 of his outflow vessels. September 20 update: 1. Mr. Morfin was much improved with regard to his COPD without shortness of breath this morning 2. Status post stenting of severe right SFA disease yesterday; I was unable to open his three-vessel proximal occlusions of the trifurcation on the right. 3. Continue high intensity statin therapy and Pletal, with baby aspirin and Plavix. 4. Dr. Mireles is evaluating for possible femoropopliteal bypass at a later time 5. Given bilateral groin bruits, and bilateral groin access yesterday we will order ultrasound 6. Renal function is actually normal this morning; discontinue IV fluid September 21 update: 1. Mr. Lira continues to improve his dyspnea but still has some wheezing 2. Still has some rest pain in his feet/legs left greater than right; wound care nurses following. Ulcers at his heels appear worse 3. Stable normal creatinine post procedure 4. Microcytic anemia noted; will need to follow Current Visit: Yes (2) History of cardiac arrest Status: Acute Current Visit: Yes (3) History of pulmonary embolus (PE) Status: Acute Current Visit: Yes (4) Hypokalemia Status: Acute Current Visit: Yes (5) Hypomagnesemia Status: Acute Current Visit: Yes (6) Acute on chronic renal failure Status: Acute Current Visit: No (7) Anemia Status: Acute Current Visit: No Cardiology - PN: Subj Interval history: Mr. Morfin is doing well this morning. He said his legs feel better than normal. As you the left is a little worse than the right. He is not had any other symptoms such as chest pain or shortness of breath. His wheezing is minimal this morning. He is eating breakfast comfortably. Exam (Progress Note) - Constitutional Vitals: Period Temp Pulse Resp BP Sys/Gilbert Pulse Ox Last 24 Hr 97.1 F-99.2 F 80-98 14-41 112-159/39-80 92-100 General appearance: normal weight, no acute distress - Head Head exam: Present: normal inspection, normocephalic, atraumatic - Eye Pupils: Absent: normal accommodation - Neck Neck exam: Present: normal inspection - Respiratory Respiratory exam: Present: wheezes. Absent: rhonchi, stridor - Cardiovascular Cardiovascular exam: Present: regular rate and rhythm. Absent: diastolic murmur , rubs - GI/Abdominal GI/Abdominal exam: Present: soft. Absent: tenderness - Extremities Exam Extremities exam: Present: other (Feet are slightly hyperpigmented and wrinkled. Bilateral groin bruits; minimal tenderness). Absent: edema - Neurological Exam Neurological exam: Present: alert, oriented X3 Result/EKG - Labs CBC & BMP: 09/22/16 04:07 09/22/16 04:07 Labs: Laboratory Results - last 24 hr 09/20/16 09/20/16 09/20/16 06:59 13:11 17:13 WBC RBC Hgb Hct MCV MCH MCHC RDW Plt Count MPV Neut % (Auto) Lymph % (Auto) [place] % (Auto) Eos % (Auto) Baso % (Auto) Neut # (Auto) Lymph # (Auto) [place] # (Auto) Eos # (Auto) Baso # (Auto) Immature Gran % Nucleated RBC % Immature Gran # Nucleated RBCs # Sodium Potassium Chloride Carbon Dioxide Anion Gap BUN Creatinine GFR Calculation BUN/Creatinine Ratio Glucose POC Glucose 149 H 236 H 161 H Calculated Osmolality Calcium 09/20/16 09/21/16 09/21/16 19:55 05:53 05:53 WBC 9.4 RBC 3.47 L Hgb 8.9 L Hct 28.5 L MCV 82.1 L MCH 26 L MCHC 31.2 L RDW 13.6 Plt Count 248 MPV 10.1 Neut % (Auto) 68.3 Lymph % (Auto) 17.1 L [place] % (Auto) 12.8 H Eos % (Auto) 0.4 Baso % (Auto) 0.1 Neut # (Auto) 6.4 Lymph # (Auto) 1.6 [place] # (Auto) 1.2 H Eos # (Auto) 0.0 Baso # (Auto) 0.0 Immature Gran % 1.3 Nucleated RBC % 0.2 Immature Gran # 0.12 Nucleated RBCs # 0.02 Sodium 137 Potassium 4.1 Chloride 99 Carbon Dioxide 32 Anion Gap 10.1 BUN 20 H Creatinine 1.30 GFR Calculation 59 BUN/Creatinine Ratio 15.00 Glucose 58 L POC Glucose 173 H Calculated Osmolality 273.8 Calcium 9.4 09/21/16 07:18 WBC RBC Hgb Hct MCV MCH MCHC RDW Plt Count MPV Neut % (Auto) Lymph % (Auto) [place] % (Auto) Eos % (Auto) Baso % (Auto) Neut # (Auto) Lymph # (Auto) [place] # (Auto) Eos # (Auto) Baso # (Auto) Immature Gran % Nucleated RBC % Immature Gran # Nucleated RBCs # Sodium Potassium Chloride Carbon Dioxide Anion Gap BUN Creatinine GFR Calculation BUN/Creatinine Ratio Glucose POC Glucose 189 H Calculated Osmolality Calcium Specialty Discharge - Follow Up or Referrals Follow up with: Kian Stanton MD [Physician] - 2 Weeks (with [facility]; [facility] CMP CBC)
[2016-09-21] MEDS: INSULIN REGULAR 100 UNIT/ML SUBCUT SCH ×4 (08:48→22:12)
[2016-09-21] MEDS: MAGNESIUM HYDROXIDE SUSP 30 ML UDCUP PO PRN (08:48)
[2016-09-21] MEDS: ASPIRIN CHEW 81 MG TABLET PO SCH (08:49)
[2016-09-21] MEDS: METOPROLOL SUCCINATE XL 25 MG TABLET PO SCH (08:49)
[2016-09-21] MEDS: DILTIAZEM CD 120 MG CAPSULE PO SCH ×2 (08:49→22:11)
[2016-09-21] MEDS: CILOSTAZOL 50 MG TABLET PO SCH ×2 (08:49→22:14)
[2016-09-21] MEDS: PANTOPRAZOLE 40 MG TABLET PO SCH (08:49)
[2016-09-21] MEDS: predniSONE 20 MG TABLET PO SCH (08:50)
[2016-09-21] MEDS: ROSUVASTATIN 20 MG TABLET PO SCH (08:51)
[2016-09-21] MEDS: ENOXAPARIN 30 MG/0.3 ML SYRINGE SUBCUT SCH (09:14)
[2016-09-21] MEDS: SODIUM CHLORIDE 0.45% 1,000 ML IV SCH ×2 (09:55→09:56)
[2016-09-21] MEDS ORDERED: SKIN HEALING OINT (AQUAPHOR) 50 GM TUBE TOP PRN (10:33)
[2016-09-21] MEDS: COLLAGENASE OINT 30 GM TUBE TOP SCH (10:58)
[2016-09-21] MEDS: BUDESONIDE/FORMOTEROL 160-4.5 INHALER 6 GM INH SCH ×2 (10:58→22:14)
--- NOTE | 2016-09-21 11:20 | Ultrasound Report ---
Exam: US arterial duplex LE Date: 09/21/2016 8:15 AM Indication: Bilateral inguinal bruit is question pseudoaneurysm Comparison: None Technical grayscale color flow analysis of the inguinal regions bilaterally. Findings: The right common femoral vein reveals the vein thrombosis present. The right common femoral artery is patent. Normal color flow is present. Small lymph node is present. The left common femoral vein is patent. The common femoral artery is occluded. No obvious pseudoaneurysm bilaterally. Impression: 1. Occlusion of the left common femoral artery 2. Right common femoral vein deep vein thrombosis. 3. No obvious pseudoaneurysm. Attempted to contact the attending physician but was unavailable. PROCEDURE INTERPRETED AT [facility] DEPARTMENT OF RADIOLOGY Final Report Signed by: Dr. Mina Pedro
--- NOTE | 2016-09-21 17:16 | Hospitalist Progress Note ---
Assessment and Plan (1) Constipation Status: Chronic Current Visit: No Qualifiers: Qualified Code(s): K59.00 - Constipation, unspecified (2) COPD exacerbation Status: Resolved Current Visit: No (3) DMII (diabetes mellitus, type 2) Status: Chronic Current Visit: No (4) Leg pain, bilateral Status: Acute Current Visit: No Hospitalist: Subjective Interval history: No acute events overnight. Denies any pain. Respiratory status appears to be at baseline. He is s/p stenting of SFA yesterday. Cardiology and vascular surgery following. Exam - Constitutional Vitals: Period Temp Pulse Resp BP Sys/Gilbert Pulse Ox Last 24 Hr 97.1 F-99.2 F 78-98 16-41 123-166/39-78 92-100 General appearance: over weight - Head Head exam: Present: normocephalic, atraumatic - Eye Eye exam: Present: EOMI Pupils: Present: DILSHAD - ENT ENT exam: Present: normal exam - Neck Neck exam: Present: normal inspection - Respiratory Respiratory exam: Present: clear to auscultation bilaterally. Absent: rhonchi, wheezes - Cardiovascular Cardiovascular exam: Present: regular rate and rhythm - GI/Abdominal GI/Abdominal exam: Present: hypoactive bowel sounds, soft. Absent: tenderness, rebound - Extremities Exam Extremities exam: Present: normal inspection - Back Exam Back exam: Present: normal inspection - Neurological Exam Neurological exam: Present: alert, oriented X3 - Psychiatric Psychiatric exam: Present: normal affect, normal mood - Skin Skin exam: Present: warm, intact Results - Labs CBC & BMP: 09/21/16 05:53 09/21/16 05:53
[2016-09-21] MEDS ORDERED: CLOPIDOGREL 75 MG TABLET PO SCH (21:00)
[2016-09-21] MEDS: clonazePAM 0.5 MG TABLET PO SCH (22:14)
[2016-09-21] MEDS: INSULIN GLARGINE 100 UNIT/ML SUBCUT SCH (22:14)
[2016-09-21] MEDS: LEVOFLOXACIN INJ 750 MG in PREMIX 1 EACH IV SCH (23:36)
[2016-09-22] MEDS: ALBUTEROL/IPRATROPIUM 3 ML NEB RESP TX SCH ×4 (00:50→19:23)
[2016-09-22 05:24] LABS: Basophils % 0.1 % (0.0-0.8); Eosinophils % 0.1 % (0.00-10.9); Hematocrit 25.4 VOL% (42.0-52.0); Hemoglobin 8.2 GM/DL (14.0-18.0); Immature Granulocytes % 1.1 %; Immature Granulocytes Absolute 0.13 #; Lymphocytes # 1.1 10*3/uL (1.4-4.0); Lymphocytes % 9.6 % (21.2-54.2); Mean Corpuscular HGB Conc 32.3 GM/DL (32-36); Mean Corpuscular Hemoglobin 26 PG (27-34); Mean Corpuscular Volume 80.9 FL (87-102); Mean Platelet Volume 10.7 FL (9.6-12.0); Monocytes # 1.4 10*3/uL (0.11-0.8); Monocytes % 11.9 % (1.7-12.7); NRBC # 0.02 10*3/uL; Neutrophils # 8.9 10*3/uL (1.4-7.4); Neutrophils % 77.2 % (38.7-73.9); Platelet Count 256 T/CUMM (130-400); Red Blood Count 3.14 MC/CUMM (3.8-5.5); Red Cell Distribution Width 13.6 % (9.3-17.3); White Blood Count 11.6 T/CUMM (4-12)
[2016-09-22 05:54] LABS: Calcium 8.9 MG/DL (8.5-10.1); Magnesium 2.5 MG/DL (1.8-2.4); Osmolality,Calculated 273.8 MOS/KG (273-304); Potassium 4.4 MMOL/L (3.5-5.1)
[2016-09-22] MEDS: METOPROLOL SUCCINATE XL 25 MG TABLET PO SCH (08:55)
[2016-09-22] MEDS: DILTIAZEM CD 120 MG CAPSULE PO SCH ×2 (08:55→21:00)
[2016-09-22] MEDS: CILOSTAZOL 50 MG TABLET PO SCH ×2 (08:55→21:01)
[2016-09-22] MEDS: PANTOPRAZOLE 40 MG TABLET PO SCH (08:55)
[2016-09-22] MEDS: ROSUVASTATIN 20 MG TABLET PO SCH (08:55)
[2016-09-22] MEDS: ASPIRIN CHEW 81 MG TABLET PO SCH (08:55)
[2016-09-22] MEDS: predniSONE 20 MG TABLET PO SCH (08:55)
[2016-09-22] MEDS: ENOXAPARIN 40 MG/0.4 ML SYRINGE SUBCUT SCH (08:59)
[2016-09-22] MEDS: BUDESONIDE/FORMOTEROL 160-4.5 INHALER 6 GM INH SCH ×2 (08:59→21:03)
--- NOTE | 2016-09-22 09:39 | Cardiology Progress Note ---
Assessment and Plan (1) Acute exacerbation of chronic obstructive pulmonary disease (COPD) Status: Acute Assessment and plan: INITIAL CONSULT SEPTEMBER 16, 2016: ASSESSMENT/PLAN: 1. 76-year-old BM remote smoker with multiple medical problems including hypertension, COPD, CAD, status post prolonged hospitalization April 2016 with bilateral submassive PE and cardiac arrest (eventually received IVC filter due to GI bleeding) with chronic dyspnea on exertion orthopnea who now presents with some shortness of breath at rest and worsening in his usual dyspnea on exertion, possible COPD exacerbation. 2. Trivial troponin elevation to 0.1 with chronic right bundle branch block 3. Echocardiogram today shows ejection fraction of 70% with mild LVH; he could have some degree of diastolic heart failure. 4. PAD with history of foot wounds, and claudication in ABIs of 0.5 0.4 noted last year on the right and left side respectively 5. Change metoprolol to Toprol 25 mg twice daily 6. Add Crestor 20 mg daily given his CAD and PAD September 18 update: 1. Mr. Morfin had stable CAD with distal RCA occlusion (fills by left right collaterals) at catheterization yesterdayrecommend continued medical therapy 2. Given his severe PAD and slow healing foot wounds and possible rest pain I performed lower extremity angiography which showed occluded proximal left SFA as well as occluded left popliteal, as well as critical right SFA disease and three-vessel proximal occlusions at the trifurcation on the right. 3. Continue Pletal and high intensity statin (started this admission, with LDL 111), as well as baby aspirin 4. COPD exacerbation is probably slowly improving but still has some wheezing 5. Hyperdynamic LV function noted with EF 70% and probably some diastolic dysfunction; diltiazem is reasonable, I will discontinue amlodipine so he will not be on 2 calcium channel blockers 6. Right radial access site looks good 7. Percutaneous intervention could be considered for his PAD; he is followed by Dr. Marlon Beckett for wound care, will follow with Dr. Schwartz his primary compound specialist after discharge September 19 update: 1. Mr. Morfin's COPD seems to be improving and responding to bronchodilator as he has significant less shortness of breath today 2. His hyperdynamic/normal ejection fraction is encouraging with EF 70% 3. Creatinine is stable at 1.8; would continue gentle hydration 4. Given his severe bilateral PAD and probable rest pain, I discussed with risks and benefits of percutaneous intervention. I recommend he discuss with his , but he is wishing to proceed to try to get some relief. Given his anatomy and recent heart catheterization, I would recommend we accessed the right lower extremity from the left groin, with plan for atherectomy and angioplasty of his critical right SFA disease and treatment at least 1 of his outflow vessels. September 21 update: 1. Mr. Morfin was much improved with regard to his COPD without shortness of breath this morning 2. Status post stenting of severe right SFA disease yesterday; I was unable to open his three-vessel proximal occlusions of the trifurcation on the right. 3. Continue high intensity statin therapy and Pletal, with baby aspirin and Plavix. 4. Dr. Mireles is evaluating for possible femoropopliteal bypass at a later time 5. Given bilateral groin bruits, and bilateral groin access yesterday we will order ultrasound 6. Renal function is actually normal this morning; discontinue IV fluid September 22 update: 1. Mr. Morfin still has a little wheezing but is improving slowly with his COPD 2. Ultrasound yesterday showed right femoral DVT; occlusive? 3. Microcytic anemia with hematocrit slowly trending down; discontinue Plavix, and decrease cilostazol to 50 mg twice daily; he is currently on low-dose Lovenox, defer to primary service with regard to best treatment for his DVT in the context of microcytic anemia without active source of bleeding. 4. Very proximal left superficial femoral artery occlusion previously noted on angiography, suspect this is what ultrasound is seeing on the arterial system. 5. Plan follow-up in the next 1-2 weeks time; Dr. Mireles will be following up as well given his left proximal SFA occlusion as well as popliteal occlusions and slow/nonhealing ulcers and possible rest pain 6. I will sign off; please contact cardiology service if needed prior to discharge. Current Visit: Yes (2) History of cardiac arrest Status: Acute Current Visit: Yes (3) History of pulmonary embolus (PE) Status: Acute Current Visit: Yes (4) Hypokalemia Status: Acute Current Visit: Yes (5) Hypomagnesemia Status: Acute Current Visit: Yes (6) Acute on chronic renal failure Status: Acute Current Visit: No (7) Anemia Status: Acute Current Visit: No Cardiology - PN: Subj Interval history: Mr. Lira reports his feet and legs are similar "the left is worse than the right". He says the sores on top of his feet are healing gradually over months but the heels have not made much progress. His breathing is gotten a little better. Is not having any chest pain or apparent bleeding. He has been constipated I had a bowel movement a couple of days. Exam (Progress Note) - Constitutional Vitals: Period Temp Pulse Resp BP Sys/Gilbert Pulse Ox Last 24 Hr 98.4 F-99.2 F 77-107 16-20 123-166/60-78 93-100 General appearance: normal weight, no acute distress - Head Head exam: Present: normal inspection, normocephalic, atraumatic - Neck Neck exam: Present: normal inspection - Respiratory Respiratory exam: Present: rhonchi, wheezes. Absent: stridor - Cardiovascular Cardiovascular exam: Present: tachycardia. Absent: diastolic murmur, rubs - GI/Abdominal GI/Abdominal exam: Present: soft. Absent: tenderness - Extremities Exam Extremities exam: Absent: edema Result/EKG - Labs CBC & BMP: 09/22/16 04:07 09/22/16 04:07 Labs: Laboratory Results - last 24 hr 09/21/16 09/21/16 09/21/16 11:28 15:02 19:00 WBC RBC Hgb Hct MCV MCH MCHC RDW Plt Count MPV Neut % (Auto) Lymph % (Auto) [place] % (Auto) Eos % (Auto) Baso % (Auto) Neut # (Auto) Lymph # (Auto) [place] # (Auto) Eos # (Auto) Baso # (Auto) Immature Gran % Nucleated RBC % Immature Gran # Nucleated RBCs # Sodium Potassium Chloride Carbon Dioxide Anion Gap BUN Creatinine GFR Calculation BUN/Creatinine Ratio Glucose POC Glucose 71 L 269 H 366 H Calculated Osmolality Calcium Magnesium 09/22/16 09/22/16 04:07 04:07 WBC 11.6 RBC 3.14 L Hgb 8.2 L Hct 25.4 L MCV 80.9 L MCH 26 L MCHC 32.3 RDW 13.6 Plt Count 256 MPV 10.7 Neut % (Auto) 77.2 H Lymph % (Auto) 9.6 L [place] % (Auto) 11.9 Eos % (Auto) 0.1 Baso % (Auto) 0.1 Neut # (Auto) 8.9 H Lymph # (Auto) 1.1 L [place] # (Auto) 1.4 H Eos # (Auto) 0.0 Baso # (Auto) 0.0 Immature Gran % 1.1 Nucleated RBC % 0.2 Immature Gran # 0.13 Nucleated RBCs # 0.02 Sodium 137 Potassium 4.4 Chloride 98 Carbon Dioxide 33 H Anion Gap 10.4 BUN 22 H Creatinine 1.30 GFR Calculation 59 BUN/Creatinine Ratio 16.00 Glucose 65 L POC Glucose Calculated Osmolality 273.8 Calcium 8.9 Magnesium 2.5 H Specialty Discharge - Follow Up or Referrals Follow up with: Kian Stanton MD [Physician] - 2 Weeks (with [facility]; [facility] CMP CBC)
[2016-09-22] MEDS: INSULIN REGULAR 100 UNIT/ML SUBCUT SCH ×4 (09:50→21:01)
--- NOTE | 2016-09-22 12:14 | Hospitalist Progress Note ---
Assessment and Plan (1) Constipation Status: Chronic Assessment and plan: Milk of mag prn add daily miralax Current Visit: No Qualifiers: Qualified Code(s): K59.00 - Constipation, unspecified (2) COPD exacerbation Status: Resolved Assessment and plan: Change duonebs to Q4 Continue steroids Current Visit: No (3) DMII (diabetes mellitus, type 2) Status: Chronic Current Visit: No (4) Leg pain, bilateral Status: Acute Current Visit: No Hospitalist: Subjective Interval history: No acute events overnight. Noted to have sob and wheezing after coming from the bathroom. He has no complaints. Noted that doppler with right femoral dvt. He was diagnosed with dvt in May, an IVC filter was placed at that time, due to history of GI bleed. Also noted is his slow decline in H/H, along with cardiology's change in medications. Will monitor. Exam - Constitutional Vitals: Period Temp Pulse Resp BP Sys/Gilbert Pulse Ox Last 24 Hr 97 F-99.2 F 77-107 16-20 123-152/60-75 93-100 General appearance: over weight - Head Head exam: Present: normocephalic, atraumatic - Eye Eye exam: Present: EOMI Pupils: Present: DILSHAD - ENT ENT exam: Present: normal exam - Neck Neck exam: Present: normal inspection - Respiratory Respiratory exam: Present: clear to auscultation bilaterally - Cardiovascular Cardiovascular exam: Present: regular rate and rhythm - GI/Abdominal GI/Abdominal exam: Present: normal bowel sounds, soft. Absent: tenderness, rebound - Extremities Exam Extremities exam: Present: normal inspection - Back Exam Back exam: Present: normal inspection - Neurological Exam Neurological exam: Present: alert, oriented X3 - Psychiatric Psychiatric exam: Present: normal affect, normal mood - Skin Skin exam: Present: warm, intact Results - Labs CBC & BMP: 09/22/16 04:07 09/22/16 04:07 Specialty Discharge - Follow Up or Referrals Follow up with: Kian Stanton MD [Physician] - 2 Weeks (with [facility]; [facility] CMP CBC)
[2016-09-22] MEDS: COLLAGENASE OINT 30 GM TUBE TOP SCH ×2 (15:33→18:36)
[2016-09-22] MEDS: INSULIN GLARGINE 100 UNIT/ML SUBCUT SCH (21:01)
[2016-09-22] MEDS: clonazePAM 0.5 MG TABLET PO SCH (21:01)
[2016-09-22] MEDS: LEVOFLOXACIN INJ 750 MG in PREMIX 1 EACH IV SCH (23:10)
[2016-09-23] MEDS: ALBUTEROL/IPRATROPIUM 3 ML NEB RESP TX SCH ×7 (00:48→22:42)
[2016-09-23 05:46] LABS: Eosinophils % 0.1 % (0.00-10.9); Hematocrit 24.2 VOL% (42.0-52.0); Hemoglobin 7.6 GM/DL (14.0-18.0); Immature Granulocytes % 1.4 %; Immature Granulocytes Absolute 0.16 #; Lymphocytes # 1.2 10*3/uL (1.4-4.0); Lymphocytes % 10.6 % (21.2-54.2); Mean Corpuscular HGB Conc 31.4 GM/DL (32-36); Mean Corpuscular Hemoglobin 26 PG (27-34); Mean Corpuscular Volume 81.8 FL (87-102); Mean Platelet Volume 10.6 FL (9.6-12.0); Monocytes # 1.2 10*3/uL (0.11-0.8); Monocytes % 10.8 % (1.7-12.7); Neutrophils # 8.7 10*3/uL (1.4-7.4); Neutrophils % 77.1 % (38.7-73.9); Platelet Count 245 T/CUMM (130-400); Red Blood Count 2.96 MC/CUMM (3.8-5.5); Red Cell Distribution Width 13.8 % (9.3-17.3); White Blood Count 11.3 T/CUMM (4-12)
[2016-09-23] MEDS: INSULIN REGULAR 100 UNIT/ML SUBCUT SCH ×4 (08:25→21:36)
[2016-09-23] MEDS: COLLAGENASE OINT 30 GM TUBE TOP SCH (09:00)
--- NOTE | 2016-09-23 09:22 | Event Note ---
Mr. Morfin's feet which continue to show chronic ischemia and he complains that his feet can still hurt and burn although I do not see any big problem with the ongoing ulcers. He probably does have ischemic rest pain and he does not feel that his right leg is really much better now than it was prior.
[2016-09-23] MEDS: ENOXAPARIN 40 MG/0.4 ML SYRINGE SUBCUT SCH (09:23)
[2016-09-23] MEDS: DILTIAZEM CD 120 MG CAPSULE PO SCH ×2 (09:23→21:37)
[2016-09-23] MEDS: predniSONE 20 MG TABLET PO SCH (09:23)
[2016-09-23] MEDS: METOPROLOL SUCCINATE XL 25 MG TABLET PO SCH (09:23)
[2016-09-23] MEDS: PANTOPRAZOLE 40 MG TABLET PO SCH (09:23)
[2016-09-23] MEDS: CILOSTAZOL 50 MG TABLET PO SCH ×2 (09:23→21:38)
[2016-09-23] MEDS: ROSUVASTATIN 20 MG TABLET PO SCH (09:23)
[2016-09-23] MEDS: ASPIRIN CHEW 81 MG TABLET PO SCH (09:23)
[2016-09-23] MEDS: BUDESONIDE/FORMOTEROL 160-4.5 INHALER 6 GM INH SCH ×2 (09:24→21:38)
--- NOTE | 2016-09-23 09:24 | Event Note ---
I do not see significant hematoma in the either of the groins and I think the patient can be safely allowed to be up and about in the room
[2016-09-23] MEDS: MAGNESIUM HYDROXIDE SUSP 30 ML UDCUP PO PRN (09:27)
--- NOTE | 2016-09-23 10:47 | Event Note ---
10:15 AM - We signed off of Mr. Morfin yesterday but Dr. Chavez was called last night regarding a right groin hematoma that had increased in size. He has been hemodynamically stable and we stopped by this morning to check on him. I removed his groin dressings and he's not had any active bleeding although his H& H has slowly trended down. I have not seen Mr. Morfin previously, but he does have what feels like a hematoma in the right groin. I do not have anything to compare this to. Previous ultrasound 2 days ago showed no obvious pseudoaneurysm bilaterally. We will recheck this to be sure nothing has changed. Dr. Chavez and Dr. Stanton have been made aware. 1430 - Ultrasound was done and no hematoma, pseudoaneurysm, or AV fistula was noted. Dr. Stanton aware and will follow up with him in clinic in 1-2 weeks.
--- NOTE | 2016-09-23 11:55 | Ultrasound Report ---
Exam: US arterial duplex LE RT Date: 09/23/2016 10:21 AM Indication: Right groin hematoma with bruit Comparison: 09/21/2016 Technical grayscale color flow analysis obtained through the right inguinal region. Proximal thigh Findings: The right SFA is patent measuring 48 cm/s. Right common femoral artery is patent with blood flow 118 cm/s. The right inguinal region measures up to 2.7 cm with the lymph node present. No obvious pseudoaneurysm noted. The common femoral vein is occluded. Triphasic waveforms otherwise present in the arterial system. Study was limited to the growing and proximal area Impression: 1. 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 A small lymph node in the right axillary region 3. No obvious pseudoaneurysm or AV fistula present. No obvious hematoma noted. PROCEDURE INTERPRETED AT [facility] DEPARTMENT OF RADIOLOGY Final Report Signed by: Dr. Mina Pedro
--- NOTE | 2016-09-23 15:07 | Hospitalist Progress Note ---
Assessment and Plan (1) Constipation Status: Chronic Assessment and plan: Milk of mag prn add daily miralax Current Visit: No (2) COPD exacerbation Status: Resolved Assessment and plan: Change duonebs to Q4 Continue steroids Current Visit: No (3) DMII (diabetes mellitus, type 2) Status: Chronic Current Visit: No (4) Leg pain, bilateral Status: Acute Current Visit: No Hospitalist: Subjective Interval history: No acute events overnight. Patient noted to have a hematoma forming in his right groin. He was evaluated by cardiology. He will follow with them in clinic in 1-2 weeks. His H/H does continue to trend down slowly. Respiratory status is improved from yesterday. Still has some wheezing on exam. Continue duonebs and steroids. Possible discharge soon. Will discontinue levquin today. Exam - Constitutional Vitals: Period Temp Pulse Resp BP Sys/Gilbert Pulse Ox Last 24 Hr 97.7 F-99.4 F 103-118 16-20 122-144/63-72 92-100 General appearance: over weight - Head Head exam: Present: normocephalic, atraumatic - Eye Eye exam: Present: EOMI Pupils: Present: DILSHAD - ENT ENT exam: Present: normal exam - Neck Neck exam: Present: normal inspection - Respiratory Respiratory exam: Present: wheezes. Absent: rhonchi - Cardiovascular Cardiovascular exam: Present: regular rate and rhythm - GI/Abdominal GI/Abdominal exam: Present: normal bowel sounds, soft. Absent: tenderness, rebound - Extremities Exam Extremities exam: Present: normal inspection - Back Exam Back exam: Present: normal inspection - Neurological Exam Neurological exam: Present: alert, oriented X3 - Psychiatric Psychiatric exam: Present: normal affect, normal mood - Skin Skin exam: Present: warm, intact Results - Labs CBC & BMP: 09/23/16 04:54 09/22/16 04:07 Specialty Discharge - Follow Up or Referrals Follow up with: Kian Stanton MD [Physician] - 10/11/16 2:50 pm (Lab work and Ankle/Brachial Index testing on October 06 at 8:00 AM Follow up with Dr. Stanton October 11 at 2:50 PM with [facility]; [facility] CMP CBC) Von Mireles MD [Physician] - 10/25/16 1:30 pm
[2016-09-23] MEDS: DOCUSATE SODIUM 100 MG CAPSULE PO SCH ×2 (17:02→21:38)
[2016-09-23] MEDS: INSULIN GLARGINE 100 UNIT/ML SUBCUT SCH (21:37)
[2016-09-24] MEDS: ALBUTEROL/IPRATROPIUM 3 ML NEB RESP TX SCH ×5 (02:29→19:32)
[2016-09-24 05:33] LABS: Hematocrit 24.8 VOL% (42.0-52.0); Hemoglobin 7.7 GM/DL (14.0-18.0); Immature Granulocytes % 1.9 %; Immature Granulocytes Absolute 0.22 #; Lymphocytes # 0.9 10*3/uL (1.4-4.0); Lymphocytes % 7.8 % (21.2-54.2); Mean Corpuscular Hemoglobin 26 PG (27-34); Mean Corpuscular Volume 83.2 FL (87-102); Mean Platelet Volume 10.3 FL (9.6-12.0); Monocytes # 1.2 10*3/uL (0.11-0.8); Monocytes % 10.9 % (1.7-12.7); NRBC # 0.02 10*3/uL; Neutrophils % 79.4 % (38.7-73.9); Platelet Count 269 T/CUMM (130-400); Red Blood Count 2.98 MC/CUMM (3.8-5.5); Red Cell Distribution Width 13.8 % (9.3-17.3); White Blood Count 11.3 T/CUMM (4-12)
[2016-09-24] MEDS: MAGNESIUM HYDROXIDE SUSP 30 ML UDCUP PO PRN ×2 (09:22→17:02)
[2016-09-24] MEDS: BUDESONIDE/FORMOTEROL 160-4.5 INHALER 6 GM INH SCH ×2 (09:22→21:15)
[2016-09-24] MEDS: PANTOPRAZOLE 40 MG TABLET PO SCH (09:22)
[2016-09-24] MEDS: ROSUVASTATIN 20 MG TABLET PO SCH (09:23)
[2016-09-24] MEDS: ASPIRIN CHEW 81 MG TABLET PO SCH (09:23)
[2016-09-24] MEDS: DOCUSATE SODIUM 100 MG CAPSULE PO SCH ×2 (09:23→21:15)
[2016-09-24] MEDS: CILOSTAZOL 50 MG TABLET PO SCH ×2 (09:23→21:15)
[2016-09-24] MEDS: predniSONE 20 MG TABLET PO SCH (09:23)
[2016-09-24] MEDS: DILTIAZEM CD 120 MG CAPSULE PO SCH ×2 (09:23→21:14)
[2016-09-24] MEDS: METOPROLOL SUCCINATE XL 25 MG TABLET PO SCH (09:23)
[2016-09-24] MEDS: LACTULOSE 20 GM/30 ML UDCUP PO PRN ×3 (10:45→21:16)
[2016-09-24] MEDS: INSULIN REGULAR 100 UNIT/ML SUBCUT SCH ×4 (10:45→21:12)
[2016-09-24] MEDS: COLLAGENASE OINT 30 GM TUBE TOP SCH (11:52)
[2016-09-24] MEDS: ENOXAPARIN 40 MG/0.4 ML SYRINGE SUBCUT SCH (11:52)
--- NOTE | 2016-09-24 15:56 | Hospitalist Progress Note ---
Assessment and Plan (1) Constipation Status: Chronic Assessment and plan: Milk of mag prn Lactulose prn Current Visit: No (2) COPD exacerbation Status: Resolved Assessment and plan: Change duonebs to Q4 Continue steroids Current Visit: No (3) DMII (diabetes mellitus, type 2) Status: Chronic Current Visit: No (4) Leg pain, bilateral Status: Acute Current Visit: No Hospitalist: Subjective Interval history: No acute events overnight. Respiratory status is better today, still with some wheezing. Still has not had a bowel movement. Lactulose prn, might have to try an enema. Possible discharge tomorrow. Exam - Constitutional Vitals: Period Temp Pulse Resp BP Sys/Gilbert Pulse Ox Last 24 Hr 97.0 F-99.7 F 96-116 17-20 112-143/53-68 95-100 General appearance: over weight - Head Head exam: Present: normocephalic, atraumatic - Eye Eye exam: Present: EOMI Pupils: Present: DILSHAD - ENT ENT exam: Present: normal exam - Neck Neck exam: Present: normal inspection - Respiratory Respiratory exam: Present: clear to auscultation bilaterally, wheezes. Absent: rhonchi - Cardiovascular Cardiovascular exam: Present: regular rate and rhythm - GI/Abdominal GI/Abdominal exam: Present: normal bowel sounds - Extremities Exam Extremities exam: Present: normal inspection - Back Exam Back exam: Present: normal inspection - Neurological Exam Neurological exam: Present: alert - Psychiatric Psychiatric exam: Present: normal affect, normal mood - Skin Skin exam: Present: warm, intact Results - Labs CBC & BMP: 09/24/16 03:35 09/22/16 04:07 Specialty Discharge - Follow Up or Referrals Follow up with: Kian Stanton MD [Physician] - 10/11/16 2:50 pm (Lab work and Ankle/Brachial Index testing on October 06 at 8:00 AM Follow up with Dr. Stanton October 11 at 2:50 PM with [facility]; [facility] CMP CBC) Von Mireles MD [Physician] - 10/25/16 1:30 pm
[2016-09-24] MEDS ORDERED: SODIUM PHOSPHATE ENEMA 133 ML BOTTLE RECTAL PRN (15:57)
[2016-09-24] MEDS: INSULIN GLARGINE 100 UNIT/ML SUBCUT SCH (21:15)
[2016-09-25] MEDS: ALBUTEROL/IPRATROPIUM 3 ML NEB RESP TX SCH ×5 (00:09→14:43)
[2016-09-25] MEDS: ASPIRIN CHEW 81 MG TABLET PO SCH (08:35)
[2016-09-25] MEDS: METOPROLOL SUCCINATE XL 25 MG TABLET PO SCH (08:35)
[2016-09-25] MEDS: CILOSTAZOL 50 MG TABLET PO SCH (08:36)
[2016-09-25] MEDS: predniSONE 20 MG TABLET PO SCH (08:36)
[2016-09-25] MEDS: PANTOPRAZOLE 40 MG TABLET PO SCH (08:36)
[2016-09-25] MEDS: ROSUVASTATIN 20 MG TABLET PO SCH (08:36)
[2016-09-25] MEDS: DILTIAZEM CD 120 MG CAPSULE PO SCH (08:37)
[2016-09-25] MEDS: DOCUSATE SODIUM 100 MG CAPSULE PO SCH (08:37)
[2016-09-25] MEDS: INSULIN REGULAR 100 UNIT/ML SUBCUT SCH ×2 (08:38→13:18)
[2016-09-25] MEDS: ENOXAPARIN 40 MG/0.4 ML SYRINGE SUBCUT SCH (08:41)
[2016-09-25] MEDS: BUDESONIDE/FORMOTEROL 160-4.5 INHALER 6 GM INH SCH (08:41)
--- NOTE | 2016-09-25 10:17 | Discharge Summary ---
Hospital Course - Hospital Course Hospital Course: Mr. Morfin is a 76 y/o male who came to ED with c/o SOB with productive cough that had been ongoing for a week. Pt had some chest tightness in the mid part of his chest. No radiation. Patient very sleepy most likely due to his elevated CO2. Chest CT showed no evidence of PE. Pt was in hospital on July 15, 2016, for PE and cardiac arrest 4x. He was admitted to the hospitalist service for COPD exacerbation and elevated troponin. He was started on Levaquin, duonebs and solumedrol. Cardiology was consulted. Coronary angiography and abdominal aortogram were performed. Angiography with stable CAD with distal RCA occlusion, recommended medical management. Lower extremity angiography with occluded proximal left SFA and occluded left popliteal, as well as critical right SFA disease and three-vessel proximal occlusions at the trifurcation of the right. He underwent stenting of his severe right SFA disease. Vascular surgery was consulted for possible femoropopliteal bypass. He will follow with them in clinic. During admission doppler was also significant for dvt. Patient has a history of PE and DVT, IVC filter was placed in May due to history of GI bleed. During admission his COPD exacerbation improved very slowly. Today his is not wheezing on exam and able to walk around his room without sob. He has now reached maximum benefit of inpatient stay and will be discharged home. He will follow-up with Dr. Stanton in 1-2 weeks. - Time spent with patient Time with patient DS: Less than 30 minutes Diagnosis - Discharge Diagnosis (1) Constipation Status: Chronic (2) COPD exacerbation Status: Resolved (3) DMII (diabetes mellitus, type 2) Status: Chronic (4) Leg pain, bilateral Status: Acute Specialty Discharge - Follow Up or Referrals Follow up with: Kian Stanton MD [Physician] - 10/11/16 2:50 pm (Lab work and Ankle/Brachial Index testing on October 06 at 8:00 AM Follow up with Dr. Stanton October 11 at 2:50 PM with [facility]; [facility] CBC) Von Mireles MD [Physician] - 10/25/16 1:30 pm Discharge Plan - Discharge Data Disposition: Disch To Home/Self Care Condition at Discharge: Stable Discharge Diet: heart healthy, low fat, low cholesterol Activity: increase activity as tolerated Hygiene: no restrictions Weight Bearing at Discharge: weight bear as tolerated Driving: no restrictions Contact your physician if you experience:: fever over 101, Shortness of breath - Discharge Medications New Diltiazem Cd Cap [Cardizem CD] 120 mg PO BID #60 capsule Rosuvastatin [Crestor] 20 mg PO DAILY #30 tablet Metoprolol Succinate Xl [Toprol Xl] 25 mg PO DAILY #30 tablet Continue Albuterol Sulfate [Ventolin HFA] 1 puff INH Q4H Metformin HCl 1,000 mg PO BID Albuterol/Ipratropium Neb [Duoneb] 3 ml RESP TX RT Q6H WA Aspirin Chew Tab 81 mg PO DAILY Furosemide Tab [Lasix Tab] 40 mg PO DAILY #30 tablet Cilostazol 100 mg PO BID Magnesium Hydroxide Susp [Milk of Magnesia] 30 ml PO Q4H PRN PRN Reason: Constipation clonazePAM TAB [KlonoPIN] 0.25 mg PO BEDTIME raNITIdine HCl [Ranitidine HCl] 150 mg PO BID Polyvinyl Alcohol 1.4% Oph No [Artificial Tears Oph Soln] 1 drop BOTH EYES TID PRN PRN Reason: Dry Eyes Discontinued Amlodipine Besylate 5 mg PO DAILY Metoprolol Tartrate 50 mg PO BID Pentoxifylline 400 mg PO TID W/MEALS - Follow Up or Referral Follow Up: Kian Stanton MD [Physician] - 10/11/16 2:50 pm (Lab work and Ankle/Brachial Index testing on October 06 at 8:00 AM Follow up with Dr. Stanton October 11 at 2:50 PM with [facility]; [facility] CMP CBC) Von Mireles MD [Physician] - 10/25/16 1:30 pm - Forms/Instructions Exam - Constitutional Vitals: Period Temp Pulse Resp BP Sys/Gilbert Pulse Ox Last 24 Hr 97.4 F-99.7 F 16-117 16-103 121-144/56-71 95-100 General appearance: over weight - Head Head exam: Present: normocephalic, atraumatic - Eye Eye exam: Present: EOMI Pupils: Present: DILSHAD - ENT ENT exam: Present: normal exam - Neck Neck exam: Present: normal inspection - Respiratory Respiratory exam: Present: clear to auscultation bilaterally - Cardiovascular Cardiovascular exam: Present: regular rate and rhythm - GI/Abdominal GI/Abdominal exam: Present: normal bowel sounds, soft. Absent: tenderness, rebound - Extremities Exam Extremities exam: Present: normal inspection - Back Exam Back exam: Present: normal inspection - Neurological Exam Neurological exam: Present: alert, oriented X3 - Psychiatric Psychiatric exam: Present: normal affect, normal mood - Skin Skin exam: Present: warm, intact Discharge Results Labs on day of discharge: Labs from last 24 hours 09/25/16 09/24/16 09/24/16 07:27 19:39 14:59 POC Glucose 154 H 272 H 378 H 09/24/16 09/24/16 11:34 07:07 POC Glucose 284 H 171 H DS: Provider Date of admission: 09/15/16 20:13 Primary care physician: . No PCP Attending physician on admission: Diego Bhagat MD Consults: 09/16/16 07:50 Consult to Dietitian [CONS] Routine Reason for Dietitian: Dietary Consult 09/16/16 09:59 Consult to Physician [CONS] Routine Comment: Consulting Provider: Johny Chavez Consult to Specialist Group: Cardiology When should Consulting Provider be notified: Now Person Notified: Teagan Date Notified: 09/16/16 Time Notified: 10:25 09/17/16 11:34 PT [Consult to Physical Therapy] [CONS] Routine Reason for Physical Therapy: Evaluate and Treat 09/18/16 12:00 Consult to Physician [CONS] Routine Comment: Consulting Provider: Von Mireles When should Consulting Provider be notified: In am Person Notified: YUKO Date Notified: 09/20/16 Time Notified: 09:31 Discharging clinician: Isadora Pedraza MD
[2016-09-25] MEDS: COLLAGENASE OINT 30 GM TUBE TOP SCH (11:22)
[2016-09-25 13:03] VITALS: BP 130/67
== END 2016-09-25 14:40 | disposition home or self-care (01) | DRG 167 ==
LOC: N.ED 15:59 → SUATTDRO 20:13 → N.EDINP 20:13 → N.5E 20:59 → N.TELES 09-20 15:12
PROVIDERS: ADMIT Internal Medicine; ATTEND Internal Medicine

== ENCOUNTER 2017-05-02 11:03 | Inpatient (IN) ==
[2017-05-02 11:43] LABS: Basophils % 0.5 % (0.0-0.8); Eosinophils # 0.1 10*3/uL (0.0-0.87); Eosinophils % 2.2 % (0.00-10.9); Hematocrit 36.5 VOL% (42.0-52.0); Hemoglobin 11.2 GM/DL (14.0-18.0); Immature Granulocytes % 0.3 %; Immature Granulocytes Absolute 0.02 #; Lymphocytes # 2.5 10*3/uL (1.4-4.0); Lymphocytes % 40.9 % (21.2-54.2); Mean Corpuscular HGB Conc 30.7 GM/DL (32-36); Mean Corpuscular Hemoglobin 27 PG (27-34); Mean Corpuscular Volume 88.2 FL (87-102); Mean Platelet Volume 9.8 FL (9.6-12.0); Monocytes # 0.5 10*3/uL (0.11-0.8); Neutrophils # 2.9 10*3/uL (1.4-7.4); Neutrophils % 48.1 % (38.7-73.9); Platelet Count 170 T/CUMM (130-400); Red Blood Count 4.14 MC/CUMM (3.8-5.5); Red Cell Distribution Width 14.6 % (9.3-17.3)
[2017-05-02] MEDS ORDERED: ALBUTEROL/IPRATROPIUM 3 ML NEB RESP TX STA (11:49)
[2017-05-02 12:14] LABS: Alanine Aminotransferase 12 U/L (16-61); Alkaline Phosphatase 103 U/L (45-117); Aspartate Amino Transferase 18 U/L (0-37); Bilirubin,Total < 0.39 MG/DL (0.2-1.0); Blood Urea Nitrogen 28 MG/DL (7-18); Calcium 8.9 MG/DL (8.5-10.1); Glucose 130 MG/DL (74-106); Osmolality,Calculated 284.5 MOS/KG (273-304); Potassium 4.1 MMOL/L (3.5-5.1); Sodium 139 MMOL/L (136-145); Total Protein 7.7 G/DL (6.4-8.3)
[2017-05-02 12:15] LABS: CKMB % 2.2 %; Troponin I Only 0.02 NG/ML (0.00-0.045)
[2017-05-02] MEDS ORDERED: ALBUTEROL/IPRATROPIUM 3 ML NEB RESP TX PRN (14:47)
[2017-05-02] MEDS ORDERED: DEXTROSE 50% 25 GM/50 ML VIAL IV PRN (14:47)
[2017-05-02] MEDS ORDERED: ACETAMINOPHEN 325 MG TABLET PO PRN (14:47)
[2017-05-02] MEDS ORDERED: INSULIN LISPRO 100 UNIT/ML SUBCUT ONE (14:47)
[2017-05-02] MEDS ORDERED: NICOTINE 21 MG/24 HR PATCH TRANSDERM PRN (14:47)
[2017-05-02] MEDS ORDERED: GLUCAGON 1 MG VIAL IM PRN (14:47)
[2017-05-02] MEDS ORDERED: ONDANSETRON 4 MG/2 ML VIAL IV PRN (14:47)
[2017-05-02] MEDS ORDERED: MORPHINE 2 MG/1 ML SYRINGE IV PRN (14:47)
[2017-05-02] MEDS ORDERED: hydrALAZINE 20 MG/1 ML VIAL IV PRN (14:56)
[2017-05-02] MEDS: SODIUM CHLORIDE 0.9% 1,000 ML IV SCH ×2 (15:06→15:51)
[2017-05-02] MEDS: INSULIN LISPRO 100 UNIT/ML SUBCUT SCH ×2 (15:33→22:18)
[2017-05-02] MEDS: PANTOPRAZOLE 40 MG TABLET PO SCH (15:51)
[2017-05-02] MEDS: ASPIRIN EC 81 MG TABLET PO SCH (15:51)
[2017-05-02] MEDS: methylPREDNISolone SOD SUC 40 MG/1 ML VIAL IV SCH (16:00)
[2017-05-02] MEDS: METOPROLOL TARTRATE 50 MG TABLET PO SCH (20:55)
[2017-05-02] MEDS: DILTIAZEM CD 120 MG CAPSULE PO SCH (20:56)
[2017-05-02] MEDS: metFORMIN 500 MG TABLET PO SCH (20:56)
[2017-05-03] MEDS: SODIUM CHLORIDE 0.9% 1,000 ML IV SCH ×2 (01:45→13:25)
[2017-05-03] MEDS: methylPREDNISolone SOD SUC 40 MG/1 ML VIAL IV SCH ×2 (03:13→15:13)
[2017-05-03 06:09] LABS: Basophils % 0.2 % (0.0-0.8); Hematocrit 34.1 VOL% (42.0-52.0); Hemoglobin 10.8 GM/DL (14.0-18.0); Immature Granulocytes % 0.3 %; Immature Granulocytes Absolute 0.02 #; Lymphocytes # 0.9 10*3/uL (1.4-4.0); Lymphocytes % 14.4 % (21.2-54.2); Mean Corpuscular HGB Conc 31.7 GM/DL (32-36); Mean Corpuscular Hemoglobin 27 PG (27-34); Mean Platelet Volume 10.6 FL (9.6-12.0); Monocytes # 0.1 10*3/uL (0.11-0.8); Monocytes % 1.7 % (1.7-12.7); Neutrophils # 5.1 10*3/uL (1.4-7.4); Neutrophils % 83.4 % (38.7-73.9); Platelet Count 174 T/CUMM (130-400); Red Blood Count 4.01 MC/CUMM (3.8-5.5); Red Cell Distribution Width 14.7 % (9.3-17.3); White Blood Count 6.1 T/CUMM (4-12)
[2017-05-03 06:41] LABS: Calcium 8.7 MG/DL (8.5-10.1); Osmolality,Calculated 279.8 MOS/KG (273-304); Potassium 4.8 MMOL/L (3.5-5.1); Risk Ratio 2.11; VLDL CHOLESTEROL 9.4 MG/DL
[2017-05-03] MEDS: metFORMIN 500 MG TABLET PO SCH (09:47)
[2017-05-03] MEDS: DILTIAZEM CD 120 MG CAPSULE PO SCH (09:47)
[2017-05-03] MEDS: PANTOPRAZOLE 40 MG TABLET PO SCH (09:47)
[2017-05-03] MEDS: INSULIN LISPRO 100 UNIT/ML SUBCUT SCH ×2 (09:48→14:00)
[2017-05-03] MEDS: ASPIRIN EC 81 MG TABLET PO SCH (09:48)
[2017-05-03] MEDS: METOPROLOL TARTRATE 50 MG TABLET PO SCH (09:51)
[2017-05-03] MEDS ORDERED: DOXYCYCLINE HYCLATE INJ 100 MG in SODIUM CHLORIDE 0.9% 100 ML IV SCH (10:00)
[2017-05-03 17:20] VITALS: BP 140/62
== END 2017-05-03 17:18 | disposition home or self-care (01) | DRG 191 ==
LOC: N.ED 11:03 → N.EDINP 13:18 → SUATTDRO 13:18 → N.EDINP 14:28 → N.TELES 14:33
PROVIDERS: ADMIT Internal Medicine Nephrology; ATTEND Hospitalist

== ENCOUNTER 2017-05-31 00:37 | Inpatient (IN) ==
[2017-05-31] MEDS ORDERED: ASPIRIN 325 MG TABLET PO STA (00:58)
[2017-05-31] MEDS ORDERED: ONDANSETRON 4 MG/2 ML VIAL IV STA (00:58)
[2017-05-31] MEDS ORDERED: FUROSEMIDE 100 MG/10 ML VIAL IV STA (00:58)
[2017-05-31] MEDS ORDERED: MORPHINE 2 MG/1 ML SYRINGE IV STA (00:58)
[2017-05-31] MEDS ORDERED: methylPREDNISolone SOD SUC 125 MG/2 ML VIAL IV STA (00:58)
[2017-05-31] MEDS ORDERED: ALBUTEROL 2.5 MG/3 ML NEB RESP TX SCH (01:00)
[2017-05-31 01:07] LABS: Basophils % 0.5 % (0.0-0.8); Eosinophils # 0.1 10*3/uL (0.0-0.87); Eosinophils % 1.4 % (0.00-10.9); Hematocrit 32.9 VOL% (42.0-52.0); Hemoglobin 10.1 GM/DL (14.0-18.0); Immature Granulocytes % 0.5 %; Immature Granulocytes Absolute 0.03 #; Lymphocytes # 2.2 10*3/uL (1.4-4.0); Lymphocytes % 34.3 % (21.2-54.2); Mean Corpuscular HGB Conc 30.7 GM/DL (32-36); Mean Corpuscular Hemoglobin 28 PG (27-34); Mean Corpuscular Volume 90.1 FL (87-102); Mean Platelet Volume 10.1 FL (9.6-12.0); Monocytes # 0.7 10*3/uL (0.11-0.8); Monocytes % 10.6 % (1.7-12.7); Neutrophils # 3.3 10*3/uL (1.4-7.4); Neutrophils % 52.7 % (38.7-73.9); Platelet Count 172 T/CUMM (130-400); Red Blood Count 3.65 MC/CUMM (3.8-5.5); Red Cell Distribution Width 14.6 % (9.3-17.3); White Blood Count 6.3 T/CUMM (4-12)
[2017-05-31] MEDS ORDERED: ONDANSETRON 4 MG/2 ML VIAL ONE (01:14)
[2017-05-31] MEDS ORDERED: FUROSEMIDE 100 MG/10 ML VIAL ONE (01:15)
[2017-05-31] MEDS ORDERED: methylPREDNISolone SOD SUC 125 MG/2 ML VIAL ONE (01:15)
[2017-05-31] MEDS ORDERED: ASPIRIN 325 MG TABLET ONE (01:15)
[2017-05-31 01:28] LABS: Lactic Acid 1.5 MMOL/L (0.4-2.0)
[2017-05-31 01:31] LABS: Alanine Aminotransferase 13 U/L (16-61); Albumin 3.7 G/DL (3.4-5.0); Alkaline Phosphatase 93 U/L (45-117); Aspartate Amino Transferase 12 U/L (0-37); Calcium 8.8 MG/DL (8.5-10.1)
[2017-05-31 01:31] LABS: ABG Base Excess 1.4 MMOL/L (-2.5-2.5); ABG HCO3 25.3 MMOL/L (20-26); ABG Oxygen Saturation 79.9 % (95-100); ABG PCO2 57.9 MM HG (35-48); ABG PH 7.305 (7.35-7.45); ABG PO2 48.3 MM HG (80-95); ABG TCO2 26.6 MMOL/L (23-27)
[2017-05-31 01:32] LABS: Blood Urea Nitrogen 18 MG/DL (7-18); Glucose 119 MG/DL (74-106); Osmolality,Calculated 281.4 MOS/KG (273-304); Sodium 140 MMOL/L (136-145); Troponin I Only 0.018 NG/ML (0.00-0.045)
[2017-05-31 01:37] LABS: PT Patient Result 10.1 SECS
[2017-05-31 02:57] LABS: Apearance,Urine CLEAR (Clear); Bilirubin,Urine Negative (Negative); Blood, Urine Negative (Negative); Glucose,Urine (UA) Negative (Negative); Ketones,Urine Negative (Negative); Mucus,Urine Occasional /LPF (Occasional); Nitrite,Urine Negative (Negative); Protein,Urine Negative; RBC,Urine <1 /HPF (0-4); Urine Color Straw (Yellow); Urine Specific Gravity 1.005 (1.001-1.035); Urine Urobilinogen < 2.0 EU/DL (0.2-1.0); WBC,Urine <1 /HPF (0-6)
[2017-05-31] MEDS ORDERED: ONDANSETRON 4 MG/2 ML VIAL IV PRN (03:02)
[2017-05-31] MEDS ORDERED: GLUCAGON 1 MG VIAL IM PRN (03:02)
[2017-05-31] MEDS ORDERED: DEXTROSE 50% 25 GM/50 ML VIAL IV PRN (03:02)
[2017-05-31] MEDS ORDERED: NITROGLYCERIN SL 0.4 MG TABLET SL PRN (04:02)
[2017-05-31 04:43] LABS: Basophils % 0.2 % (0.0-0.8); Eosinophils % 0.1 % (0.00-10.9); Hematocrit 32.7 VOL% (42.0-52.0); Hemoglobin 10.3 GM/DL (14.0-18.0); Immature Granulocytes % 0.4 %; Immature Granulocytes Absolute 0.03 #; Lymphocytes # 0.6 10*3/uL (1.4-4.0); Lymphocytes % 7.4 % (21.2-54.2); Mean Corpuscular HGB Conc 31.5 GM/DL (32-36); Mean Corpuscular Hemoglobin 28 PG (27-34); Mean Corpuscular Volume 87.9 FL (87-102); Mean Platelet Volume 10.4 FL (9.6-12.0); Monocytes # 0.2 10*3/uL (0.11-0.8); Neutrophils # 7.3 10*3/uL (1.4-7.4); Neutrophils % 89.9 % (38.7-73.9); Platelet Count 178 T/CUMM (130-400); Red Blood Count 3.72 MC/CUMM (3.8-5.5); Red Cell Distribution Width 14.7 % (9.3-17.3); White Blood Count 8.2 T/CUMM (4-12)
[2017-05-31 05:38] LABS: Osmolality,Calculated 282.7 MOS/KG (273-304); Potassium 3.7 MMOL/L (3.5-5.1); Risk Ratio 2.42
[2017-05-31] MEDS ORDERED: POLYETHYLENE GLYCOL POWDER 255 GM BOTTLE PO PRN (06:20)
[2017-05-31 07:11] LABS: Hypochromasia 1+; Ovalocytes Slight; Platelet Estimate Normal
[2017-05-31] MEDS: ALBUTEROL/IPRATROPIUM 3 ML NEB RESP TX SCH ×3 (07:45→20:16)
[2017-05-31] MEDS ORDERED: METOPROLOL TARTRATE 50 MG TABLET PO SCH (09:00)
[2017-05-31] MEDS: DILTIAZEM CD 120 MG CAPSULE PO SCH ×2 (09:10→21:32)
[2017-05-31] MEDS: CILOSTAZOL 100 MG TABLET PO SCH ×2 (09:11→21:32)
[2017-05-31] MEDS: FAMOTIDINE 20 MG TABLET PO SCH ×2 (09:11→21:33)
[2017-05-31] MEDS: BISACODYL 5 MG TABLET PO SCH ×2 (09:11→21:32)
[2017-05-31] MEDS: INSULIN LISPRO 100 UNIT/ML SUBCUT SCH ×4 (09:11→22:29)
[2017-05-31] MEDS: ASPIRIN CHEW 81 MG TABLET PO SCH (09:11)
[2017-05-31] MEDS: ENOXAPARIN 40 MG/0.4 ML SYRINGE SUBCUT SCH (09:11)
[2017-05-31] MEDS: methylPREDNISolone SOD SUC 40 MG/1 ML VIAL IV SCH ×2 (09:14→16:46)
[2017-05-31] MEDS: BUMETANIDE 1 MG/4 ML VIAL IV SCH ×2 (09:16→21:33)
[2017-05-31] MEDS ORDERED: SKIN HEALING OINT (AQUAPHOR) 50 GM TUBE TOP PRN (13:59)
[2017-05-31] MEDS: BACITRACIN OINT 0.9 GM PACK TOP SCH (14:45)
[2017-05-31] MEDS: METOPROLOL TARTRATE 100 MG TABLET PO SCH (21:32)
[2017-05-31] MEDS: ROSUVASTATIN 20 MG TABLET PO SCH (21:33)
[2017-06-01] MEDS: ALBUTEROL/IPRATROPIUM 3 ML NEB RESP TX SCH ×5 (00:36→23:20)
[2017-06-01] MEDS: methylPREDNISolone SOD SUC 40 MG/1 ML VIAL IV SCH ×4 (01:00→23:53)
[2017-06-01 06:59] LABS: Hematocrit 30.5 VOL% (42.0-52.0); Hemoglobin 9.6 GM/DL (14.0-18.0); Immature Granulocytes % 0.9 %; Immature Granulocytes Absolute 0.07 #; Lymphocytes # 0.6 10*3/uL (1.4-4.0); Lymphocytes % 8.5 % (21.2-54.2); Mean Corpuscular HGB Conc 31.5 GM/DL (32-36); Mean Corpuscular Hemoglobin 28 PG (27-34); Mean Corpuscular Volume 87.9 FL (87-102); Mean Platelet Volume 10.9 FL (9.6-12.0); Monocytes # 0.2 10*3/uL (0.11-0.8); Monocytes % 3.1 % (1.7-12.7); Neutrophils # 6.6 10*3/uL (1.4-7.4); Neutrophils % 87.5 % (38.7-73.9); Platelet Count 173 T/CUMM (130-400); Red Blood Count 3.47 MC/CUMM (3.8-5.5); Red Cell Distribution Width 14.6 % (9.3-17.3); White Blood Count 7.5 T/CUMM (4-12)
[2017-06-01 07:09] LABS: Calcium 8.5 MG/DL (8.5-10.1); Osmolality,Calculated 285.1 MOS/KG (273-304); Potassium 5.4 MMOL/L (3.5-5.1)
[2017-06-01 07:30] LABS: Band Neutrophils 1 % (0-10); Elliptocytes Few; Hypochromasia 1+; Lymphocytes 4 % (20-55); Platelet Estimate Normal; Segmented Neutrophils 90 % (50-85); Total Cells Counted 100
[2017-06-01 07:31] LABS: Giant Platelets Few
[2017-06-01] MEDS: INSULIN LISPRO 100 UNIT/ML SUBCUT SCH ×4 (09:18→21:53)
[2017-06-01] MEDS: METOPROLOL TARTRATE 100 MG TABLET PO SCH ×2 (09:19→21:53)
[2017-06-01] MEDS: DILTIAZEM CD 120 MG CAPSULE PO SCH ×2 (09:19→21:52)
[2017-06-01] MEDS: FAMOTIDINE 20 MG TABLET PO SCH ×2 (09:20→21:53)
[2017-06-01] MEDS: ASPIRIN CHEW 81 MG TABLET PO SCH (09:20)
[2017-06-01] MEDS: BISACODYL 5 MG TABLET PO SCH ×2 (09:20→21:53)
[2017-06-01] MEDS: ENOXAPARIN 40 MG/0.4 ML SYRINGE SUBCUT SCH (09:21)
[2017-06-01] MEDS: BUMETANIDE 1 MG/4 ML VIAL IV SCH ×2 (09:21→21:53)
[2017-06-01] MEDS: BACITRACIN OINT 0.9 GM PACK TOP SCH (09:34)
[2017-06-01] MEDS: CILOSTAZOL 100 MG TABLET PO SCH ×2 (09:35→21:52)
[2017-06-01] MEDS ORDERED: SODIUM POLYSTYRENE SULFATE 15 GM/60 ML BOTTLE PO STA (11:53)
[2017-06-01] MEDS: POLYETHYLENE GLYCOL POWDER 17 GM PACK PO PRN (17:13)
[2017-06-01] MEDS: ROSUVASTATIN 20 MG TABLET PO SCH (21:52)
[2017-06-02] MEDS: ALBUTEROL/IPRATROPIUM 3 ML NEB RESP TX SCH ×5 (02:41→19:21)
[2017-06-02 06:11] LABS: Hematocrit 29.1 VOL% (42.0-52.0); Hemoglobin 9.4 GM/DL (14.0-18.0); Immature Granulocytes % 1.1 %; Immature Granulocytes Absolute 0.09 #; Lymphocytes # 0.6 10*3/uL (1.4-4.0); Lymphocytes % 7.2 % (21.2-54.2); Mean Corpuscular HGB Conc 32.3 GM/DL (32-36); Mean Corpuscular Hemoglobin 28 PG (27-34); Mean Corpuscular Volume 86.4 FL (87-102); Mean Platelet Volume 11.1 FL (9.6-12.0); Monocytes # 0.2 10*3/uL (0.11-0.8); Monocytes % 2.4 % (1.7-12.7); Neutrophils # 7.1 10*3/uL (1.4-7.4); Neutrophils % 89.3 % (38.7-73.9); Platelet Count 216 T/CUMM (130-400); Red Blood Count 3.37 MC/CUMM (3.8-5.5); Red Cell Distribution Width 14.5 % (9.3-17.3); White Blood Count 7.9 T/CUMM (4-12)
[2017-06-02 06:44] LABS: Calcium 8.4 MG/DL (8.5-10.1); Potassium 4.6 MMOL/L (3.5-5.1)
[2017-06-02] MEDS: BUMETANIDE 1 MG/4 ML VIAL IV SCH (08:58)
[2017-06-02] MEDS: DILTIAZEM CD 120 MG CAPSULE PO SCH ×2 (08:59→21:09)
[2017-06-02] MEDS: CILOSTAZOL 100 MG TABLET PO SCH ×2 (08:59→21:09)
[2017-06-02] MEDS: BISACODYL 5 MG TABLET PO SCH (08:59)
[2017-06-02] MEDS: ENOXAPARIN 40 MG/0.4 ML SYRINGE SUBCUT SCH (08:59)
[2017-06-02] MEDS: ASPIRIN CHEW 81 MG TABLET PO SCH (08:59)
[2017-06-02] MEDS: METOPROLOL TARTRATE 100 MG TABLET PO SCH ×2 (09:00→21:09)
[2017-06-02] MEDS: methylPREDNISolone SOD SUC 40 MG/1 ML VIAL IV SCH ×2 (09:03→15:56)
[2017-06-02] MEDS: INSULIN LISPRO 100 UNIT/ML SUBCUT SCH ×4 (09:10→21:09)
[2017-06-02] MEDS: BACITRACIN OINT 0.9 GM PACK TOP SCH (09:11)
[2017-06-02] MEDS: FAMOTIDINE 20 MG TABLET PO SCH ×2 (09:11→21:09)
[2017-06-02] MEDS: POLYETHYLENE GLYCOL POWDER 17 GM PACK PO PRN (09:21)
[2017-06-02] MEDS: POLYETHYLENE GLYCOL POWDER 17 GM PACK PO SCH (13:27)
[2017-06-02] MEDS: BACITRACIN OINT 28.35 GM TUBE TOP SCH (15:56)
[2017-06-02] MEDS: ROSUVASTATIN 20 MG TABLET PO SCH (21:09)
[2017-06-03] MEDS: ALBUTEROL/IPRATROPIUM 3 ML NEB RESP TX SCH ×5 (00:15→14:12)
[2017-06-03] MEDS: methylPREDNISolone SOD SUC 40 MG/1 ML VIAL IV SCH ×3 (00:51→16:23)
[2017-06-03 01:54] LABS: Apearance,Urine CLEAR (Clear); Bilirubin,Urine Negative (Negative); Blood, Urine Negative (Negative); Glucose,Urine (UA) >=500 mg/dL (Negative); Ketones,Urine Negative (Negative); Nitrite,Urine Negative (Negative); Protein,Urine Negative; Urine Color Straw (Yellow); Urine Specific Gravity 1.011 (1.001-1.035); Urine Urobilinogen < 2.0 EU/DL (0.2-1.0); WBC,Urine <1 /HPF (0-6)
[2017-06-03 05:49] LABS: Hematocrit 29.4 VOL% (42.0-52.0); Hemoglobin 9.3 GM/DL (14.0-18.0); Immature Granulocytes % 1.3 %; Immature Granulocytes Absolute 0.09 #; Lymphocytes # 0.4 10*3/uL (1.4-4.0); Lymphocytes % 6.3 % (21.2-54.2); Mean Corpuscular HGB Conc 31.6 GM/DL (32-36); Mean Corpuscular Hemoglobin 27 PG (27-34); Mean Platelet Volume 10.8 FL (9.6-12.0); Monocytes # 0.2 10*3/uL (0.11-0.8); Monocytes % 2.3 % (1.7-12.7); Neutrophils # 6.3 10*3/uL (1.4-7.4); Neutrophils % 90.1 % (38.7-73.9); Platelet Count 209 T/CUMM (130-400); Red Blood Count 3.42 MC/CUMM (3.8-5.5); Red Cell Distribution Width 14.5 % (9.3-17.3); White Blood Count 6.9 T/CUMM (4-12)
[2017-06-03 06:20] LABS: Calcium 8.4 MG/DL (8.5-10.1); Potassium 4.7 MMOL/L (3.5-5.1)
[2017-06-03 08:09] LABS: Microalbum Ur Quant Random 5.6 MG/L (0-20); Microalbum/Creat Ratio Random 8.5 RATIO (0-30)
[2017-06-03] MEDS ORDERED: FUROSEMIDE 40 MG TABLET PO SCH (09:00)
[2017-06-03] MEDS: POLYETHYLENE GLYCOL POWDER 17 GM PACK PO SCH (10:48)
[2017-06-03] MEDS: INSULIN LISPRO 100 UNIT/ML SUBCUT SCH ×3 (10:52→16:23)
[2017-06-03] MEDS: ENOXAPARIN 40 MG/0.4 ML SYRINGE SUBCUT SCH (10:53)
[2017-06-03] MEDS: CILOSTAZOL 100 MG TABLET PO SCH (11:05)
[2017-06-03] MEDS: DILTIAZEM CD 120 MG CAPSULE PO SCH (11:05)
[2017-06-03] MEDS: FAMOTIDINE 20 MG TABLET PO SCH (11:07)
[2017-06-03] MEDS: ASPIRIN CHEW 81 MG TABLET PO SCH (11:07)
[2017-06-03] MEDS: METOPROLOL TARTRATE 100 MG TABLET PO SCH (11:07)
[2017-06-03] MEDS: BACITRACIN OINT 28.35 GM TUBE TOP SCH (11:08)
[2017-06-03] MEDS ORDERED: SODIUM PHOSPHATE ENEMA 133 ML BOTTLE RECTAL ONE (14:22)
[2017-06-03 16:35] VITALS: BP 135/67
== END 2017-06-03 18:48 | disposition home health service (06) | DRG 291 ==
LOC: EDUNIT# → EDBD → N.ED 00:37 → N.EDINP 03:02 → N.TELES 03:38
PROVIDERS: ADMIT Internal Medicine; ATTEND Internal Medicine

== ENCOUNTER 2017-06-26 10:00 | Inpatient (IN) ==
[2017-06-26] MEDS ORDERED: ALBUTEROL/IPRATROPIUM 3 ML NEB RESP TX STA ×2 (10:46→11:01)
[2017-06-26] MEDS ORDERED: MAGNESIUM SULF RIDER 2 GM in PREMIX 1 EACH IV STA (10:46)
[2017-06-26 10:55] LABS: Basophils % 0.5 % (0.0-0.8); Eosinophils % 0.9 % (0.00-10.9); Hematocrit 32.9 VOL% (42.0-52.0); Hemoglobin 10.2 GM/DL (14.0-18.0); Immature Granulocytes % 0.2 %; Immature Granulocytes Absolute 0.01 #; Lymphocytes # 0.5 10*3/uL (1.4-4.0); Lymphocytes % 11.8 % (21.2-54.2); Mean Corpuscular Hemoglobin 28 PG (27-34); Mean Corpuscular Volume 89.6 FL (87-102); Mean Platelet Volume 10.4 FL (9.6-12.0); Monocytes # 0.7 10*3/uL (0.11-0.8); Monocytes % 15.2 % (1.7-12.7); Neutrophils # 3.2 10*3/uL (1.4-7.4); Neutrophils % 71.4 % (38.7-73.9); Platelet Count 102 T/CUMM (130-400); Red Blood Count 3.67 MC/CUMM (3.8-5.5); Red Cell Distribution Width 13.9 % (9.3-17.3); White Blood Count 4.4 T/CUMM (4-12)
[2017-06-26 11:04] LABS: INR 0.9; PT Patient Result 9.9 SECS
[2017-06-26] MEDS ORDERED: MAGNESIUM SULF RIDER 50 ML IV ONE (11:04)
[2017-06-26 11:17] LABS: ABG Base Excess 6.5 MMOL/L (-2.5-2.5); ABG HCO3 30.4 MMOL/L (20-26); ABG Oxygen Saturation 99.2 % (95-100); ABG PCO2 54.5 MM HG (35-48); ABG PH 7.389 (7.35-7.45); ABG TCO2 29.9 MMOL/L (23-27); Allen Test Positive
[2017-06-26 11:28] LABS: Albumin 4.3 G/DL (3.4-5.0); Bilirubin,Total 0.7 MG/DL (0.2-1.0); Calcium 9.1 MG/DL (8.5-10.1); Osmolality,Calculated 267.5 MOS/KG (273-304); Total Protein 7.6 G/DL (6.4-8.3); Troponin I Only 0.028 NG/ML (0.00-0.045)
[2017-06-26 11:30] LABS: Potassium 6.2 MMOL/L (3.5-5.1)
[2017-06-26] MEDS ORDERED: cefTRIAXone 1,000 MG in SODIUM CHLORIDE 0.9% 100 ML IV STA (11:53)
[2017-06-26] MEDS ORDERED: OSELTAMIVIR 75 MG CAPSULE PO ONE (11:56)
[2017-06-26] MEDS ORDERED: OSELTAMIVIR 75 MG CAPSULE PO SCH (12:00)
[2017-06-26] MEDS ORDERED: ONDANSETRON 4 MG/2 ML VIAL IV PRN (12:12)
[2017-06-26] MEDS ORDERED: cefTRIAXone 1,000 MG VIAL ONE (12:18)
[2017-06-26] MEDS ORDERED: SODIUM POLYSTYRENE SULFATE 15 GM/60 ML BOTTLE PO STA (12:19)
[2017-06-26] MEDS ORDERED: SODIUM CHLORIDE 0.9% 2,150 ML IV ONE (12:19)
[2017-06-26] MEDS ORDERED: OSELTAMIVIR 75 MG CAPSULE ONE (12:19)
[2017-06-26] MEDS ORDERED: NITROGLYCERIN SL 0.4 MG TABLET SL PRN (12:24)
[2017-06-26] MEDS ORDERED: POLYETHYLENE GLYCOL POWDER 255 GM BOTTLE PO PRN (12:24)
[2017-06-26] MEDS ORDERED: clonazePAM 0.5 MG TABLET PO PRN (12:24)
[2017-06-26] MEDS ORDERED: ALBUTEROL 2.5 MG/3 ML NEB RESP TX PRN (12:24)
[2017-06-26] MEDS ORDERED: GLUCAGON 1 MG VIAL IM PRN (12:26)
[2017-06-26] MEDS ORDERED: DEXTROSE 50% 25 GM/50 ML VIAL IV PRN (12:26)
[2017-06-26] MEDS ORDERED: SODIUM POLYSTYRENE SULFATE 15 GM/60 ML BOTTLE ONE ×2 (12:39→12:43)
[2017-06-26 13:03] LABS: Hypochromasia 1+; Platelet Estimate Decreased; Target Cells Slight
[2017-06-26] MEDS ORDERED: AZITHROMYCIN INJ 500 MG in SODIUM CHLORIDE 0.9% 250 ML IV SCH (14:00)
[2017-06-26] MEDS ORDERED: ENOXAPARIN 80 MG/0.8 ML SYRINGE SUBCUT SCH (14:00)
[2017-06-26] MEDS: ALBUTEROL/IPRATROPIUM 3 ML NEB RESP TX SCH ×2 (14:54→20:01)
[2017-06-26] MEDS: INSULIN LISPRO 100 UNIT/ML SUBCUT SCH ×2 (17:43→22:55)
[2017-06-26] MEDS ORDERED: ACETAMINOPHEN 325 MG TABLET PO PRN (19:59)
[2017-06-26] MEDS ORDERED: INSULIN REGULAR 100 UNIT/ML ONE (20:59)
[2017-06-26] MEDS ORDERED: PROPOFOL 1,000 MG/100 ML BOTTLE IV ONE (21:13)
[2017-06-26] MEDS: PROPOFOL 1,000 MG/100 ML BOTTLE IV SCH (21:30)
[2017-06-26] MEDS ORDERED: ALBUTEROL/IPRATROPIUM 3 ML NEB RESP TX PRN (21:31)
[2017-06-26] MEDS ORDERED: SODIUM CHLORIDE 0.9% 1,000 ML IV ONE (21:35)
[2017-06-26 21:44] LABS: ABG Oxygen Saturation 98.5 % (95-100); ABG PH 7.231 (7.35-7.45); ABG TCO2 32.8 MMOL/L (23-27)
[2017-06-26] MEDS ORDERED: PHENYLEPHRINE DRIP 40 MG/250 ML PREMIX IV ONE (21:44)
[2017-06-26 21:47] LABS: ABG PCO2 84.1 MM HG (35-48)
[2017-06-26] MEDS: PHENYLEPHRINE DRIP 40 MG/250 ML PREMIX IV SCH (21:48)
[2017-06-26 21:51] LABS: Basophils % 0.2 % (0.0-0.8); Hematocrit 32.3 VOL% (42.0-52.0); Immature Granulocytes % 0.6 %; Immature Granulocytes Absolute 0.03 #; Lymphocytes # 1.8 10*3/uL (1.4-4.0); Lymphocytes % 38.3 % (21.2-54.2); Mean Corpuscular Hemoglobin 28 PG (27-34); Mean Corpuscular Volume 89.7 FL (87-102); Mean Platelet Volume 10.4 FL (9.6-12.0); Monocytes # 0.4 10*3/uL (0.11-0.8); Monocytes % 7.5 % (1.7-12.7); Neutrophils # 2.6 10*3/uL (1.4-7.4); Neutrophils % 53.4 % (38.7-73.9); Platelet Count 168 T/CUMM (130-400); White Blood Count 4.8 T/CUMM (4-12)
[2017-06-26 22:17] LABS: Lactic Acid 2.8 MMOL/L (0.4-2.0)
[2017-06-26 22:28] LABS: Alanine Aminotransferase 175 U/L (16-61); Albumin 3.1 G/DL (3.4-5.0); Alkaline Phosphatase 179 U/L (45-117); Aspartate Amino Transferase 438 U/L (0-37); Blood Urea Nitrogen 22 MG/DL (7-18); Calcium 9.5 MG/DL (8.5-10.1); Glucose 255 MG/DL (74-106); Osmolality,Calculated 284.8 MOS/KG (273-304); Potassium 4.6 MMOL/L (3.5-5.1); Sodium 137 MMOL/L (136-145); Total Protein 6.3 G/DL (6.4-8.3)
[2017-06-26] MEDS: DILTIAZEM CD 120 MG CAPSULE PO SCH (22:54)
[2017-06-26] MEDS: ROSUVASTATIN 20 MG TABLET PO SCH (22:55)
[2017-06-26] MEDS: OSELTAMIVIR 30 MG CAPSULE PO SCH (22:55)
[2017-06-26] MEDS: CILOSTAZOL 100 MG TABLET PO SCH (22:55)
[2017-06-26] MEDS: FAMOTIDINE 20 MG TABLET PO SCH (22:55)
[2017-06-26] MEDS: METOPROLOL TARTRATE 50 MG TABLET PO SCH (22:55)
[2017-06-26] MEDS: HYDROCORTISONE 100 MG VIAL IV SCH (23:21)
[2017-06-26] MEDS: PIPERACILLIN/TAZOBACTAM 3,375 MG in SODIUM CHLORIDE 0.9% 100 ML IV SCH (23:25)
[2017-06-27] MEDS: fentaNYL INJ 1,250 MCG in SODIUM CHLORIDE 0.9% 225 ML IV SCH ×3 (00:03→22:13)
[2017-06-27] MEDS: ALBUTEROL/IPRATROPIUM 3 ML NEB RESP TX SCH ×5 (00:07→19:35)
[2017-06-27] MEDS: SODIUM CHLORIDE 0.9% 1,000 ML IV SCH ×3 (00:13→21:00)
[2017-06-27 00:20] LABS: ABG Base Excess 7.6 MMOL/L (-2.5-2.5); ABG HCO3 31.5 MMOL/L (20-26); ABG PCO2 52.6 MM HG (35-48); ABG PH 7.419 (7.35-7.45); ABG TCO2 29.1 MMOL/L (23-27)
[2017-06-27 00:21] LABS: ABG Oxygen Saturation 99.8 % (95-100)
[2017-06-27 01:37] LABS: Basophils % 0.4 % (0.0-0.8); Hematocrit 29.9 VOL% (42.0-52.0); Hemoglobin 9.4 GM/DL (14.0-18.0); Immature Granulocytes % 0.4 %; Immature Granulocytes Absolute 0.02 #; Lymphocytes # 0.5 10*3/uL (1.4-4.0); Lymphocytes % 9.7 % (21.2-54.2); Mean Corpuscular HGB Conc 31.4 GM/DL (32-36); Mean Corpuscular Hemoglobin 27 PG (27-34); Mean Corpuscular Volume 87.2 FL (87-102); Mean Platelet Volume 10.4 FL (9.6-12.0); Monocytes # 0.4 10*3/uL (0.11-0.8); Monocytes % 8.2 % (1.7-12.7); Neutrophils # 4.3 10*3/uL (1.4-7.4); Neutrophils % 81.3 % (38.7-73.9); Platelet Count 192 T/CUMM (130-400); Red Blood Count 3.43 MC/CUMM (3.8-5.5); Red Cell Distribution Width 14.2 % (9.3-17.3); White Blood Count 5.2 T/CUMM (4-12)
[2017-06-27 02:07] LABS: Calcium 8.9 MG/DL (8.5-10.1); Osmolality,Calculated 279.8 MOS/KG (273-304); Potassium 4.5 MMOL/L (3.5-5.1)
[2017-06-27] MEDS: PROPOFOL 1,000 MG/100 ML BOTTLE IV SCH ×4 (02:23→22:13)
[2017-06-27] MEDS: ENOXAPARIN 80 MG/0.8 ML SYRINGE SUBCUT SCH ×2 (02:24→14:14)
[2017-06-27] MEDS: VANCOMYCIN INJ 1,000 MG in SODIUM CHLORIDE 0.9% 250 ML IV SCH (03:54)
[2017-06-27] MEDS: HYDROCORTISONE 100 MG VIAL IV SCH (03:57)
[2017-06-27 04:18] LABS: ABG Base Excess 6.6 MMOL/L (-2.5-2.5); ABG HCO3 30.4 MMOL/L (20-26); ABG Oxygen Saturation 96.2 % (95-100); ABG PCO2 42.2 MM HG (35-48); ABG PH 7.473 (7.35-7.45); ABG PO2 76.2 MM HG (80-95); ABG TCO2 27.7 MMOL/L (23-27)
[2017-06-27] MEDS: PHENYLEPHRINE DRIP 40 MG/250 ML PREMIX IV SCH ×2 (04:53→22:14)
[2017-06-27 05:03] LABS: Apearance,Urine CLEAR (Clear); Bilirubin,Urine Negative (Negative); Blood, Urine Small mg/dL (Negative); Glucose,Urine (UA) >=500 mg/dL (Negative); Ketones,Urine Negative (Negative); Nitrite,Urine Negative (Negative); Protein,Urine 100 MG/DL; RBC,Urine 6 /HPF (0-4); Sperm,Urine Moderate /HPF (Negative); Urine Color Straw (Yellow); Urine Specific Gravity 1.005 (1.001-1.035); Urine Urobilinogen < 2.0 EU/DL (0.2-1.0); WBC,Urine 2 /HPF (0-6)
[2017-06-27] MEDS: PIPERACILLIN/TAZOBACTAM 3,375 MG in SODIUM CHLORIDE 0.9% 100 ML IV SCH ×3 (06:31→22:40)
[2017-06-27] MEDS: INSULIN LISPRO 100 UNIT/ML SUBCUT SCH ×3 (08:14→18:28)
[2017-06-27] MEDS ORDERED: PANTOPRAZOLE 40 MG TABLET PO SCH (09:00)
[2017-06-27] MEDS: CILOSTAZOL 100 MG TABLET PO SCH ×2 (09:47→22:06)
[2017-06-27] MEDS: OSELTAMIVIR 30 MG CAPSULE PO SCH ×2 (09:47→22:06)
[2017-06-27] MEDS: METOPROLOL TARTRATE 50 MG TABLET PO SCH ×2 (09:47→22:06)
[2017-06-27] MEDS: DILTIAZEM CD 120 MG CAPSULE PO SCH ×2 (09:48→21:36)
[2017-06-27] MEDS: FUROSEMIDE 40 MG TABLET PO SCH (09:48)
[2017-06-27] MEDS: ASPIRIN CHEW 81 MG TABLET PO SCH (09:48)
[2017-06-27] MEDS: FAMOTIDINE 20 MG TABLET PO SCH ×2 (09:48→22:06)
[2017-06-27] MEDS: methylPREDNISolone SOD SUC 40 MG/1 ML VIAL IV SCH ×3 (09:49→22:00)
[2017-06-27] MEDS ORDERED: LANSOPRAZOLE ODT 30 MG TABLET NG SCH (10:00)
[2017-06-27] MEDS: BACITRACIN OINT 28.35 GM TUBE TOP SCH (11:41)
[2017-06-27] MEDS ORDERED: cefTRIAXone 1,000 MG in SYRINGE 1 EACH IV SCH (12:00)
[2017-06-27] MEDS: ROSUVASTATIN 20 MG TABLET PO SCH (22:05)
[2017-06-28] MEDS: INSULIN LISPRO 100 UNIT/ML SUBCUT SCH ×4 (00:12→18:08)
[2017-06-28] MEDS: ALBUTEROL/IPRATROPIUM 3 ML NEB RESP TX SCH ×7 (00:29→19:23)
[2017-06-28] MEDS: methylPREDNISolone SOD SUC 40 MG/1 ML VIAL IV SCH ×4 (03:00→20:59)
[2017-06-28] MEDS: ENOXAPARIN 80 MG/0.8 ML SYRINGE SUBCUT SCH ×2 (03:00→14:36)
[2017-06-28] MEDS: VANCOMYCIN INJ 1,000 MG in SODIUM CHLORIDE 0.9% 250 ML IV SCH (03:06)
[2017-06-28] MEDS: PROPOFOL 1,000 MG/100 ML BOTTLE IV SCH ×2 (05:05→22:45)
[2017-06-28 05:12] LABS: ABG Base Excess -0.5 MMOL/L (-2.5-2.5); ABG Oxygen Saturation 97.9 % (95-100); ABG PCO2 45.3 MM HG (35-48); ABG PH 7.352 (7.35-7.45); ABG TCO2 23.3 MMOL/L (23-27)
[2017-06-28 06:03] LABS: Calcium 7.3 MG/DL (8.5-10.1); Osmolality,Calculated 278.4 MOS/KG (273-304); Potassium 3.8 MMOL/L (3.5-5.1)
[2017-06-28] MEDS: SODIUM CHLORIDE 0.9% 1,000 ML IV SCH ×2 (07:06→17:11)
[2017-06-28] MEDS: PIPERACILLIN/TAZOBACTAM 3,375 MG in SODIUM CHLORIDE 0.9% 100 ML IV SCH ×3 (07:08→22:50)
[2017-06-28] MEDS: FUROSEMIDE 40 MG TABLET PO SCH (09:24)
[2017-06-28] MEDS: CILOSTAZOL 100 MG TABLET PO SCH ×2 (09:24→21:02)
[2017-06-28] MEDS: ASPIRIN CHEW 81 MG TABLET PO SCH (09:24)
[2017-06-28] MEDS: FAMOTIDINE 20 MG TABLET PO SCH (09:24)
[2017-06-28] MEDS: DILTIAZEM CD 120 MG CAPSULE PO SCH (09:24)
[2017-06-28] MEDS: BACITRACIN OINT 28.35 GM TUBE TOP SCH (09:25)
[2017-06-28] MEDS: METOPROLOL TARTRATE 50 MG TABLET PO SCH ×2 (09:28→21:02)
[2017-06-28] MEDS: OSELTAMIVIR 30 MG CAPSULE PO SCH ×2 (09:35→21:02)
[2017-06-28] MEDS: SKIN HEALING OINT (AQUAPHOR) 50 GM TUBE TOP PRN (09:39)
[2017-06-28] MEDS: ROSUVASTATIN 20 MG TABLET PO SCH (21:02)
[2017-06-28] MEDS: DILTIAZEM 60 MG TABLET PO SCH (21:02)
[2017-06-28] MEDS: fentaNYL INJ 1,250 MCG in SODIUM CHLORIDE 0.9% 225 ML IV SCH (22:45)
[2017-06-29] MEDS: INSULIN LISPRO 100 UNIT/ML SUBCUT SCH ×4 (00:19→18:25)
[2017-06-29] MEDS: ALBUTEROL/IPRATROPIUM 3 ML NEB RESP TX SCH ×4 (00:41→19:51)
[2017-06-29] MEDS: methylPREDNISolone SOD SUC 40 MG/1 ML VIAL IV SCH ×4 (02:35→23:40)
[2017-06-29] MEDS: DILTIAZEM 60 MG TABLET PO SCH ×5 (02:39→23:39)
[2017-06-29] MEDS: VANCOMYCIN INJ 1,000 MG in SODIUM CHLORIDE 0.9% 250 ML IV SCH (02:39)
[2017-06-29] MEDS: SODIUM CHLORIDE 0.9% 1,000 ML IV SCH ×3 (02:40→22:01)
[2017-06-29] MEDS: ENOXAPARIN 80 MG/0.8 ML SYRINGE SUBCUT SCH ×2 (02:45→13:11)
[2017-06-29 05:23] LABS: ABG Base Excess -2.4 MMOL/L (-2.5-2.5); ABG HCO3 22.4 MMOL/L (20-26); ABG Oxygen Saturation 98.2 % (95-100); ABG PCO2 50.6 MM HG (35-48); ABG PH 7.292 (7.35-7.45); ABG TCO2 22.8 MMOL/L (23-27)
[2017-06-29 05:24] LABS: Hematocrit 26.4 VOL% (42.0-52.0); Hemoglobin 8.4 GM/DL (14.0-18.0); Immature Granulocytes Absolute 0.12 #; Lymphocytes # 0.4 10*3/uL (1.4-4.0); Lymphocytes % 5.8 % (21.2-54.2); Mean Corpuscular HGB Conc 31.8 GM/DL (32-36); Mean Corpuscular Hemoglobin 28 PG (27-34); Mean Platelet Volume 10.6 FL (9.6-12.0); Monocytes # 0.3 10*3/uL (0.11-0.8); Monocytes % 5.3 % (1.7-12.7); Neutrophils # 5.3 10*3/uL (1.4-7.4); Neutrophils % 86.9 % (38.7-73.9); Platelet Count 207 T/CUMM (130-400); Red Cell Distribution Width 14.2 % (9.3-17.3)
[2017-06-29 05:51] LABS: Albumin 2.5 G/DL (3.4-5.0); Calcium 7.2 MG/DL (8.5-10.1); Osmolality,Calculated 298.3 MOS/KG (273-304)
[2017-06-29 05:54] LABS: Hypochromasia 1+; Microcytosis Slight
[2017-06-29 05:55] LABS: Ovalocytes Slight; Platelet Estimate Normal; Prealbumin 12.6 MG/DL (20-40); Tear Drop Cells Slight
[2017-06-29] MEDS: PIPERACILLIN/TAZOBACTAM 3,375 MG in SODIUM CHLORIDE 0.9% 100 ML IV SCH ×2 (06:00→13:11)
[2017-06-29] MEDS: fentaNYL INJ 1,250 MCG in SODIUM CHLORIDE 0.9% 225 ML IV SCH ×2 (07:04→23:31)
[2017-06-29] MEDS ORDERED: PHENYLEPHRINE DRIP 40 MG/250 ML PREMIX IV ONE (07:19)
[2017-06-29] MEDS: PHENYLEPHRINE DRIP 40 MG/250 ML PREMIX IV SCH (07:25)
[2017-06-29] MEDS ORDERED: LIDOCAINE 1% 20 ML VIAL MISC INJ ONE (07:30)
[2017-06-29] MEDS: CILOSTAZOL 100 MG TABLET PO SCH ×2 (08:09→23:41)
[2017-06-29] MEDS: ASPIRIN CHEW 81 MG TABLET PO SCH (08:09)
[2017-06-29] MEDS: FAMOTIDINE 20 MG TABLET PO SCH (08:09)
[2017-06-29] MEDS: OSELTAMIVIR 30 MG CAPSULE PO SCH ×2 (08:09→23:41)
[2017-06-29] MEDS: FUROSEMIDE 40 MG TABLET PO SCH (08:09)
[2017-06-29] MEDS: BACITRACIN OINT 28.35 GM TUBE TOP SCH (08:10)
[2017-06-29] MEDS: METOPROLOL TARTRATE 50 MG TABLET PO SCH ×2 (09:37→23:40)
[2017-06-29] MEDS: PROPOFOL 1,000 MG/100 ML BOTTLE IV SCH ×2 (14:08→23:43)
[2017-06-29] MEDS ORDERED: SODIUM CHLORIDE 0.9% 500 ML IV ONE (14:22)
[2017-06-29] MEDS: ROSUVASTATIN 20 MG TABLET PO SCH (23:41)
[2017-06-29] MEDS: METOCLOPRAMIDE 5 MG TABLET PO SCH (23:48)
[2017-06-30] MEDS: INSULIN LISPRO 100 UNIT/ML SUBCUT SCH ×4 (01:44→17:26)
[2017-06-30] MEDS: PIPERACILLIN/TAZOBACTAM 3,375 MG in SODIUM CHLORIDE 0.9% 100 ML IV SCH ×4 (01:44→22:55)
[2017-06-30] MEDS: ALBUTEROL/IPRATROPIUM 3 ML NEB RESP TX SCH ×4 (01:45→19:50)
[2017-06-30] MEDS: ENOXAPARIN 80 MG/0.8 ML SYRINGE SUBCUT SCH (02:46)
[2017-06-30] MEDS: DILTIAZEM 60 MG TABLET PO SCH ×4 (02:47→20:57)
[2017-06-30] MEDS: methylPREDNISolone SOD SUC 40 MG/1 ML VIAL IV SCH ×4 (02:47→21:07)
[2017-06-30 02:51] LABS: ABG Base Excess -5.8 MMOL/L (-2.5-2.5); ABG HCO3 19.6 MMOL/L (20-26); ABG Oxygen Saturation 96.3 % (95-100); ABG PCO2 46.7 MM HG (35-48); ABG PH 7.264 (7.35-7.45); ABG PO2 94.1 MM HG (80-95); ABG TCO2 19.7 MMOL/L (23-27)
[2017-06-30 03:02] LABS: Hemoglobin 7.6 GM/DL (14.0-18.0); Immature Granulocytes % 0.9 %; Immature Granulocytes Absolute 0.05 #; Lymphocytes # 0.5 10*3/uL (1.4-4.0); Lymphocytes % 9.4 % (21.2-54.2); Mean Corpuscular HGB Conc 30.4 GM/DL (32-36); Mean Corpuscular Hemoglobin 28 PG (27-34); Mean Corpuscular Volume 91.2 FL (87-102); Mean Platelet Volume 10.6 FL (9.6-12.0); Monocytes # 0.5 10*3/uL (0.11-0.8); Monocytes % 8.5 % (1.7-12.7); NRBC # 0.02 10*3/uL; Neutrophils # 4.6 10*3/uL (1.4-7.4); Neutrophils % 81.2 % (38.7-73.9); Platelet Count 198 T/CUMM (130-400); Red Blood Count 2.74 MC/CUMM (3.8-5.5); Red Cell Distribution Width 14.6 % (9.3-17.3); White Blood Count 5.6 T/CUMM (4-12)
[2017-06-30 03:34] LABS: Calcium 6.6 MG/DL (8.5-10.1); Osmolality,Calculated 305.1 MOS/KG (273-304); Potassium 4.2 MMOL/L (3.5-5.1)
[2017-06-30] MEDS: VANCOMYCIN INJ 1,000 MG in SODIUM CHLORIDE 0.9% 250 ML IV SCH (04:00)
[2017-06-30] MEDS: PHENYLEPHRINE DRIP 40 MG/250 ML PREMIX IV SCH ×2 (06:01→15:27)
[2017-06-30] MEDS: METOCLOPRAMIDE 5 MG TABLET PO SCH ×3 (07:12→17:26)
[2017-06-30] MEDS: ASPIRIN CHEW 81 MG TABLET PO SCH (08:28)
[2017-06-30] MEDS: CILOSTAZOL 100 MG TABLET PO SCH ×2 (08:28→21:07)
[2017-06-30] MEDS: OSELTAMIVIR 30 MG CAPSULE PO SCH ×2 (08:28→21:07)
[2017-06-30] MEDS: FAMOTIDINE 20 MG TABLET PO SCH (08:28)
[2017-06-30] MEDS: BACITRACIN OINT 28.35 GM TUBE TOP SCH (08:29)
[2017-06-30] MEDS: SODIUM CHLORIDE 0.9% 1,000 ML IV SCH (09:05)
[2017-06-30] MEDS: METOPROLOL TARTRATE 50 MG TABLET PO SCH ×2 (09:05→21:00)
[2017-06-30] MEDS: PROPOFOL 1,000 MG/100 ML BOTTLE IV SCH (14:05)
[2017-06-30] MEDS: SODIUM BICARB INJ 100 MEQ in DEXTROSE 5% 1,000 ML IV SCH (15:06)
[2017-06-30] MEDS: fentaNYL INJ 1,250 MCG in SODIUM CHLORIDE 0.9% 225 ML IV SCH (20:48)
[2017-06-30] MEDS ORDERED: METOCLOPRAMIDE 10 MG/2 ML VIAL IM SCH (21:00)
[2017-06-30] MEDS: ROSUVASTATIN 20 MG TABLET PO SCH (21:07)
[2017-07-01] MEDS: METOCLOPRAMIDE 5 MG TABLET PO SCH ×4 (00:08→18:00)
[2017-07-01] MEDS: INSULIN LISPRO 100 UNIT/ML SUBCUT SCH ×4 (00:08→18:00)
[2017-07-01] MEDS: PROPOFOL 1,000 MG/100 ML BOTTLE IV SCH ×4 (00:59→23:53)
[2017-07-01] MEDS: PHENYLEPHRINE DRIP 40 MG/250 ML PREMIX IV SCH ×3 (01:00→23:52)
[2017-07-01] MEDS: ALBUTEROL/IPRATROPIUM 3 ML NEB RESP TX SCH ×4 (01:04→18:07)
[2017-07-01] MEDS: SODIUM BICARB INJ 100 MEQ in DEXTROSE 5% 1,000 ML IV SCH (02:12)
[2017-07-01] MEDS: DILTIAZEM 60 MG TABLET PO SCH ×4 (02:57→21:40)
[2017-07-01] MEDS: methylPREDNISolone SOD SUC 40 MG/1 ML VIAL IV SCH ×4 (03:03→21:41)
[2017-07-01 04:20] LABS: ABG Base Excess -1.1 MMOL/L (-2.5-2.5); ABG HCO3 24.4 MMOL/L (20-26); ABG Oxygen Saturation 96.9 % (95-100); ABG PCO2 44.3 MM HG (35-48); ABG PH 7.358 (7.35-7.45); ABG PO2 103.5 MM HG (80-95); ABG TCO2 25.7 MMOL/L (23-27)
[2017-07-01 04:28] LABS: Hematocrit 19.6 VOL% (42.0-52.0); Immature Granulocytes % 2.4 %; Immature Granulocytes Absolute 0.19 #; Lymphocytes # 0.6 10*3/uL (1.4-4.0); Mean Corpuscular HGB Conc 31.1 GM/DL (32-36); Mean Corpuscular Hemoglobin 28 PG (27-34); Mean Corpuscular Volume 89.5 FL (87-102); Mean Platelet Volume 10.2 FL (9.6-12.0); Monocytes # 0.8 10*3/uL (0.11-0.8); Monocytes % 10.4 % (1.7-12.7); NRBC # 0.09 10*3/uL; Neutrophils # 6.3 10*3/uL (1.4-7.4); Neutrophils % 80.2 % (38.7-73.9); Platelet Count 206 T/CUMM (130-400); Red Blood Count 2.19 MC/CUMM (3.8-5.5); Red Cell Distribution Width 14.5 % (9.3-17.3); White Blood Count 7.9 T/CUMM (4-12)
[2017-07-01 04:35] LABS: Hemoglobin 6.1 GM/DL (14.0-18.0)
[2017-07-01 04:56] LABS: Alanine Aminotransferase 82 U/L (16-61); Albumin 2.7 G/DL (3.4-5.0); Alkaline Phosphatase 70 U/L (45-117); Aspartate Amino Transferase 196 U/L (0-37); Bilirubin,Total < 0.39 MG/DL (0.2-1.0); Blood Urea Nitrogen 63 MG/DL (7-18); Calcium 6.5 MG/DL (8.5-10.1); Glucose 236 MG/DL (74-106); Osmolality,Calculated 306.3 MOS/KG (273-304); Potassium 3.6 MMOL/L (3.5-5.1); Sodium 141 MMOL/L (136-145)
[2017-07-01 05:07] LABS: Band Neutrophils 1 % (0-10); Giant Platelets Few; Hypochromasia 1+; Lymphocytes 9 % (20-55); Microcytosis Slight; Nucleated Red Blood Cells 2 (0-5); Platelet Estimate Adequate; Segmented Neutrophils 83 % (50-85); Total Cells Counted 100
[2017-07-01] MEDS: ENOXAPARIN 80 MG/0.8 ML SYRINGE SUBCUT SCH (05:41)
[2017-07-01 06:19] LABS: Basophils % 0.1 % (0.0-0.8); Immature Granulocytes % 2.9 %; Immature Granulocytes Absolute 0.31 #; Lymphocytes # 1.2 10*3/uL (1.4-4.0); Mean Corpuscular HGB Conc 31.3 GM/DL (32-36); Mean Corpuscular Hemoglobin 28 PG (27-34); Mean Corpuscular Volume 90.6 FL (87-102); Mean Platelet Volume 10.4 FL (9.6-12.0); Monocytes # 1.4 10*3/uL (0.11-0.8); Monocytes % 13.1 % (1.7-12.7); NRBC # 0.13 10*3/uL; Neutrophils # 7.8 10*3/uL (1.4-7.4); Neutrophils % 72.9 % (38.7-73.9); Platelet Count 207 T/CUMM (130-400); Red Blood Count 2.65 MC/CUMM (3.8-5.5); Red Cell Distribution Width 14.6 % (9.3-17.3); White Blood Count 10.7 T/CUMM (4-12)
[2017-07-01 06:21] LABS: Hemoglobin 7.5 GM/DL (14.0-18.0)
[2017-07-01] MEDS: PIPERACILLIN/TAZOBACTAM 3,375 MG in SODIUM CHLORIDE 0.9% 100 ML IV SCH ×3 (06:24→21:47)
[2017-07-01] MEDS: fentaNYL INJ 1,250 MCG in SODIUM CHLORIDE 0.9% 225 ML IV SCH ×2 (06:28→21:46)
[2017-07-01 06:29] LABS: Hypochromasia 1+
[2017-07-01 06:30] LABS: Microcytosis 1+; Ovalocytes Slight; Platelet Estimate Normal; Tear Drop Cells Slight
[2017-07-01] MEDS ORDERED: POTASSIUM CHLORIDE RIDER 10 MEQ in PREMIX 1 EACH IV PRN (08:56)
[2017-07-01] MEDS: FAMOTIDINE 20 MG TABLET PO SCH (09:15)
[2017-07-01] MEDS: ASPIRIN CHEW 81 MG TABLET PO SCH (09:15)
[2017-07-01] MEDS: CILOSTAZOL 100 MG TABLET PO SCH ×2 (09:15→21:41)
[2017-07-01] MEDS: OSELTAMIVIR 30 MG CAPSULE PO SCH ×2 (09:15→21:41)
[2017-07-01] MEDS: DEXTROSE 5% NACL 0.45% 1,000 ML IV SCH ×2 (09:15→21:51)
[2017-07-01] MEDS: BACITRACIN OINT 28.35 GM TUBE TOP SCH (09:15)
[2017-07-01] MEDS: METOPROLOL TARTRATE 50 MG TABLET PO SCH ×2 (09:15→21:40)
[2017-07-01] MEDS: ROSUVASTATIN 20 MG TABLET PO SCH (21:40)
[2017-07-02] MEDS: METOCLOPRAMIDE 5 MG TABLET PO SCH ×4 (00:01→18:10)
[2017-07-02] MEDS: INSULIN LISPRO 100 UNIT/ML SUBCUT SCH ×4 (00:01→18:05)
[2017-07-02] MEDS: ALBUTEROL/IPRATROPIUM 3 ML NEB RESP TX SCH ×4 (00:11→19:35)
[2017-07-02] MEDS: DILTIAZEM 60 MG TABLET PO SCH ×4 (02:21→22:21)
[2017-07-02] MEDS: methylPREDNISolone SOD SUC 40 MG/1 ML VIAL IV SCH ×4 (02:21→21:28)
[2017-07-02] MEDS: PROPOFOL 1,000 MG/100 ML BOTTLE IV SCH ×2 (02:27→17:10)
[2017-07-02 03:05] LABS: ABG Base Excess -0.4 MMOL/L (-2.5-2.5); ABG HCO3 24.1 MMOL/L (20-26); ABG Oxygen Saturation 97.8 % (95-100); ABG PH 7.327 (7.35-7.45); ABG PO2 92.2 MM HG (80-95); ABG TCO2 24.8 MMOL/L (23-27)
[2017-07-02 05:32] LABS: Calcium 6.6 MG/DL (8.5-10.1); Osmolality,Calculated 302.1 MOS/KG (273-304); Potassium 4.2 MMOL/L (3.5-5.1)
[2017-07-02 06:23] LABS: Basophils % 0.1 % (0.0-0.8); Hematocrit 17.2 VOL% (42.0-52.0); Immature Granulocytes % 5.4 %; Immature Granulocytes Absolute 0.37 #; Lymphocytes # 0.7 10*3/uL (1.4-4.0); Lymphocytes % 10.7 % (21.2-54.2); Mean Corpuscular HGB Conc 30.8 GM/DL (32-36); Mean Corpuscular Hemoglobin 28 PG (27-34); Mean Platelet Volume 10.2 FL (9.6-12.0); Monocytes # 0.6 10*3/uL (0.11-0.8); Monocytes % 9.3 % (1.7-12.7); NRBC # 0.16 10*3/uL; Neutrophils # 5.1 10*3/uL (1.4-7.4); Neutrophils % 74.5 % (38.7-73.9); Platelet Count 181 T/CUMM (130-400); Red Blood Count 1.89 MC/CUMM (3.8-5.5); Red Cell Distribution Width 14.5 % (9.3-17.3); White Blood Count 6.9 T/CUMM (4-12)
[2017-07-02 06:24] LABS: Hemoglobin 5.3 GM/DL (14.0-18.0)
[2017-07-02] MEDS: PIPERACILLIN/TAZOBACTAM 3,375 MG in SODIUM CHLORIDE 0.9% 100 ML IV SCH ×3 (06:25→21:31)
[2017-07-02] MEDS: ENOXAPARIN 80 MG/0.8 ML SYRINGE SUBCUT SCH (06:29)
[2017-07-02 06:31] LABS: Basophils % 0.1 % (0.0-0.8); Hematocrit 20.3 VOL% (42.0-52.0); Hemoglobin 6.7 GM/DL (14.0-18.0); Immature Granulocytes % 4.7 %; Immature Granulocytes Absolute 0.43 #; Lymphocytes % 11.4 % (21.2-54.2); Mean Corpuscular Hemoglobin 29 PG (27-34); Mean Corpuscular Volume 86.4 FL (87-102); Mean Platelet Volume 10.7 FL (9.6-12.0); Monocytes % 11.2 % (1.7-12.7); NRBC # 0.29 10*3/uL; Neutrophils # 6.6 10*3/uL (1.4-7.4); Neutrophils % 72.6 % (38.7-73.9); Platelet Count 178 T/CUMM (130-400); Red Blood Count 2.35 MC/CUMM (3.8-5.5); Red Cell Distribution Width 14.7 % (9.3-17.3); White Blood Count 9.1 T/CUMM (4-12)
[2017-07-02 06:32] LABS: Giant Platelets Few; Hypochromasia 1+; Lymphocytes 11 % (20-55); Microcytosis Slight; Ovalocytes Slight; Platelet Estimate Adequate; Segmented Neutrophils 82 % (50-85); Total Cells Counted 100
[2017-07-02] MEDS ORDERED: SODIUM CHLORIDE 0.9% 1,000 ML IV PRN (08:42)
[2017-07-02] MEDS: fentaNYL INJ 1,250 MCG in SODIUM CHLORIDE 0.9% 225 ML IV SCH ×2 (09:20→21:35)
[2017-07-02] MEDS: BACITRACIN OINT 28.35 GM TUBE TOP SCH (09:25)
[2017-07-02] MEDS: FAMOTIDINE 20 MG TABLET PO SCH (09:30)
[2017-07-02] MEDS: CILOSTAZOL 100 MG TABLET PO SCH ×2 (09:30→21:28)
[2017-07-02] MEDS: ASPIRIN CHEW 81 MG TABLET PO SCH (09:30)
[2017-07-02] MEDS: METOPROLOL TARTRATE 25 MG TABLET PO SCH ×2 (09:30→21:28)
[2017-07-02] MEDS: VANCOMYCIN INJ 1,000 MG in SODIUM CHLORIDE 0.9% 250 ML IV SCH (11:30)
[2017-07-02] MEDS: DEXTROSE 5% NACL 0.45% 1,000 ML IV SCH (11:30)
[2017-07-02] MEDS: ROSUVASTATIN 20 MG TABLET PO SCH (21:28)
[2017-07-02] MEDS: PHENYLEPHRINE DRIP 40 MG/250 ML PREMIX IV SCH (22:21)
[2017-07-03] MEDS: INSULIN LISPRO 100 UNIT/ML SUBCUT SCH ×4 (00:30→17:53)
[2017-07-03] MEDS: PROPOFOL 1,000 MG/100 ML BOTTLE IV SCH ×3 (00:31→23:22)
[2017-07-03] MEDS: METOCLOPRAMIDE 5 MG TABLET PO SCH ×4 (00:55→21:07)
[2017-07-03] MEDS: DEXTROSE 5% NACL 0.45% 1,000 ML IV SCH ×2 (00:58→16:02)
[2017-07-03] MEDS: ALBUTEROL/IPRATROPIUM 3 ML NEB RESP TX SCH ×4 (02:04→18:10)
[2017-07-03] MEDS: methylPREDNISolone SOD SUC 40 MG/1 ML VIAL IV SCH ×4 (03:20→21:06)
[2017-07-03] MEDS: DILTIAZEM 60 MG TABLET PO SCH ×4 (03:34→21:07)
[2017-07-03 04:48] LABS: ABG Base Excess -2.3 MMOL/L (-2.5-2.5); ABG HCO3 22.5 MMOL/L (20-26); ABG Oxygen Saturation 98.6 % (95-100); ABG PCO2 45.1 MM HG (35-48); ABG PH 7.326 (7.35-7.45); ABG TCO2 22.5 MMOL/L (23-27)
[2017-07-03 05:43] LABS: Basophils % 0.2 % (0.0-0.8); Hematocrit 26.8 VOL% (42.0-52.0); Immature Granulocytes % 5.3 %; Immature Granulocytes Absolute 0.52 #; Lymphocytes # 0.9 10*3/uL (1.4-4.0); Lymphocytes % 9.7 % (21.2-54.2); Mean Corpuscular HGB Conc 31.7 GM/DL (32-36); Mean Corpuscular Hemoglobin 28 PG (27-34); Mean Platelet Volume 10.8 FL (9.6-12.0); Monocytes % 10.3 % (1.7-12.7); NRBC # 0.23 10*3/uL; Neutrophils # 7.2 10*3/uL (1.4-7.4); Neutrophils % 74.5 % (38.7-73.9); Platelet Count 180 T/CUMM (130-400); Red Blood Count 3.01 MC/CUMM (3.8-5.5); Red Cell Distribution Width 14.6 % (9.3-17.3); White Blood Count 9.7 T/CUMM (4-12)
[2017-07-03] MEDS: ENOXAPARIN 80 MG/0.8 ML SYRINGE SUBCUT SCH (05:46)
[2017-07-03] MEDS: PIPERACILLIN/TAZOBACTAM 3,375 MG in SODIUM CHLORIDE 0.9% 100 ML IV SCH ×3 (05:50→23:23)
[2017-07-03 05:54] LABS: Hemoglobin 8.5 GM/DL (14.0-18.0)
[2017-07-03 06:18] LABS: Calcium 6.7 MG/DL (8.5-10.1); Osmolality,Calculated 300.3 MOS/KG (273-304); Potassium 4.4 MMOL/L (3.5-5.1)
[2017-07-03 06:23] LABS: Lymphocytes 14 % (20-55); Nucleated Red Blood Cells 3 (0-5); Platelet Estimate Normal; Segmented Neutrophils 77 % (50-85); Total Cells Counted 100
[2017-07-03 06:24] LABS: Giant Platelets Few; Hypochromasia Slight; Microcytosis Slight
[2017-07-03] MEDS: ASPIRIN CHEW 81 MG TABLET PO SCH (08:22)
[2017-07-03] MEDS: METOPROLOL TARTRATE 25 MG TABLET PO SCH ×2 (08:22→21:07)
[2017-07-03] MEDS: FAMOTIDINE 20 MG TABLET PO SCH (08:22)
[2017-07-03] MEDS: CILOSTAZOL 100 MG TABLET PO SCH ×2 (08:22→21:07)
[2017-07-03] MEDS: BACITRACIN OINT 28.35 GM TUBE TOP SCH (08:24)
[2017-07-03] MEDS: fentaNYL INJ 1,250 MCG in SODIUM CHLORIDE 0.9% 225 ML IV SCH ×3 (11:31→23:22)
[2017-07-03] MEDS: PHENYLEPHRINE DRIP 40 MG/250 ML PREMIX IV SCH ×2 (20:07→23:23)
[2017-07-03] MEDS: ROSUVASTATIN 20 MG TABLET PO SCH (21:06)
[2017-07-04] MEDS: INSULIN LISPRO 100 UNIT/ML SUBCUT SCH ×4 (00:15→20:06)
[2017-07-04] MEDS: ALBUTEROL/IPRATROPIUM 3 ML NEB RESP TX SCH ×4 (00:33→19:35)
[2017-07-04 03:09] LABS: Basophils % 0.1 % (0.0-0.8); Hematocrit 18.1 VOL% (42.0-52.0); Immature Granulocytes % 8.6 %; Immature Granulocytes Absolute 0.71 #; Lymphocytes # 0.5 10*3/uL (1.4-4.0); Lymphocytes % 5.5 % (21.2-54.2); Mean Corpuscular HGB Conc 32.6 GM/DL (32-36); Mean Corpuscular Hemoglobin 29 PG (27-34); Mean Corpuscular Volume 87.9 FL (87-102); Mean Platelet Volume 10.6 FL (9.6-12.0); Monocytes # 0.6 10*3/uL (0.11-0.8); Monocytes % 7.7 % (1.7-12.7); NRBC # 0.14 10*3/uL; Neutrophils # 6.4 10*3/uL (1.4-7.4); Neutrophils % 78.1 % (38.7-73.9); Platelet Count 224 T/CUMM (130-400); Red Blood Count 2.06 MC/CUMM (3.8-5.5); Red Cell Distribution Width 14.3 % (9.3-17.3); White Blood Count 8.2 T/CUMM (4-12)
[2017-07-04 03:18] LABS: Hemoglobin 5.9 GM/DL (14.0-18.0)
[2017-07-04 03:22] LABS: ABG Base Excess -0.6 MMOL/L (-2.5-2.5); ABG HCO3 23.9 MMOL/L (20-26); ABG Oxygen Saturation 97.7 % (95-100); ABG PCO2 36.3 MM HG (35-48); ABG PH 7.422 (7.35-7.45); ABG PO2 91.5 MM HG (80-95); ABG TCO2 22.6 MMOL/L (23-27)
[2017-07-04 03:35] LABS: Calcium 6.9 MG/DL (8.5-10.1); Osmolality,Calculated 309.1 MOS/KG (273-304); Potassium 3.9 MMOL/L (3.5-5.1)
[2017-07-04 03:45] LABS: Immature Granulocytes % 8.5 %; Immature Granulocytes Absolute 0.73 #; Lymphocytes # 0.4 10*3/uL (1.4-4.0); Lymphocytes % 4.8 % (21.2-54.2); Mean Corpuscular HGB Conc 32.8 GM/DL (32-36); Mean Corpuscular Hemoglobin 29 PG (27-34); Mean Corpuscular Volume 88.2 FL (87-102); Mean Platelet Volume 10.4 FL (9.6-12.0); Monocytes # 0.6 10*3/uL (0.11-0.8); Monocytes % 7.5 % (1.7-12.7); NRBC # 0.16 10*3/uL; Neutrophils # 6.8 10*3/uL (1.4-7.4); Neutrophils % 79.2 % (38.7-73.9); Platelet Count 230 T/CUMM (130-400); Red Blood Count 2.04 MC/CUMM (3.8-5.5); Red Cell Distribution Width 14.2 % (9.3-17.3); White Blood Count 8.6 T/CUMM (4-12)
[2017-07-04 03:48] LABS: Hemoglobin 5.9 GM/DL (14.0-18.0)
[2017-07-04] MEDS: METOCLOPRAMIDE 5 MG TABLET PO SCH ×4 (03:54→21:35)
[2017-07-04] MEDS: DILTIAZEM 60 MG TABLET PO SCH ×4 (03:54→21:37)
[2017-07-04] MEDS: methylPREDNISolone SOD SUC 40 MG/1 ML VIAL IV SCH ×4 (03:54→21:38)
[2017-07-04 04:13] LABS: Lymphocytes 9 % (20-55); Metamyelocytes 1 %; Myelocytes 1 %; Nucleated Red Blood Cells 2 (0-5); Segmented Neutrophils 87 % (50-85)
[2017-07-04 04:15] LABS: Giant Platelets Few; Hypochromasia 1+; Microcytosis 1+; Platelet Estimate Normal
[2017-07-04 04:17] LABS: Total Cells Counted 100
[2017-07-04] MEDS ORDERED: SODIUM CHLORIDE 0.9% 1,000 ML IV PRN (04:30)
[2017-07-04] MEDS: DEXTROSE 5% NACL 0.45% 1,000 ML IV SCH (04:52)
[2017-07-04] MEDS: ENOXAPARIN 80 MG/0.8 ML SYRINGE SUBCUT SCH (05:10)
[2017-07-04] MEDS: PROPOFOL 1,000 MG/100 ML BOTTLE IV SCH ×4 (05:11→21:39)
[2017-07-04 05:27] LABS: Giant Platelets Few; Hypochromasia 1+; Lymphocytes 6 % (20-55); Microcytosis 1+; Myelocytes 1 %; Nucleated Red Blood Cells 1 (0-5); Segmented Neutrophils 87 % (50-85); Total Cells Counted 100
[2017-07-04 05:28] LABS: Platelet Estimate Normal
[2017-07-04] MEDS: PIPERACILLIN/TAZOBACTAM 3,375 MG in SODIUM CHLORIDE 0.9% 100 ML IV SCH ×3 (05:56→21:40)
[2017-07-04] MEDS: fentaNYL INJ 1,250 MCG in SODIUM CHLORIDE 0.9% 225 ML IV SCH ×3 (06:28→18:29)
[2017-07-04] MEDS: METOPROLOL TARTRATE 25 MG TABLET PO SCH ×2 (08:57→21:36)
[2017-07-04] MEDS: FAMOTIDINE 20 MG TABLET PO SCH (08:57)
[2017-07-04] MEDS: CILOSTAZOL 100 MG TABLET PO SCH ×2 (08:57→21:35)
[2017-07-04] MEDS: BACITRACIN OINT 28.35 GM TUBE TOP SCH (08:58)
[2017-07-04] MEDS: ASPIRIN CHEW 81 MG TABLET PO SCH (08:58)
[2017-07-04] MEDS: VANCOMYCIN INJ 1,000 MG in SODIUM CHLORIDE 0.9% 250 ML IV SCH (12:02)
[2017-07-04 14:35] LABS: PT Patient Result 10.3 SECS
[2017-07-04 14:41] LABS: % Iron Saturation 28.9 % (18-50); Albumin 2.3 G/DL (3.4-5.0); Bilirubin,Direct 0.25 MG/DL (0.0-0.20); Bilirubin,Indirect 0.3 MG/DL (0.0-1.0); Bilirubin,Total 0.5 MG/DL (0.2-1.0); Ferritin 237.5 ng/ml (26-388); Total Protein 4.8 G/DL (6.4-8.3)
[2017-07-04] MEDS: ROSUVASTATIN 20 MG TABLET PO SCH (21:37)
[2017-07-05] MEDS: ALBUTEROL/IPRATROPIUM 3 ML NEB RESP TX SCH ×4 (00:21→19:09)
[2017-07-05] MEDS: fentaNYL INJ 1,250 MCG in SODIUM CHLORIDE 0.9% 225 ML IV SCH ×2 (01:54→13:38)
[2017-07-05] MEDS: METOCLOPRAMIDE 5 MG TABLET PO SCH ×4 (02:45→21:35)
[2017-07-05] MEDS: DILTIAZEM 60 MG TABLET PO SCH ×4 (02:45→21:36)
[2017-07-05] MEDS: methylPREDNISolone SOD SUC 40 MG/1 ML VIAL IV SCH ×4 (02:46→21:37)
[2017-07-05] MEDS: PROPOFOL 1,000 MG/100 ML BOTTLE IV SCH ×3 (03:10→21:11)
[2017-07-05 03:44] LABS: Basophils % 0.1 % (0.0-0.8); Hematocrit 25.5 VOL% (42.0-52.0); Immature Granulocytes % 3.7 %; Immature Granulocytes Absolute 0.34 #; Lymphocytes # 0.3 10*3/uL (1.4-4.0); Lymphocytes % 3.3 % (21.2-54.2); Mean Corpuscular HGB Conc 34.5 GM/DL (32-36); Mean Corpuscular Hemoglobin 30 PG (27-34); Mean Corpuscular Volume 85.6 FL (87-102); Mean Platelet Volume 10.6 FL (9.6-12.0); Monocytes # 0.6 10*3/uL (0.11-0.8); Monocytes % 6.1 % (1.7-12.7); NRBC # 0.11 10*3/uL; Neutrophils # 7.9 10*3/uL (1.4-7.4); Neutrophils % 86.8 % (38.7-73.9); Platelet Count 220 T/CUMM (130-400); Red Blood Count 2.98 MC/CUMM (3.8-5.5); Red Cell Distribution Width 14.2 % (9.3-17.3); White Blood Count 9.1 T/CUMM (4-12)
[2017-07-05 03:46] LABS: Hemoglobin 8.8 GM/DL (14.0-18.0)
[2017-07-05 04:09] LABS: Anisocytosis 1+; Band Neutrophils 5 % (0-10); Lymphocytes 3 % (20-55); Metamyelocytes 1 %; Nucleated Red Blood Cells 3 (0-5); Poikilocytosis 1+; Polychromasia Slight; Segmented Neutrophils 88 % (50-85); Total Cells Counted 100
[2017-07-05 04:17] LABS: Calcium 7.1 MG/DL (8.5-10.1); Potassium 3.9 MMOL/L (3.5-5.1)
[2017-07-05] MEDS: PIPERACILLIN/TAZOBACTAM 3,375 MG in SODIUM CHLORIDE 0.9% 100 ML IV SCH ×3 (05:22→21:45)
[2017-07-05] MEDS: INSULIN LISPRO 100 UNIT/ML SUBCUT SCH ×4 (05:26→18:05)
[2017-07-05] MEDS: PHENYLEPHRINE DRIP 40 MG/250 ML PREMIX IV SCH ×2 (07:31→21:38)
[2017-07-05 07:59] LABS: Allen Test Positive; Pt O2 Delivery Device Ventilator
[2017-07-05 08:00] LABS: ABG Base Excess -0.8 MMOL/L (-2.5-2.5); ABG HCO3 25.8 MMOL/L (20-26); ABG Oxygen Saturation 96.3 % (95-100); ABG PCO2 51.6 MM HG (35-48); ABG PH 7.316 (7.35-7.45); ABG PO2 98.6 MM HG (80-95); ABG TCO2 27.3 MMOL/L (23-27)
[2017-07-05] MEDS: CILOSTAZOL 100 MG TABLET PO SCH ×2 (08:34→21:36)
[2017-07-05] MEDS: ASPIRIN CHEW 81 MG TABLET PO SCH (08:35)
[2017-07-05] MEDS: FAMOTIDINE 20 MG TABLET PO SCH (08:35)
[2017-07-05] MEDS: METOPROLOL TARTRATE 25 MG TABLET PO SCH ×2 (08:35→21:35)
[2017-07-05] MEDS: BACITRACIN OINT 28.35 GM TUBE TOP SCH (08:40)
[2017-07-05] MEDS: ROSUVASTATIN 20 MG TABLET PO SCH (21:37)
[2017-07-06] MEDS: INSULIN LISPRO 100 UNIT/ML SUBCUT SCH ×4 (00:36→18:41)
[2017-07-06] MEDS: ALBUTEROL/IPRATROPIUM 3 ML NEB RESP TX SCH ×4 (01:17→19:21)
[2017-07-06] MEDS: METOCLOPRAMIDE 5 MG TABLET PO SCH ×4 (03:05→20:15)
[2017-07-06] MEDS: methylPREDNISolone SOD SUC 40 MG/1 ML VIAL IV SCH ×4 (03:05→20:15)
[2017-07-06] MEDS: DILTIAZEM 60 MG TABLET PO SCH ×4 (03:05→20:16)
[2017-07-06] MEDS: PROPOFOL 1,000 MG/100 ML BOTTLE IV SCH ×4 (03:07→22:06)
[2017-07-06] MEDS: fentaNYL INJ 1,250 MCG in SODIUM CHLORIDE 0.9% 225 ML IV SCH ×4 (03:08→23:52)
[2017-07-06 04:34] LABS: Basophils % 0.1 % (0.0-0.8); Hemoglobin 8.6 GM/DL (14.0-18.0); Immature Granulocytes % 4.9 %; Immature Granulocytes Absolute 0.68 #; Lymphocytes # 0.3 10*3/uL (1.4-4.0); Lymphocytes % 1.9 % (21.2-54.2); Mean Corpuscular HGB Conc 33.1 GM/DL (32-36); Mean Corpuscular Hemoglobin 29 PG (27-34); Mean Corpuscular Volume 87.5 FL (87-102); Mean Platelet Volume 11.5 FL (9.6-12.0); Monocytes # 1.2 10*3/uL (0.11-0.8); Monocytes % 8.4 % (1.7-12.7); Neutrophils # 11.7 10*3/uL (1.4-7.4); Neutrophils % 84.7 % (38.7-73.9); Platelet Count 178 T/CUMM (130-400); Red Blood Count 2.97 MC/CUMM (3.8-5.5); Red Cell Distribution Width 14.6 % (9.3-17.3); White Blood Count 13.8 T/CUMM (4-12)
[2017-07-06 04:57] LABS: Calcium 7.7 MG/DL (8.5-10.1); Osmolality,Calculated 312.7 MOS/KG (273-304); Potassium 4.3 MMOL/L (3.5-5.1)
[2017-07-06 05:31] LABS: Hypochromasia 1+; Lymphocytes 8 % (20-55); Microcytosis 1+; Segmented Neutrophils 86 % (50-85); Total Cells Counted 100
[2017-07-06] MEDS: PIPERACILLIN/TAZOBACTAM 3,375 MG in SODIUM CHLORIDE 0.9% 100 ML IV SCH ×3 (05:44→22:39)
[2017-07-06] MEDS: CILOSTAZOL 100 MG TABLET PO SCH ×2 (09:36→20:15)
[2017-07-06] MEDS: FAMOTIDINE 20 MG TABLET PO SCH (09:36)
[2017-07-06] MEDS: METOPROLOL TARTRATE 25 MG TABLET PO SCH ×2 (09:36→20:16)
[2017-07-06] MEDS: ASPIRIN CHEW 81 MG TABLET PO SCH (09:36)
[2017-07-06] MEDS: VANCOMYCIN INJ 1,000 MG in SODIUM CHLORIDE 0.9% 250 ML IV SCH (12:16)
[2017-07-06] MEDS: BACITRACIN OINT 28.35 GM TUBE TOP SCH (12:17)
[2017-07-06] MEDS: SKIN HEALING OINT (AQUAPHOR) 50 GM TUBE TOP PRN (14:23)
[2017-07-06] MEDS: FUROSEMIDE 40 MG/4 ML VIAL IV SCH ×2 (16:38→20:16)
[2017-07-06] MEDS: ROSUVASTATIN 20 MG TABLET PO SCH (20:15)
[2017-07-06] MEDS: PHENYLEPHRINE DRIP 40 MG/250 ML PREMIX IV SCH (22:07)
[2017-07-07] MEDS: INSULIN LISPRO 100 UNIT/ML SUBCUT SCH ×4 (00:36→18:26)
[2017-07-07] MEDS: ALBUTEROL/IPRATROPIUM 3 ML NEB RESP TX SCH ×4 (00:40→19:32)
[2017-07-07] MEDS: DILTIAZEM 60 MG TABLET PO SCH ×4 (03:35→21:09)
[2017-07-07] MEDS: METOCLOPRAMIDE 5 MG TABLET PO SCH ×4 (03:36→21:09)
[2017-07-07] MEDS: methylPREDNISolone SOD SUC 40 MG/1 ML VIAL IV SCH ×4 (03:36→21:09)
[2017-07-07 03:40] LABS: ABG HCO3 27.1 MMOL/L (20-26); ABG Oxygen Saturation 97.7 % (95-100); ABG PCO2 46.2 MM HG (35-48); ABG PH 7.395 (7.35-7.45); ABG PO2 97.1 MM HG (80-95); ABG TCO2 26.4 MMOL/L (23-27); Allen Test Positive; Pt O2 Delivery Device Ventilator
[2017-07-07] MEDS: PROPOFOL 1,000 MG/100 ML BOTTLE IV SCH ×4 (04:31→21:26)
[2017-07-07] MEDS: PIPERACILLIN/TAZOBACTAM 3,375 MG in SODIUM CHLORIDE 0.9% 100 ML IV SCH ×3 (06:06→21:25)
[2017-07-07 06:30] LABS: Basophils % 0.1 % (0.0-0.8); Hemoglobin 8.5 GM/DL (14.0-18.0); Immature Granulocytes % 2.4 %; Immature Granulocytes Absolute 0.43 #; Lymphocytes # 0.4 10*3/uL (1.4-4.0); Mean Corpuscular Hemoglobin 29 PG (27-34); Mean Corpuscular Volume 86.2 FL (87-102); Mean Platelet Volume 10.8 FL (9.6-12.0); Monocytes # 1.2 10*3/uL (0.11-0.8); Monocytes % 6.5 % (1.7-12.7); NRBC # 0.07 10*3/uL; Neutrophils # 15.9 10*3/uL (1.4-7.4); Platelet Count 246 T/CUMM (130-400); Red Cell Distribution Width 14.8 % (9.3-17.3); White Blood Count 17.9 T/CUMM (4-12)
[2017-07-07 06:51] LABS: Giant Platelets Few; Hypochromasia 1+; Lymphocytes 2 % (20-55); Nucleated Red Blood Cells 1 (0-5); Ovalocytes Slight; Platelet Estimate Adequate; Segmented Neutrophils 89 % (50-85); Total Cells Counted 100
[2017-07-07 06:52] LABS: Microcytosis 1+
[2017-07-07 07:07] LABS: Prealbumin 25.1 MG/DL (20-40)
[2017-07-07 07:14] LABS: Calcium 8.1 MG/DL (8.5-10.1); Osmolality,Calculated 312.6 MOS/KG (273-304); Potassium 3.9 MMOL/L (3.5-5.1)
[2017-07-07] MEDS: CILOSTAZOL 100 MG TABLET PO SCH ×2 (08:37→21:09)
[2017-07-07] MEDS: FAMOTIDINE 20 MG TABLET PO SCH (08:37)
[2017-07-07] MEDS: ASPIRIN CHEW 81 MG TABLET PO SCH (08:37)
[2017-07-07] MEDS: FUROSEMIDE 40 MG/4 ML VIAL IV SCH ×3 (08:37→21:10)
[2017-07-07] MEDS: METOPROLOL TARTRATE 25 MG TABLET PO SCH ×2 (08:37→21:09)
[2017-07-07] MEDS: BACITRACIN OINT 28.35 GM TUBE TOP SCH (11:58)
[2017-07-07] MEDS: fentaNYL INJ 1,250 MCG in SODIUM CHLORIDE 0.9% 225 ML IV SCH ×2 (12:00→21:56)
[2017-07-07] MEDS: ROSUVASTATIN 20 MG TABLET PO SCH (21:09)
[2017-07-07] MEDS: PHENYLEPHRINE DRIP 40 MG/250 ML PREMIX IV SCH (23:11)
[2017-07-08] MEDS: INSULIN LISPRO 100 UNIT/ML SUBCUT SCH ×3 (01:01→14:14)
[2017-07-08] MEDS: ALBUTEROL/IPRATROPIUM 3 ML NEB RESP TX SCH ×3 (01:51→12:28)
[2017-07-08] MEDS: PROPOFOL 1,000 MG/100 ML BOTTLE IV SCH ×2 (01:53→11:06)
[2017-07-08] MEDS: DILTIAZEM 60 MG TABLET PO SCH ×3 (03:44→14:13)
[2017-07-08] MEDS: methylPREDNISolone SOD SUC 40 MG/1 ML VIAL IV SCH ×3 (03:45→14:13)
[2017-07-08] MEDS: METOCLOPRAMIDE 5 MG TABLET PO SCH ×3 (03:45→14:13)
[2017-07-08] MEDS: PIPERACILLIN/TAZOBACTAM 3,375 MG in SODIUM CHLORIDE 0.9% 100 ML IV SCH ×3 (05:15→14:36)
[2017-07-08 06:28] LABS: Basophils % 0.1 % (0.0-0.8); Hematocrit 25.2 VOL% (42.0-52.0); Hemoglobin 8.1 GM/DL (14.0-18.0); Immature Granulocytes % 2.8 %; Immature Granulocytes Absolute 0.58 #; Lymphocytes # 0.3 10*3/uL (1.4-4.0); Lymphocytes % 1.5 % (21.2-54.2); Mean Corpuscular HGB Conc 32.1 GM/DL (32-36); Mean Corpuscular Hemoglobin 29 PG (27-34); Mean Corpuscular Volume 89.4 FL (87-102); Mean Platelet Volume 10.8 FL (9.6-12.0); Monocytes # 1.1 10*3/uL (0.11-0.8); Monocytes % 5.2 % (1.7-12.7); NRBC # 0.09 10*3/uL; Neutrophils # 18.8 10*3/uL (1.4-7.4); Neutrophils % 90.4 % (38.7-73.9); Platelet Count 237 T/CUMM (130-400); Red Blood Count 2.82 MC/CUMM (3.8-5.5); Red Cell Distribution Width 14.7 % (9.3-17.3); White Blood Count 20.7 T/CUMM (4-12)
[2017-07-08 06:53] LABS: Band Neutrophils 2 % (0-10); Giant Platelets Few; Hypochromasia 1+; Lymphocytes 2 % (20-55); Microcytosis Slight; Platelet Estimate Adequate; Segmented Neutrophils 92 % (50-85); Total Cells Counted 100
[2017-07-08 06:57] LABS: Calcium 8.1 MG/DL (8.5-10.1); Osmolality,Calculated 319.4 MOS/KG (273-304); Potassium 3.7 MMOL/L (3.5-5.1)
[2017-07-08] MEDS: BACITRACIN OINT 28.35 GM TUBE TOP SCH (08:50)
[2017-07-08] MEDS: FUROSEMIDE 40 MG/4 ML VIAL IV SCH ×2 (09:41→14:13)
[2017-07-08] MEDS: FAMOTIDINE 20 MG TABLET PO SCH (09:41)
[2017-07-08] MEDS: CILOSTAZOL 100 MG TABLET PO SCH (09:41)
[2017-07-08] MEDS: ASPIRIN CHEW 81 MG TABLET PO SCH (09:41)
[2017-07-08] MEDS: METOPROLOL TARTRATE 25 MG TABLET PO SCH (09:41)
[2017-07-08] MEDS ORDERED: POTASSIUM CHLORIDE RIDER 100 ML IV ONE (10:57)
[2017-07-08] MEDS: VANCOMYCIN INJ 1,000 MG in SODIUM CHLORIDE 0.9% 250 ML IV SCH (14:13)
[2017-07-08 17:44] VITALS: BP 165/67
[2017-07-08] MEDS ORDERED: POTASSIUM CHLORIDE RIDER 20 MEQ in PREMIX 1 EACH IV PRN (17:56)
== END 2017-07-08 15:30 | DRG 870 ==
LOC: N.ED 10:00 → SUATTDRO 11:54 → N.EDINP 11:54 → N.2E 12:29 → N.ICU 21:13
PROVIDERS: ADMIT Hospitalist; ATTEND Internal Medicine